=== PATIENT | female | born 1955 | race Caucasian/White ===

== ENCOUNTER 2021-09-29 08:45 | Outpatient (REF) | payer OTHER, SELFPAY ==
--- NOTE | ~2021-09-29 | MM_ITS ---
EXAMINATION: MM SCREENING DIGITAL BREAST TOMOSYNTHESIS, BILATERAL CLINICAL INFORMATION: Screening. Asymptomatic. The lifetime risk of breast cancer based on the Tyrer-Cuzick Model is 4.3%. COMPARISON: Mammography: 03/04/2016. TECHNIQUE: Digital breast tomosynthesis is performed in both the craniocaudal and mediolateral oblique views along with computer-aided detection (CAD). Synthesized 2D images are generated from the tomosynthesis. FINDINGS: There are scattered areas of fibroglandular density (ACR BI-RADS breast composition Category b). This is stable parenchymal pattern of the right breast. Within the superior medial aspect of the left breast, there is a well-circumscribed approximately 5 mm density, 4 cm from the nipple which was not seen on previous study. Targeted ultrasound evaluation is recommended. MM/MM tomosynthesis screening BI IMPRESSION: Left breast density for further evaluation with targeted ultrasound. ASSESSMENT: BI-RADS 0: Incomplete - Need Additional Imaging Evaluation RECOMMENDATION: Targeted ultrasound examination of the left breast. Radiology department staff will contact the patient for additional imaging.
== END 2021-09-29 08:46 | disposition home or self-care (01) ==
LOC: HO.MAMMO 08:45
PROVIDERS: Visit Provider Internal Medicine
DX: Z12.31 Encounter for screening mammogram for malignant neoplasm of breast (principal)
CPT/HCPCS: 77063; 77067

== ENCOUNTER 2021-11-04 11:04 | Outpatient (REF) | payer OTHER, MEDICAID, SELFPAY ==
--- NOTE | ~2021-11-04 | US_ITS ---
EXAMINATION: US DIAGNOSTIC ULTRASOUND BREAST, LEFT CLINICAL INFORMATION: Recall from screening for 5 mm smooth circumscribed nodule anterior 9:00 left breast, new from prior mammography 2017. COMPARISON: Mammography 09/29/2021, 03/04/2016. TECHNIQUE: Ultrasound left breast is is targeted to the medial breast using grayscale imaging and color Doppler without and with harmonics. FINDINGS: There is a 5 mm hypoechoic smooth nodule 9:00 position 5 cm from nipple corresponding to the finding on mammography. There are heterogeneous internal echoes and scattered posterior shadowing. There is questionable fine linear rim echogenicity which may represent rim calcification. Review of the recent mammography may show incomplete rim calcification, difficult to confirm with certainty. There is no internal or peripheral color flow. Results are discussed with the patient at time of visit. The finding is new from 2017, but otherwise long-term chronicity is unknown. There are no other mammogram since 2017. Management options discussed with patient, she favors ultrasound-guided core sampling. US/US breast LT limited IMPRESSION: 5 mm nodule 9:00 position anterior left breast with scattered posterior shadowing and heterogeneous internal echogenicity. This appears to correspond to the nodule on screening mammography, new since 2017. ASSESSMENT: BI-RADS 4: Suspicious RECOMMENDATION: Ultrasound-guided core biopsy left breast. This patient's information was entered into a reminder system with a target due date for their next mammogram.
== END 2021-11-04 11:05 | disposition home or self-care (01) ==
LOC: HO.MAMMO 11:04
PROVIDERS: PCP Internal Medicine; Visit Provider Internal Medicine
DX: R92.2 Inconclusive mammogram (principal)
CPT/HCPCS: 76642

== ENCOUNTER 2021-11-11 09:14 | Outpatient (REF) | payer OTHER, MEDICAID, SELFPAY ==
--- NOTE | ~2021-11-11 | MM_ITS ---
EXAMINATION: ULTRASOUND GUIDED CORE BIOPSY BREAST, LEFT POST PROCEDURE DIGITAL MAMMOGRAM, LEFT CLINICAL INFORMATION: Small nodule left breast for tissue sampling. COMPARISON: Mammography 09/29/2021, ultrasound 11/04/2021. FINDINGS: Proper informed consent is obtained from the patient after discussion of the procedure, potential risks and complications, and alternatives. Patient was given an opportunity for questions. The patient appeared to understand. The patient consented to the procedure and signed the consent form. GUIDANCE: Ultrasound-guided; aseptic technique. LESION: Circumscribed hypoechoic nodule 9:00 position with scattered internal echogenicity and no increased through-transmission of sound. APPROACH: Medial lateral. ANESTHESIA: 10 mL carbonated 1% lidocaine. DERMATOTOMY: Single skin smita dermatotomy performed. NEEDLE: 14-gauge Achieve core biopsy device with 13.5-gauge co-axial guide needle. CORES: 5. CLIP: HydroMARK; shape: Butterfly. POST PROCEDURE UNILATERAL DIGITAL MAMMOGRAM, LEFT: The post biopsy mammogram is performed in separate room using separate digital mammography equipment from the biopsy procedure. CC and ML views are obtained. There are scattered areas of fibroglandular density (breast composition category: b). The clip marker is in expected position. The nodule is not clearly seen although may be obscured by attenuation from local anesthesia and tissue sampling. No gross hematoma. The patient tolerated the procedure well. No immediate complications. Home instructions reviewed with the patient. Final pathology results are pending. MM/MM diagnostic mammo unilat LT IMPRESSION: 1. Status post ultrasound-guided core biopsy left breast. 2. Clip placed: HydroMARK; shape: butterfly. 3. Pathology pending. An addendum report will be issued.
[2021-11-11] MEDS: Lidocaine HCl 1 % 20 ML VIAL 10 ML SUBCUT (11:00)
[2021-11-11] MEDS: Sodium Bicarbonate 8.4% 50 MEQ/50 ML VIAL SUBCUT (11:02)
== END 2021-11-11 09:15 | disposition home or self-care (01) ==
LOC: HO.MAMMO 09:14
PROVIDERS: PCP Internal Medicine; Visit Provider Surgery
DX: N63.25 Unspecified lump in the left breast, overlapping quadrants (principal)
CPT/HCPCS: 19083; 77062; 77065; 88305; 99202

== ENCOUNTER → 2021-11-18 09:37 | Outpatient (BNVA) | payer OTHER, MEDICAID, SELFPAY | PROVIDERS: Visit Provider Surgery | DX: N63.20 Unspecified lump in the left breast, unspecified quadrant (principal) | CPT/HCPCS: 99212 ==

== ENCOUNTER 2023-05-24 07:47 | Outpatient (REF) | payer OTHER, SELFPAY ==
--- NOTE | ~2023-05-24 | MM_ITS ---
EXAMINATION: MM SCREENING DIGITAL BREAST TOMOSYNTHESIS, BILATERAL CLINICAL INFORMATION: Screening. Asymptomatic. The patient is status post benign percutaneous left breast biopsy in 2021 which showed nodular fat necrosis of the left breast. COMPARISON: Mammography: This study is compared with prior exams dating back to 2017. TECHNIQUE: Digital breast tomosynthesis is performed in both the craniocaudal and mediolateral oblique views along with computer-aided detection (CAD). Synthesized 2D images are generated from the tomosynthesis. FINDINGS: There are scattered areas of fibroglandular density (ACR BI-RADS breast composition Category b). There are no significant masses, abnormal calcifications, or other abnormalities. There is tissue marker present in a small,, well-circumscribed oval mass with some coarse calcification. This is the site of previously biopsied, benign fat necrosis. MM/MM tomosynthesis screening BI IMPRESSION: No mammographic evidence of malignancy. ASSESSMENT: BI-RADS BI-RADS 2 - Benign Findings RECOMMENDATION: Routine annual mammography screening. 1 year F/U This examination should not preclude the clinical evaluation of a suspicious palpable abnormality. This patient's information was entered into a reminder system with a target due date for their next mammogram.
== END 2023-05-24 07:48 | disposition home or self-care (01) ==
LOC: HO.MAMMO 07:47
PROVIDERS: PCP Physician Assistant; Visit Provider Physician Assistant
DX: Z12.31 Encounter for screening mammogram for malignant neoplasm of breast (principal)
CPT/HCPCS: 77063; 77067

== ENCOUNTER → 2023-05-24 08:00 | Outpatient (BNV) | payer OTHER, SELFPAY | PROVIDERS: PCP Physician Assistant; Visit Provider Radiology Diagnostic Radiology | DX: Z12.31 Encounter for screening mammogram for malignant neoplasm of breast (principal) | CPT/HCPCS: 77063; 77067 ==

== ENCOUNTER 2024-10-15 10:35 | Outpatient (AMB) | payer MEDICARE, SELFPAY ==
--- NOTE | 2024-10-15 10:40 | A.OFFVIS_ITS ---
Vital Signs 3 10/15/24 10:44 Height 5 ft 3.5 in Weight 156 lb BMI 27.2 BP 121/61 Blood Pressure Location Lt brachial Position Sitting Pulse 75 Pulse Source Pulse Oximeter Intake Visit Reasons: CHRONIC BACK PAIN Intake Note: Pain today 8.5 Audit Control Clerk Required: No Accompanied by: Self / Same As Patient Allergies codeine Allergy (Unknown, Verified 10/15/24 10:43) Unknown erythromycin base Allergy (Unknown, Verified 10/15/24 10:43) Unknown penicillin V Allergy (Unknown, Verified 10/15/24 10:43) Unknown Medication List - Last Reconciled 10/15/24 by Marycarmen Muro, RAJENDRA albuterol sulfate 90 mcg/actuation 2 puffs inhalation Q4H PRN apixaban (Eliquis) 5 mg PO BID diltiazem HCl CD (Cardizem CD) 180 mg PO DAILY duloxetine 60 mg PO DAILY duloxetine 30 mg PO DAILY lisinopril 10 mg PO DAILY pregabalin 25 mg PO DAILY trazodone 25 - 50 mg PO BEDTIME PRN HPI HPI CHRONIC BACK PAIN: Location: lower back Duration: 1 year Characteristics of symptom or complaint: stabbing, burning, pulling Aggravating or associated factors: driving, reaching, lifting, climbing stairs Relieving factors: ice, Treatment: PT, HPI Comments Details: The patient is a 69-year-old female presenting with chronic low back pain. The pain began after a fall in June of the previous year, which resulted in a compression fracture. She underwent rehabilitation at [facility] and physical therapy following the injury in July 2023. The patient's pain is described as constant, stabbing, burning, and pulling, with a severity of 9/10 in the morning and night, and 6/10 during the day. The pain is exacerbated by movements, walking, weather changes, and affects her sleep and daily activities. Activities such as driving, reaching, lifting, and climbing stairs are particularly difficult, and standing in one place is very challenging. The patient has a history of a traumatic brain injury in 2010, with no subsequent seizures. She also has polyneuropathy affecting her feet and hands, though the cause has not been determined. Additionally, she has a history of vascular surgery due to a blood clot in her left leg, for which she takes Eliquis. The patient lives alone but has a supportive social network and receives assistance from a helper twice a week. She retired early to care for a grandchild and previously ran a cleaning business. Currently, she manages her pain primarily with ice and avoids Motrin due to gastrointestinal concerns. - Onset: Began after a fall in June of the previous year - Quality: Constant, stabbing, burning, pulling - Severity: 9/10 in the morning and night, 6/10 during the day - Location: Lower back, radiating to thoracic region - Exacerbating factors: Movements, walking, weather changes - Relieving factors: None specifically mentioned - Interference: Affects sleep, daily activities, driving, reaching, lifting, climbing stairs, standing - Affect: Pain impacts sleep and daily activities - Analgesia: Currently using ice; avoids Motrin due to gastrointestinal concerns - Adverse Effects: None reported from current pain management - Activities of Daily Living: Pain interferes with driving, reaching, lifting, climbing stairs, standing - Aberrant Drug Related Behaviors: None reported Oswestry Low Back Pain Disability Score=26 [facility] Medical History Hyperlipidemia Major depression Stress incontinence Thoracic compression fracture DVT (deep venous thrombosis) Hypertension Traumatic brain injury Left breast mass Social History Alcohol intake: never Tobacco use type: Cigarette Review of Systems Const Details: - Musculoskeletal: Reports chronic low back pain, paraspinal and midline tenderness in lower thoracic and upper lumbar regions - Neurological: Reports polyneuropathy in feet and hands, denies seizures. Denies bladder or bowel dysfunction or saddle anesthesia. All systems reviewed & are unremarkable except as noted in HPI and below Physical Exam Vital Signs: Last Vital Signs Pulse 75 10/15/24 10:44 BP 121/61 10/15/24 10:44 BMI result Body Mass Index 27.2 General: Appears afebrile. Alert and oriented. Mood and affect appropriate. Follows and participates in conversation appropriately. Respiratory effort is unlabored. No cough. Able to transition from sit to stand unassisted. Ambulates with bilaterally normal heel strike and toe off. General: Yes no CVA tenderness Back/Spine/Pelvis Other: Limited thoracolumbar ROM due to pain. Lumbar extension and axial rotations reproduce moderate pain, flexion is intact and reproduces mild discomfort in the lower back. Demonstrates 5/5 strength of quadriceps bilaterally as well as flexion/dorsiflexion of bilateral feet against resistance. 2+ pedal pulses bilaterally. Straight leg rise with dorsiflexion negative bilaterally. +2 patellar and achilles reflexes bilaterally. Facet loading test positive bilaterally. Karissa sign, Erick?s, Gaenslen, Pelvic compression and Stinchfield tests are positive bilaterally. No groin pain with I/E hip rotations. Valsalva maneuver negative. Back: no CVA tenderness Cervical Spine: cervical ROM normal, cervical muscular tenderness and No Cervical spine tenderness Thoracic/Lumbar Spine: thoracic and lumbar spine normal to inspection, No Thoracic/lumbar spine scar(s), Lasegue's sign negative, straight leg raise negative bilaterally, pain with thoraco-lumbar ROM, paraspinal muscle tenderness on the right greater than left, thoraco-lumbar ROM limited, thoracic spinal tenderness (lower thoracic) and lumbar spinal tenderness (upper lumbar) Sacroiliac joints: bilaterally tender to palpation Results Reviewed Results Reviewed: Assessment & Plan Assessment & Plan (1) Thoracic compression fracture: Comment: T7, T12 Code(s): S22.000A - Wedge compression fracture of unspecified thoracic vertebra, initial encounter for closed fracture Category: Medical (2) Chronic back pain: Code(s): M54.9 - Dorsalgia, unspecified; G89.29 - Other chronic pain Category: Medical (3) Spondylosis of thoracolumbar spine: Code(s): M47.815 - Spondylosis without myelopathy or radiculopathy, thoracolumbar region Category: Medical Plan The plan for managing the patient's chronic low back pain includes scheduling d iagnostic bilateral medial branch blocks at T12, L1, and L2 with local and fluoroscopy to confirm axial thoracolumbar pain. If the blocks provide relief, the patient may qualify for radiofrequency ablation or peripheral nerve stimulation, which could provide her a longer term pain relief. The patient is instructed to hold Eliquis for three days prior to the injections, pending approval from her primary care physician and insurance. A bone density scan is recommended to assess for osteoporosis, given the history of compression fractures. All questions and concerns have been answered and patient agreed with the treatment plan. Follow up after injections and sooner as needed. Patient was informed and verbally consented to the use of an ambient scribe for clinic note documentation during this visit. Orders: Orders 2 XR DEXA axial skeleton 10/15/24 M81.0 - Age-related osteoporosis without current pathological fracture, S22.000A - Wedge compression fracture of unspecified thoracic vertebra, initial encounter for closed fracture Coding Level of Care Code New Pt Level 4 (97470) Diagnoses Thoracic compression fracture S22.000A Chronic back pain M54.9; G89.29 Spondylosis of thoracolumbar spine M47.815
[2024-10-15 10:44] VITALS: BP 121/61; PULSE 75; BMI 27.2
--- OUTSIDE RECORDS SUMMARY | 2024-10-15 12:29 | XMS_ITS | Encounter Summary ---
Author Organization [facility] Address [address] [facility] [address] [place] [phone] Phone Care Team Providers Care Pilot Boat Operator Name Role Phone Salvador Khoury MD Primary Care Provider + Salvador Khoury MD Primary Care Provider + Roney Tracey MD Primary Care Provider [phone] Roney Tracey MD Primary Care Provider [phone] Yandel Man MD Primary Care Provider Raakn Mckinney MD Primary Care Provid er Encounter Details Date Type Department Care Team (Late st Contact Info) Description 07/23/2018 Ancillary Orders [facility],Outside Imaging [address] [place] [address] System, Provider Not In, PhD Partners [address] [address] Social History Tobacco Use Types Packs/Day Years Used Date Smoking Tobacco: Never Smokeless Tobacco: Never Alcohol Use Standard Drinks/Week Comments Not Currently 0 (1 standard drink = 0.6 oz pur e alcohol) Comments No Sex and Gender Information Value Date Recorded Sex Assigned at Female 06/11/2018 2:26 PM EDT Legal Sex Female 8:12 AM EDT Gender Identity Female 06/11/2018 2:26 PM EDT Sexual Orientation Lesbian or Lopez 06/19/2018 5: 11 PM EDT documented as of this encounter Plan of Treatment Not on file documented as of this encounter Results * Mammogram Outside (No Interpretation) (03/04/2016 12:00 AM EST) Narrative SYSTEMGENERATED, DOCUMENTATION - 07/23/2018 10:13 AM EDT This study is for PACS storage only and not for interpretation. us Provider Not In System PhD IMG OUTSIDE IMAGING W /OUT INTERPRETATION Final Result documented in this encounter Visit Diagnoses Not on filedocumented in this encounter Additional Health Concerns Infection Onset Date Last Indicated Resolved Time CoV-Risk 10/06/2021 10/06/2021 10/17/2021 1:21 AM EDT documented as of this encounter Care Teams Pilot Boat Operator Relationship Specialty Start Date End Date Salvador Khoury MD [email or web address] PCP - General Family Medicine 06/06/1801/06/19 Salvador Khoury MD [email or web address] PCP - General Family Medicine 01/07/1908/06 Roney Tracey MD [address] [place] [address] [email or web address] PCP - General Internal Medicine 08/22/19 07/19/20 Roney Tracey MD [address] [place] [address] PCP - General Internal Medicine 07/20/20 10/03/21 Yandel Man MD [address] [place] [phone] PCP - General Internal Medicine 10/04/21 08/11/24 Rakan Mckinney MD [address] [place] [phone] PCP - General Internal Medicine 08/12/24 documented as of this encounter Additional Source Comments The information contained in this document represents components of the legal health record. It is not the complete legal health record.[facility]
--- OUTSIDE RECORDS SUMMARY | 2024-10-15 12:29 | XMS_ITS | Encounter Summary ---
Author Organization [facility] Address [address] [facility] [place] [address] [place] [address] Phone Care Team Providers Care Insulation Helper Name Role Phone Roney Tracey MD Primary Care Provider [phone] Roney Tracey MD Primary Care Provider Yandel Man MD Primary Care Provider Rakan Mckinney MD Primary Care Provid er Encounter Details Date Type Department Care Team (Late st Contact Info) Description 08/30/2019 Procedure Pass [address] [place] [address] Social History Tobacco Use Types Packs/Day Years [...] on file documented as of this encounter Visit Diagnoses Not on filedocumented in this encounter Additional Health Concerns Infection Onset Date Last Indicated Resolved Time CoV-Risk 10/06/2021 10/06/2021 10/17/2021 1:21 AM EDT Assessment Noted Time PHQ-2 Depression Total Score: 0 08/21/19 20 8:21 AM EDT documented as of this encounter Care Teams Insulation Helper Relationship Specialty Start Date End Date Roney Tracey MD [address] [place] [address] [email or web address] PCP - General Internal Medicine 08/22/19 07/19/20 Roney Tracey MD [address] [place] [address] [email or web address] PCP - General Internal Medicine 07/20/20 10/03/21 Yandel Man MD [address] [place] [phone] PCP - General Internal Medicine 10/04/21 08/11/24 Rakan Mckinney MD [address] [place] [phone] PCP - General Internal Medicine 08/12/24 documented as of this encounter Additional Source Comments The information contained in this document represents components of the legal health record. It is not the complete legal health record.[facility]
--- OUTSIDE RECORDS SUMMARY | 2024-10-15 12:29 | XMS_ITS | Encounter Summary ---
Author Organization [facility] Address [address] [facility] [address] [place] [address] Phone Care Team Providers Care Flying Instructor Name Role Phone Salvador Khoury MD Primary Care Provider + Salvador Khoury MD Primary Care Provider + Roney Tracey MD Primary Care Provider [phone] Roney Tracey MD Primary Care Provider [phone] Yandel Man MD Primary Care Provider Rakan Mckinney MD Primary Care Provid er Encounter Details Date Type Department Care Team (Late st Contact Info) Description 09/10/2018 Ancillary Orders [facility] Sports Medicine [address] [place] [address] Tiara Ruelas MD [address] [place] [address] Orthopedics & Sports Medicine, [facility]. [place], [place] [id number] [email or web address] Social History Tobacco Use Types Packs/Day Years [...] documented as of this encounter Care Teams Flying Instructor Relationship Specialty Start Date End Date Salvador Khoury MD [email or web address] PCP - General Family Medicine 06/06/1801/06/19 Salvador Khoury MD [email or web address] PCP - General Family Medicine 01/07/1908/06 Roney Tracey MD [address] [place] [address] [email or web address] PCP - General Internal Medicine 08/22/19 07/19/20 Roney Tracey MD [address] [place] [phone] [email or web address] PCP - General Internal Medicine 07/20/20 10/03/21 Yandel Man MD [address] [place] [phone] PCP - General Internal Medicine 10/04/21 08/11/24 Rakan Mckinney MD [address] [place] [phone] PCP - General Internal Medicine 08/12/24 documented as of this encounter Additional Source Comments The information contained in this document represents components of the legal health record. It is not the complete legal health record.[facility]
--- OUTSIDE RECORDS SUMMARY | 2024-10-15 12:29 | XMS_ITS | Encounter Summary ---
Author Organization [facility] Address [address] [employer] [facility] [address] [place] [address] Phone Care Team Providers Care Frequency Checker Name Role Phone Marta Chauhan MD Primary Care Provider [phone] Salvador Khoury MD Primary Care Provider + Salvador Khoury MD Primary Care Provider + Roney Tracey MD Primary Care Provider [phone] Roney Tracey MD Primary Care Provider [phone] Yandel Man MD Primary Care Provider Rakan Mckinney MD Primary Care Provid er Encounter Details Date Type Department Care Team (Late st Contact Info) Description 04/20/2018 Procedure Pass [facility], [address] [place] [address] Social History Tobacco Use Types Packs/Day Years Used Date Smoking Tobacco: Never Assessed Comments Unknown Sex and Gender Information Value Date Recorded [...] documented as of this encounter Care Teams Frequency Checker Relationship Specialty Start Date End Date Marta Chauhan MD [address] [address] PCP - General 10/04/17 06/05/18 Salvador Khoury MD [address] [address] [email or web address] PCP - General Family Medicine 06/06/1801/06/19 Salvador Khoury MD [address] [address] [email or web address] PCP - General Family Medicine 01/07/1908/06 Roney Tracey MD [address] [place] [address] PCP - General Internal Medicine 08/22/19 07/19/20 Roney Tracey MD [address] [place] [address] PCP - General Internal Medicine 07/20/20 10/03/21 Yandel Man MD [address] [place] [phone] PCP - General Internal Medicine 10/04/21 08/11/24 Rakan Mckinney MD [address] [phone] PCP - General Internal Medicine 08/12/24 documented as of this encounter Additional Source Comments The information contained in this document represents components of the legal health record. It is not the complete legal health record.[facility]
--- OUTSIDE RECORDS SUMMARY | 2024-10-15 12:29 | XMS_ITS | Encounter Summary ---
Author Organization [facility] Address [address] [place] [address] Phone Care Team Providers Care Automotive Assembler Name Role Phone Marta Chauhan MD Primary Care Provider [phone] Marta Chauhan MD Primary Care Provider [phone] Salvador Khoury MD Primary Care Provider + Salvador Khoury MD Primary Care Provider + Roney Tracey MD Primary Care Provider [phone] Roney Tracey MD Primary Care Provider [phone] Yandel Man MD Primary Care Provider Rakan Mckinney MD Primary Care Provid er Encounter Details Date Type Department Care Team (Late st Contact Info) Description 09/26/2017 Procedure Pass [address] [place] [address] Social History Tobacco Use Types Packs/Day Years Used Date Smoking Tobacco: Never Assessed Comments Unknown Sex and Gender Information Value Date Recorded Sex Assigned at Female 06/11/2018 2:26 PM EDT Legal Sex Female 8:12 AM EDT Gender Identity Female 06/11/2018 2:26 PM EDT Sexual Orientation Lesbian or Lopez 06/19/2018 5: 11 PM EDT documented as of this encounter Last Filed Vital Signs Vital Sign Reading Time Taken Comments Blood Pressure - - Pulse - - Temperature - - Respiratory Rate - - Oxygen Saturation - - Inhaled Oxygen Concentration - - Weight 85.3 kg (188 lb) 09/28/2017 3:15 PM EDT Height 160 cm (5' 3 ) 09/28/2017 3:15 PM EDT Body Mass Index 33.3 09/28/2017 3:15 PM EDT documented in this encounter Plan of Treatment Not on file documented as of this encounter Visit Diagnoses Not on filedocumented in this encounter Additional Health Concerns Infection Onset Date Last Indicated Resolved Time CoV-Risk 10/06/2021 10/06/2021 10/17/2021 1:21 AM EDT documented as of this encounter Care Teams Automotive Assembler Relationship Specialty Start Date End Date Marta Chauhan MD [address] [address] [email or web address] PCP - General 10/04/17 06/05/18 Marta Chauhan MD [address] [address] [email or web address] PCP - General Internal Medicine 09/26/17 10/03/17 Salvador Khoury MD [address] [address] [email or web address] PCP - General Family Medicine 06/06/1801/06/19 Salvador Khoury MD [address] [address] PCP - General Family Medicine 01/07/1908/06 Roney Tracey MD [address] [place] [address] [email or web address] PCP - General Internal Medicine 08/22/19 07/19/20 Roney Tracey MD [address] [place] [address] [email or web address] PCP - General Internal Medicine 07/20/20 10/03/21 Yandel Man MD [address] [place] [phone] PCP - General Internal Medicine 10/04/21 08/11/24 Rakan Mckinney MD [address] [place] [phone] PCP - General Internal Medicine 08/12/24 documented as of this encounter Additional Source Comments The information contained in this document represents components of the legal health record. It is not the complete legal health record.[facility]
--- OUTSIDE RECORDS SUMMARY | 2024-10-15 12:29 | XMS_ITS | Encounter Summary ---
Author Organization [facility] Address [address] [facility] [address] [place] [address] Phone Care Team Providers Care Oracle Security Consultant Name Role Phone Salvador Khoury MD Primary Care Provider + Salvador Khoury MD Primary Care Provider + Roney Tracey MD Primary Care Provider [phone] Roney Tracey MD Primary Care Provider [phone] Yandel Man MD Primary Care Provider Rakan Mckinney MD Primary Care Provid er Encounter Details Date Type Department Care Team (Late st Contact Info) Description 08/28/2018 Procedure Pass [facility], [address] [address] Social History Tobacco Use Types Packs/Day Years [...] documented as of this encounter Care Teams Oracle Security Consultant Relationship Specialty Start Date End Date Salvador Khoury MD [email or web address] PCP - General Family Medicine 06/06/1801/06/19 Salvador Khoury MD [email or web address] PCP - General Family Medicine 01/07/1908/06 Roney Tracey MD [address] [place] [address] [email or web address] PCP - General Internal Medicine 08/22/19 07/19/20 Roney Tracey MD [address] [place] [phone] PCP - General Internal Medicine 07/20/20 10/03/21 Yandel Man MD [address] [place] [phone] PCP - General Internal Medicine 10/04/21 08/11/24 Rakan Mckinney MD [address] [place] [phone] PCP - General Internal Medicine 08/12/24 documented as of this encounter Additional Source Comments The information contained in this document represents components of the legal health record. It is not the complete legal health record.[facility]
--- OUTSIDE RECORDS SUMMARY | 2024-10-15 12:29 | XMS_ITS | Clinical Summary ---
Author Organization [facility] Address [address] [place] [address] Care Team Providers Care Sample Color Maker Name Role Phone Stella Rodriguez MD Primary Care Provider [phone] Allergies Active Allergy Reactions Criticality Noted Date Comments Azithromycin Rash Low 06/07/2018 Codeine Abdominal Pain 07/12/2020 Erythromycin Rash 07/12/2020 Latex, Natural Rubber 07/13/2020 Added based on information entered during case entry, please review and add reactions, type, and severity as needed Oxycodone Dizziness 06/07/2018 Medications apixaban (Eliquis) 5 mg tablet Take 5 mg by mouth 2 times daily. 0 Active busPIRone (BUSPAR) 5 mg tablet TAKE 1 TABLET BY MOUTH TWICE A DAY 1 Active gabapentin (NEURONTIN) 600 mg tablet Take 600 mg by mouth 3 times daily. 1 Active metoprolol succinate XL (TOPROL XL) 100 mg tablet 1 TABLET DAILYINSTR:FOR TEREMOR AND BP CONTROL CALL IF PALPITATIONS DO NOT CRUSH OR CHEW 0 Active risperiDONE (RisperDAL) 1 mg tablet TAKE 1 TABLET BY MOUTH EVERYDAY AT BEDTIME 0 Active LORazepam (ATIVAN) 0.5 mg tablet TAKE HALF A TABLET BY MOUTH EVERY 12 HOURS NEEDED FOR ANXIETY. 1 Active losartan (COZAAR) 50 mg tablet Take 50 mg by mouth daily. 0 Active FLUoxetine (PROzac) 10 mg capsule Take 10 mg by mouth daily. 1 Active HYDROcodone-rohith taminophen (NORCO) 7.5-325 mg per tablet TAKE 1 TABLET BY MOUTH EVERY 8 (EIGHT) HOURS NEEDED FOR PAIN (RIGHT LOWER BACK) 1 Active diclofenac (VOLTAREN) 1% gel 1 APPLICATION TOPICALLY 4 TIMES A DAY NEEDED FOR PAIN 1 Active ALPRAZolam (XANAX) 1 mg tablet Take 1 mg by mouth 4 times a day. 1 Active dicyclomine (BENTYL) 20 mg tablet Take 1 tablet (20 mg total) by mouth 3 times a day as needed (abdominal cramping). 20 tablet 1 Active ketoconazole (NIZORAL) 2% cream Apply topically to the affected area 2 times a day. 30 g 2 Active Active Problems No known active problems Social History Tobacco Use Types Packs/Day Years Used Date Smoking Tobacco: Never Smokeless Tobacco: Never Alcohol Use Standard Drinks/Week Comments Never 0 (1 standard drink = 0.6 oz pur e alcohol) Comments No Sex and Gender Information Value Date Recorded Sex Assigned at Not on file Legal Sex Female 9:47 AM EDT Gender Identity Not on file Sexual Orientation Not on file Last Filed Vital Signs Vital Sign Reading Time Taken Comments Blood Pressure 136/54 03/16/2021 9:07 AM EST Pulse 77 03/16/2021 9:07 AM EST Temperature 36.4 C (97.6 F) 03/16/2021 9:07 AM EST Respiratory Rate 16 03/16/2021 9:07 AM EST Oxygen Saturation 99% 03/16/2021 9:07 AM EST Inhaled Oxygen Concentration - - Weight 79 kg (174 lb 2.6 oz) 03/16/2021 7:41 AM EST Height 160 cm (5' 3 ) 03/16/2021 7:41 AM EST Body Mass Index 30.85 03/16/2021 7:41 AM EST Plan of Treatment Health Maintenance Due Date Last Done Comments Hepatitis C Screening 1955 Mammogram 1993 Osteoporosis Screening 04/23/2003 Pneumococcal Vaccine: 50+ Years (1 of 1 - PCV) 04/23/2003 Zoster Vaccines (1 of 2) 04/23/2003 DTaP,Tdap,and Td Vaccines (3 - Td or Tdap) 05/10/2021 05/11/2011, 05/11/2011 Colonoscopy 07/16/2021 07/16/2020, 07/16/2020, 07/16/2020 Alcohol/Substance Use Screening 02/07/2024 Depression Screening and Follow-Up 02/07/2024 Health Care Proxy Review 02/07/2024 Social Drivers of Health Annual Screening 02/07/2024 COVID-19 Vaccine (3 - 2024-2 6 season) 2024 12/14/2020, 05/07/2020 Influenza Vaccine (#1) 2024 10/15/2020 RSV Vaccine (60+ years old and patients) (1 - 1-dose 75+ series) 2028 Hepatitis B Vaccines Aged Out No long er eligible based on patient's age to complete this topic Procedures * Due to [place] [employer] law, this organization might not be sharing negative HIV tests. Procedure Name Priority Date/Time Associated Diagnosis Comments COLONOSCOPY 07/16/2020 from Last 3 Months or Most Recently Relevant to Health Maintenance Results * Due to [place] [employer] law, this organization might not be sharing negative HIV tests. * COLONOSCOPY (07/16/2020) Narrative Procedure Note Jaron Madrid MD PhD - 07/16/2020 8:34 AM EDT Gastroenterology Patient Name: Thomas Dyer Procedure Date: 07/16/2020 8:34 AM Date of : 1955 Admit Type: Outpatient Age: 65 Room: [place] [address] Gender: Female Note Status: Finalized Attending MD: Jared Madrid MD Procedure: Colonoscopy Indications: Clinically significant diarrhea of unexplained origin Comorbidities Providers: Jared Madrid MD, Kelvin Dyer MD (Fellow) Referring MD: Catracho Clemente MD (Referring MD) Requesting Provider: Medicines: Monitored Anesthesia Care Complications: No immediate complications. Estimated Blood Loss: Estimated blood loss was minimal. Procedure: After I obtained informed consent, the scope was passed under direct vision. Throughout the procedure, the patient's blood pressure, pulse, and oxygen saturations were monitored continuously. The Colonoscope was introduced through the anus and advanced to the cecum, identified by appendiceal orifice and ileocecal valve.The colonoscopy was performed without difficulty. Thepatient tolerated the procedure well. The quality of the bowel preparation was poor. Findings: Hemorrhoids were found on perianal exam. A moderate amount of semi-liquid stool was found in the sigmoidcolon, in the descending colon, in the ascending colon and in the cecum, interfering with visualization. Biopsies for histology were taken with a cold forceps from the right colon and left colon for evaluation of microscopic colitis. The retroflexed view of the distal rectum and anal verge was normaland showed no anal or rectal abnormalities. Impression: - Preparation of the colon was poor. - Hemorrhoids found on perianal exam. - Stool in the sigmoid colon, in the descending colon,in the ascending colon and in the cecum. - The distal rectum and anal verge are normal on retroflexion view. - Biopsies were taken with a cold forceps from theright colon and left colon for evaluation of microscopiccolitis. Recommendation: - The patient will be observed post-procedure, untilall discharge criteria are met. - Discharge patient to home. - Advance diet as tolerated. - Resume Eliquis (apixaban) at prior dose today. - Await pathology results. - Repeat colonoscopy in 1 year for surveillance given history of colon polyps and poor prep. Attending Participation: I was present and participated during the entire procedure, including non-singleton portions. Jared Madrid MD 07/16/2020 9:06:13 AM This report has been signed electronically. Number of Addenda: 0 Note Initiated On: 07/16/2020 8:34 AM Jaron Madrid MD PhD PROVATION PROCEDURES Final Result from Last 3 Months or Most Recently Relevant to Health Maintenance Insurance [facility] [id number] [id number] Care Teams Sample Color Maker Relationship Specialty Start Date End Date Stella Rodriguez MD [address] [place] [address] PCP - General 03/16/21
--- OUTSIDE RECORDS SUMMARY | 2024-10-15 12:29 | XMS_ITS | Encounter Summary ---
Author Organization [facility] Address [address] [facility] [address] [place] [address] Phone Care Team Providers Care Casing Wringer Operator Name Role Phone Yandel Man MD Primary Care Provider Rakna Mckinney MD Primary Care Provid er Encounter Details Date Type Department Care Team (Late st Contact Info) Description 10/06/2021 Procedure Pass [facility], [facility] - [address] [address] Social History Tobacco Use Types Packs/Day Years Used Date Smoking Tobacco: Former Cigarettes 0.5 10 Smokeless Tobacco: Never Comments:quit 30 yrs ago Alcohol Use Standard Drinks/Week Comments Not Currently 0 (1 standard drink = 0.6 oz pur e alcohol) Comments No Sex and Gender Information Value Date Recorded Sex Assigned at Female 06/11/2018 2:26 PM EDT Legal Sex Female 8:12 AM EDT Gender Identity Female 06/11/2018 2:26 PM EDT Sexual Orientation Lesbian or Lopez 06/19/2018 5: 11 PM EDT documented as of this encounter Functional Status * Calculated C-SSRS Risk Score (Lifetime/Recent) Answer Date of Assessment Author No Risk Indicated 10/06/2021 6:41 AM EDT Frances Ramos RN * [place] Suicide Severity Rating Scale (Screener/Recent Self-Report) Question Answer Date of Assessment Author 1. Wish to be (Past 1 Month) No 022 6:41 AM EDT Frances Ramos RN 2. Non-Specific Active Suici hermelindo Thoughts (Past 1 Month) No 10/06/2021 6:41 AM EDT Eunice Ramos RN 6. Suicidal Behavior (Lifetime) No 6:41 AM EDT Frances Ramos RN documented as of this encounter Plan of Treatment Not on file documented as of this encounter Visit Diagnoses Not on filedocumented in this encounter Additional Health Concerns Infection Onset Date Last Indicated Resolved Time CoV-Risk 10/06/2021 10/06/2021 10/17/2021 1:21 AM EDT Assessment Noted Time PHQ-2 Depression Total Score: 0 08/21/19 20 8:21 AM EDT documented as of this encounter Care Teams Casing Wringer Operator Relationship Specialty Start Date End Date Yandel Man MD [address] [place] [phone] PCP - General Internal Medicine 10/04/21 08/11/24 Rakan Mckinney MD [address] [place] [phone] PCP - General Internal Medicine 08/12/24 documented as of this encounter Additional Source Comments The information contained in this document represents components of the legal health record. It is not the complete legal health record.[facility]
--- OUTSIDE RECORDS SUMMARY | 2024-10-15 12:29 | XMS_ITS | Encounter Summary ---
Author Organization [facility] Address [address] [address] Phone Care Team Providers Care Ring Rolling Machine Operator Name Role Phone Marta Chauhan MD Primary Care Provider [phone] Salvador Khoury MD Primary Care Provider + Salvador Khoury MD Primary Care Provider + Roney Tracey MD Primary Care Provider [phone] Roney Tracey MD Primary Care Provider [phone] Yandel Man MD Primary Care Provider Rakan Mckinney MD Primary Care Provid er Encounter Details Date Type Department Care Team (Late st Contact Info) Description 04/20/2018 Ancillary Orders Virtual Department [address] [place] [address] Marta Chauhan MD [address] [place] [address] [email or web address] Social History Tobacco Use Types Packs/Day Years [...] documented as of this encounter Care Teams Ring Rolling Machine Operator Relationship Specialty Start Date End Date Marta Chauhan MD [address] [address] [email or web address] PCP - General 10/04/17 06/05/18 Salvador Khoury MD [address] [address] [email or web address] PCP - General Family Medicine 06/06/1801/06/19 Salvador Khoury MD [address] [address] [email or web address] PCP - General Family Medicine 01/07/1908/06 Roney Tracey MD [address] [place] [address] [email or web address] PCP - General Internal Medicine 08/22/19 07/19/20 Roney Tracey MD [address] [place] [address] PCP - General Internal Medicine 07/20/20 10/03/21 Yandel Man MD [address] [place] [phone] PCP - General Internal Medicine 10/04/21 08/11/24 Rakan Mckinney MD [address] [place] [phone] PCP - General Internal Medicine 08/12/24 documented as of this encounter Additional Source Comments The information contained in this document represents components of the legal health record. It is not the complete legal health record.[facility]
--- OUTSIDE RECORDS SUMMARY | 2024-10-15 12:29 | XMS_ITS | Clinical Summary ---
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 back upper back and forearms did discuss the best treatment here is adequate sleeper stretching exercise. Patient states that she was given morphine sulfate as she is intolerant of the medications and seemed to work well we will try that for now but I am not in favor of doing on a chronic basis she is on gabapentin 300 mg 3 times a day already consider increasing the dose. 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 It is unclear whether she needs to remain on the anticoagulant but she does have a follow-up with Dr. Dorantes coming up in April. She'll remain on the anticoagulant and she will go with her activated sludge attendant who will pose the question whether the anticoagulant is permanent. Assessment & Plan (02/20/2019 7:43 PM EST): On chr anticoag wo recurrence and chr edema responds to support hose but rec wgt reduction to decr hydrostatic pressure Assessment & Plan (01/24/2019 12:26 PM EST): Reassured partner that eliquis doesn't have to be exactl;y q 12h as being usewd for prevention of DVT Assessment & Plan (12/26/2018 8:15 PM EST): Patient with a recent visit with interventional radiologist at [facility] said she still has some small clots these appear to be superficial she is on anti-and clotting factors and do not recommend any further follow-up kept the use of compression stockings which patient has no trouble putting on Assessment & Plan (12/13/2018 10:34 PM EST): [facility]ady [facility] w clots sds superficial lifelong eliquis wo bleeding trouble Assessment & Plan (08/28/2018 1:47 PM EDT): Patient remains on Eliquis, she does have chronic swelling and pain of the left lower extremity. Assessment & Plan (06/08/2018 11:30 AM EDT): patient with question may Thurner abnormality in the left femoral vein with acute DVT in February 28 was at [facility] for 6 days with thrombolysis and stents placed and been on chronic anticoagulation initially Lovenox and Coumadin now eliquis for at least 6 to 12 months question lifelong. Follow-up with interventional radiologist at [facility] Benign essential hypertension 06/08/2018 Assessment & Plan (07/03/2020 9:12 AM EDT): Hypertension well controlled with current listed antihypertensives. Denies side effects No change to dosing. Low Sodium diet reinforced. Continue to monitor condition. Assessment & Plan (06/08/2020 9:10 AM EDT): Hypertension well controlled with current listed antihypertensives. Denies side effects No change to dosing. Low Sodium diet reinforced. Continue to monitor condition. Assessment & Plan (11/11/2019 1:01 PM EDT): At 130/74 blood pressure is mildly elevated but okay for her age group. Continue to monitor. We will follow-up with the patient in about a month at which time we might consider repeating labs. Continue Avapro 150. Low-sodium diet reinforced Assessment & Plan (08/30/2019 12:54 PM EDT): Hypertension well controlled with current listed antihypertensives. Denies side effects No change to dosing. Low Sodium diet reinforced. Continue to monitor condition. Assessment & Plan (08/21/2019 6:57 PM EDT): Hypertension well controlled with current listed antihypertensives. Denies side effects No change to dosing. Low Sodium diet reinforced. Continue to monitor condition. Assessment & Plan (12/26/2018 8:16 PM EST): Blood pressure well controlled on losartan and metoprolol without side effects of meds Assessment & Plan (08/28/2018 1:47 PM EDT): Holding Avapro and Toprol-XL as above, restart medications after 24 hours. Assessment & Plan (06/08/2018 11:28 AM EDT): Patient with history of retention with low blood pressure no may be contributing some of her perceived weakness recommend decreasing the dose of the hyper Alexandra in half. Monitor at home review of her labs show no evidence of renal disease. Bipolar 1 disorder, depressed, moderate 06/09/19 19 Assessment & Plan (08/28/2018 1:49 PM EDT): Patient remains on Prozac in the morning, Xanax 4 times daily as needed, Risperidone at night, and Topamax at night. She is also on Neurontin 300 mg 3 times daily which I presume is ordered for her chronic body pain. Depending on CVA work-up, patient may need adjustment in these medications with the help of psychiatry. Assessment & Plan (06/08/2018 11:34 AM EDT): Patient multiple medications get some seems, duplicative including Topamax and gabapentin. States she is followed by the [facility] and her has a therapist there Karan Gomez. Will contact them hopefully to get records and to see if they would conceivably switch her Prozac or adding Cymbalta as it might have more pain relieving ability for total body/5 myalgia pain Glucose intolerance 06/08/2018 Assessment & Plan (11/11/2019 1:03 PM EDT): Recent lab study at less than 6.0% holding steady on metformin low-dose. Can repeat in about 6 months. Continue current Assessment & Plan (06/08/2018 11:35 AM EDT): Last A1c done by her third PCP was 5.1 prior to that was 5.8 sugars reviewed the highest I saw was 101 not see need for any medication at this time probably check twice a year Total body pain 06/07/2018 Assessment & Plan (12/25/2019 2:11 PM EST): This patient has a lot of osteoarthritis in the shoulders, elbows, knees and also in the lower back. The history of recent falls and somersault falls has led to her increased pain. We will increase the Vicodin from 5 to 10 mg over the weekend and I will regroup with her Monday or Monday to discuss both short and long-term treatment. Of course before that telephone visit if she is feeling drowsy with the additional 5 mg of hydrocodone she should call us up and I will investigate what other pathways there are to help with her pain. 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 For this she is taking the morphine sulfate previously prescribed by her previous primary care physician. We will not make any changes to the dosing at this time. Assessment & Plan (03/20/2019 10:36 PM EST): Total body pain somewhat dysarthric which is common and is needing some help do not feel that increasing her dose of morphine would be in her best interest and concerned about increasing her chance of falling. Assessment & Plan (01/24/2019 12:24 PM EST): Works well wo sedation but needs 1 or 2 tabs to decr pain so as to allow her to do her walking exrcise Assessment & Plan (12/13/2018 10:33 PM EST): Likely fibro and wants MS 2 tabs bid + drug contract Signed and denies use when driving Assessment & Plan (08/28/2018 1:49 PM EDT): Continue short acting morphine as prescribed, we will need to monitor her mental status as polypharmacy could be playing a role in the presentation. Continue Neurontin as prescribed, renal function is stable. Continue bowel regimen as prescribed. Assessment & Plan (06/27/2018 11:01 PM EDT): Patient with total body pain feels she probably has fibromyalgia but is not been able to function tolerating the morphine 3 to 4day and is feeling like it is functional and her bowels been moving she is gabapentin also. Did rx 120 for 1 motnh Assessment & Plan (06/08/2018 11:32 AM EDT): Qu estion to part to her traumatic brain injury 2000 but is the biggest mainly fibromyalgia variant question due to traumatic brain injury in 2000. Resolved Problems Problem Noted Date Diagnosed Date Resolved Date Hyponatremia 12/26/2018 03/18/2020 Assessment & Plan (09/18/2019 1:04 PM EDT): The patient's history of hyponatremia has had prompted us to obtain a Chem-7 which came back normal kidney function and normal sodium level at this time. We can follow the level of perhaps in a few months but for now patient is told that the hyponatremia has resolved. Assessment & Plan (08/30/2019 12:55 PM EDT): History of hyponatremia, obtain Chem-7, review of med list reveals no overtly offending agents such as hydrochlorothiazide, other agents however possible SIADH. Will compare sodium level with prior sodium levels, no overt signs of hyponatremia on exam. Assessment & Plan (08/21/2019 6:56 PM EDT): This is thought to be a 1 off but could have been recurring hyponatremia secondary to SIADH associated with pituitary damage. Check Chem-7 to assess for hyponatremia. Assessment & Plan (12/26/2018 8:17 PM EST): Patient with history of hyponatremia moderately severe with one admission last few been normal will check CHEM profile. Trochanteric bursitis of left hip 09/12/2018 03/20/2019 Assessment & Plan (09/12/2018 12:12 PM EDT): Patient with an element of bursitis on top of her trigger point as evidenced by the fact that the right one is improved after her shot from the orthopedist do not see the need for her to getting any intra-articular joint shot in the hip but I though it was a waste of the visit did post consent risks of bleeding infection did give her shot Encounters Date Type Department Care Team Description 08/16/2024 9:44 AM EDT - 08/16/2024 11:59 PM EDT Hospital Encounter [address] [address] Lillian Engel NP Discharge Disposition: Home or Self Care 08/05/2024 Procedure Pass [address] [address] 08/05/2024 Transcribe Orders Virtual Department [address] [place] [id number] Lillian Engel NP Pathological fracture, other site, initial encounter for fracture (Primary Dx) from Last 3 Months Immunizations Immunization Administration Dates Next Due COVID-19 (Pre-11/28) Chandni Vaccine, [id number], P F 05/07/2020 Influenza High-Dose Quadrivalent Preservative Fr ee IM 10/15/2020 Tdap 05/11/2011 Family History Medical History Relation Comments Colon cancer Father Breast cancer Maternal Aunt Relation Status Comments Father Maternal Aunt Social History Tobacco Use Types Packs/Day Years Used Date Smoking Tobacco: Former Cigarettes 0.5 10 Smokeless Tobacco: Never Tobacco Cessation:Counseling Given: No Comments:quit 30 yrs ago Alcohol Use Standard Drinks/Week Comments Not Currently 0 (1 standard drink = 0.6 oz pur e alcohol) Education Answer Date Recorded Are you interested in more education? Not on devin e 06/03/2022 Are you concerned about learning? Not on file 06/03/2022 No 06/03/2022 No 06/03/2022 Digital Access Answer Date Recorded No 07/05/2022 No 07/05/2022 Reliable internet access at home? Not on file 07/05/2022 Device with a working camera? Not on file Comments No Sex and Gender Information Value Date Recorded Sex Assigned at Female 06/11/2018 2:26 PM EDT Legal Sex Female 8:12 AM EDT Gender Identity Female 06/11/2018 2:26 PM EDT Sexual Orientation Lesbian or Lopez 06/19/2018 5: 11 PM EDT Last Filed Vital Signs Vital Sign Reading Time Taken Comments Blood Pressure 118/72 10/06/2021 6:40 AM EDT Pulse 88 10/06/2021 6:38 AM EDT Temperature 36.9 C (98.4 F) 10/06/2021 6:38 AM EDT Respiratory Rate 18 10/06/2021 6:38 AM EDT Oxygen Saturation 96% 10/06/2021 6:38 AM EDT Inhaled Oxygen Concentration - - Weight 78.9 kg (174 lb) 07/20/2020 8:40 AM EDT Height 160 cm (5' 3 ) 07/20/2020 8:40 AM EDT Body Mass Index 30.82 07/20/2020 8:40 AM EDT Plan of Treatment Health Maintenance Due Date Last Done Comments BLOOD PRESSURE 1953 SMOKING Hx and SMOKELESS TOBACCO SCREENING 1966 COLOGUARD 1998 FIT TEST 1998 FOBT 1998 SIGMOIDOSCOPY 1998 VIRTUAL COLONOSCOPY 1998 PNEUMOCOCCAL VACCINES (50+ years) (1 of 1 - PCV) 04/23/2003 ZOSTER VACCINES (1 of 2) 04/23/2003 RSV VACCINE (1 - Risk 60-74 years 1-dose series) 2013 OSTEOPOROSIS SCREENING INITIAL (ONE-TIME) 2018 MAMMOGRAM 07/16/2020 07/16/2018, 03/04/2016 DEPRESSION SCREENING 08/20/2020 08/21/2019 Adult Td,Tdap Booster 05/10/2021 05/11/2011 COLONOSCOPY 03/03/2022 03/03/2017 COLORECTAL CANCER SCREENING 03/03/2022 LIPID PANEL 08/30/2023 08/29/2018 CREATININE LEVEL 08/20/2024 08/21/2023, 01/2024, 10/06/2021, Additional history exists INFLUENZA VACCINE (#1) 2024 10/15/2020 COVID-19 VACCINE ( - season) 2024 12/14/2020, 05/07/2020 HEPATITIS C SCREENING Completed 08/30/2019 HEPATITIS A VACCINES Aged Out No long er eligible based on patient's age to complete this topic HIB VACCINES Aged Out No longer eligi ble based on patient's age to complete this topic MENINGOCOCCAL VACCINES (ACWY) Aged Out No longer eligible based on patient's age to complete this topic MENINGOCOCCAL VACCINES (B) Aged Out N o longer eligible based on patient's age to complete this topic Medical Devices Not on file Procedures Procedure Name Priority Date/Time Associated Diagnosis Comments CT THORACIC SPINE WITHOUT CONTRAST Routine 08/16/2024 10:07 AM EDT Pathological fracture, other site, initial encounter for fracture COMPREHENSIVE METABOLIC PANEL Routine 08/21/2023 9:06 AM EDT Hypokalemia Syncope, unspecified syncope type HEPATITIS C ANTIBODY, QUALITATIVE Routine 08/30/2019 10:08 AM EDT Encounter for hepatitis C screening test for low risk patient LIPID PANEL Routine 08/29/2018 5:36 AM EDT BI MAMMOGRAM SCREENING WITH TOMOSYNTHESIS WITH CAD (BILATERAL) Routine 07/16/2018 10:43 AM EDT Breast cancer screening HM COLONOSCOPY FOR RESULT ENTRY ONLY Routine 03/03/2017 from Last 3 Months or Most Recently Relevant to Health Maintenance Results * CT THORACIC SPINE WITHOUT CONTRAST (08/16/2024 10:07 AM EDT) Anatomical Region Laterality Modality T-spine Computed Tomogra phy 08/19/2024 1:05 PM EDT Impressions 08/19/2024 1:10 PM EDT Chronic-appearing T12 compression fracture. No acute fracture. Narrative 08/19/2024 1:[address] THORACIC SPINE WITHOUT CONTRAST Referring clinician's provided indication for this examination in Epic: Outside Radiology Order; fracture TECHNIQUE: Multidetector-row CT of the thoracic spine was performed without intravenous contrast using tailored dose modulation techniques. Images were reconstructed in the axial, coronal, and sagittal planes. COMPARISON: None FINDINGS: Vertebrae: There is a chronic-appearing superior endplate compression fracture of the T12 vertebral body with tendon 50% height loss. No acute fracture. Discs and Endplates: Normal disc heights and endplates. Facet joints: Normal alignment. Soft Tissue: No prevertebral soft tissue edema. Other: Biapical pleural-parenchymal scarring. Atherosclerotic calcification of the aorta. Procedure Note Kusum Butt MD - 08/19/2024 CT THORACIC SPINE WITHOUT CONTRAST Referring clinician's provided indication for this examination in Epic:Outside Radiology Order; fracture TECHNIQUE: Multidetector-row CT of the thoracic spine was performedwithout intravenous contrast using tailored dose modulation techniques.Images were reconstructed in the axial, coronal, and sagittal planes. COMPARISON: None FINDINGS: Vertebrae: There is a chronic-appearing superior endplate compressionfracture of the T12 vertebral body with tendon 50% height loss. No acutefracture. Discs and Endplates: Normal disc heights and endplates. Facet joints: Normal alignment. Soft Tissue: No prevertebral soft tissue edema. Other: Biapical pleural-parenchymal scarring. Atheroscleroticcalcification of the aorta. IMPRESSION: Chronic-appearing T12 compression fracture. No acute fracture. Lillian Engel POLYMERIZATION KETTLE OPERATOR IMG CT XSPECIALTY ORDER JOSÉ LUIS Final Result * (ABNORMAL) Comprehensive metabolic panel (08/21/2023 9:06 AM EDT) SODIUM 133 133 - 146 mmol/L [facility] POTASSIUM 4.4 3.3 - 5.1 mmol/L [facility] CHLORIDE 98 96 - 108 mmol/L [facility] CO2 26 21 - 35 mmol/L [facility] BUN 11 6 - 19 mg/dL [facility] CREATININE 0.50 0.5 - 1.5 mg/dL [facility] GLUCOSE 133(H) 70 - 99 mg/dL [facility] ALBUMIN 3.3(L) 3.9 - 4.8 g/dL [facility] TOTAL PROTEIN 5.8(L) 6.5 - 8.0 g/dL [facility] CALCIUM 8.7 8.4 - 10.3 mg/dL [facility] ALKALINE PHOSPHATASE 50 39 - 117 U/L [facility] TOTAL BILIRUBIN <0.2 0.0 - 1.2 mg/dL [facility] AST 14 0 - 37 U/L [facility] ALT 13 0 - 40 U/L [facility] GLOBULIN 2.5 1 - 4.8 g/dL [facility] EGFR 101 >59 mL/min/1.7 3m2 [facility] Comment:Estimated glomerular filtration rate calculated using the CKD-EPI refit equation. ANION GAP 13 10 - 20 mmol/L [facility] Blood 08/21/2023 9:06 AM EDT 08/21/2023 12:33 PM EDT us Selina Arredondo MD LAB BLOOD ORDERABLES Ruth l Result Performing Organization Address [facility]/ZIP Co de Phone Number [address] [address] * Hepatitis C antibody, qualitative (08/30/2019 10:08 AM EDT) HCV NON-REACTIV E NON-REACTI VE [facility] Blood 08/30/2019 10:0 8 AM EDT 08/30/2019 10:33 AM EDT us Roney Tracey MD LAB BLOOD ORDERABLES Final Resul t Performing Organization Address [facility] Co de Phone Number [address] [address] * (ABNORMAL) Lipid panel (08/29/2018 5:36 AM EDT) HDL 45 mg/dL [facility] Comment: Interpretation <40 mg/dL: Low HDL cholesterol (major risk factor for CHD) Greater than or equal to 60 mg/dL: High HDL cholesterol ( negative risk factor for CHD) HDL - cholesterol is affected by a number of factors, e.g. smoking, excerise, hormones, sex and age. CHOLESTEROL 132 0 - 240 mg/dL [facility] TRIGLYCERIDES 96 30 - 160 mg/dL [facility] LDL 68 50 - 129 mg/dL [facility] Comment: LDL levels in terms of risk for coronary heart disease: <100 mg/dL: Optimal 100-129 mg/dL: Near or above optimal 130-159 mg/dL: Borderline high 160-189 mg/dL: High >190 mg/dL: Very High CARDIAC RISK RATIO 2.9(L) 3.3 - 4.4 C [facility] Blood 08/29/2018 5:36 AM EDT 08/29/2018 6:08 AM EDT us Richar Cortes MD LAB BLOOD ORDERABLES Fin al Result Performing Organization Address [facility] Co de Phone Number [address] [address] * BI MAMMOGRAM SCREENING WITH TOMOSYNTHESIS WITH CAD (BILATERAL) (07/16/2018 10:43 AM EDT) Anatomical Region Laterality Modality Breast Left, Breast Right, Breast Bilateral Bila teral Mammography 07/23/2018 10:4 8 AM EDT Addenda Addendum by Kee Strauss MD on 07/23/2018 11:08 AM EDT Please note that comparison is made with the most recent outside study of 03/04/2016. Impressions 07/23/2018 10:51 AM EDT No mammographic evidence of malignancy. Routine annual screening mammography recommended. BI-RADS CATEGORY: 1 - Negative. DENSITY: There are scattered fibroglandular densities. POS - CDHMAMA Narrative 07/23/2018 10:51 AM EDT Standard digital full-field 2-D C view and two-plane tomographic imaging was performed and compared with multiple prior studies, most recently an outside study dated 10/28/2013, with utilization of computer-aided detection. The breasts are composed of scattered fibroglandular densities. The stromal markings are essentially unchanged in overall appearance and distribution. No dominant spiculated mass, suspicious clustered microcalcifications, or focal zone of pathologic skin thickening or retraction are noted to have arisen in the interim. Procedure Note Kee Strauss MD - 07/23/2018 Standard digital full-field 2-D C view and two-plane tomographic imagingwas performed and compared with multiple prior studies, most recently anoutside study dated 10/28/2013, with utilization of computer-aideddetection. The breasts are composed of scattered fibroglandular densities. Thestromal markings are essentially unchanged in overall appearance anddistribution. No dominant spiculated mass, suspicious clusteredmicrocalcifications, or focal zone of pathologic skin thickening orretraction are noted to have arisen in the interim. IMPRESSION: No mammographic evidence of malignancy. Routine annual screeningmammography recommended. BI-RADS CATEGORY: 1 - Negative. DENSITY: There are scattered fibroglandular densities. POS - CDHMAMA Salvador Khoury MD IMG MG EXAMS Edited R esult - Final * COLONOSCOPY FOR RESULT ENTRY ONLY (03/03/2017) Colonoscopy tubular adenoma Historical Provider HEALTH MAINTENANCE Final Result from Last 3 Months or Most Recently Relevant to Health Maintenance Insurance [facility] SAF[employer] NET [place] [address] [facility] FULL Member Subscriber Plan / Payer (Ef fective 2023-Present) Name:Thomas Dyer Relation to Subscriber:Self Name:Thomas Dyer Payer ID:Not on file Group ID:Not on file Type:Medicaid Address: [address] MEDICARE REPLACEMENT [facility] FULL Member Subscriber Plan / Payer (Ef fective 2023-Present) Name:Thomas Dyer Relation to Subscriber:Self Name:Thomas Dyer Payer ID:Not on file Group ID:Not on file Type:Medicaid [address]: [address] MED[address] REPLACEMENT [facility] S[employer] NET FULL MEDICARE REPLACEMENT [facility] FULL MEDICARE REPLACEMENT [facility] NET [place] [address] [place] [id number] , [place] [id number] , [place] [id number] , [place] [id number] , [place] [id number] [place] [id number] [place] [id number] Advance Directives For more information, please contact: [phone] (9AM - 5PM [place], Monday-Monday) * Full Code (Presumed) (Latest Code Status on File) Date Activated Date Inactivated Comments 08/28/2018 4:47 PM 08/29/2018 2:41 PM Care Teams Anesthesiologist Attending Relationship Specialty Start Date End Date Rakan Mckinney MD [address] [place] [phone] PCP - General Internal Medicine 08/12/24 Additional Source Comments The information contained in this document represents components of the legal health record. It is not the complete legal health record.[facility]
--- OUTSIDE RECORDS SUMMARY | 2024-10-15 12:29 | XMS_ITS | Encounter Summary ---
Author Organization [facility] Address [address] [facility] [address] [place] [address] Phone Care Team Providers Care Refractory Manager Name Role Phone Marta Chauhan MD Primary Care Provider [phone] Marta Chauhan MD Primary Care Provider [phone] Salvador Khoury MD Primary Care Provider + Salvador Khoury MD Primary Care Provider + Roney Tracey MD Primary Care Provider [phone] Roney Tracey MD Primary Care Provider [phone] Yandel Man MD Primary Care Provider Rakan Mckinney MD Primary Care Provid er Encounter Details Date Type Department Care Team (Late st Contact Info) Description 09/26/2017 Ancillary Orders Virtual Department [address] [place] [address] Sandra Rock, PA [address] [place] [address] Spinal stenosis, lumbar region with neurogenic claudication Social History Tobacco Use Types Packs/Day Years [...] documented as of this encounter Results * MRI LUMBAR SPINE (NEURO) WITHOUT CONTRAST (10/04/2017 10:07 AM EDT) Anatomical Region Laterality Modality L-spine Magnetic Resonan ce 10/04/2017 10:1 5 AM EDT Impressions 10/04/2017 10:24 AM EDT Small right foraminal disc protrusion versus disc bulge at the L2-3 level, right L3-4 foraminal disc bulge, and left L5-S1 neural foraminal narrowing without associated mass effect upon the exiting nerve roots although clinical correlation regarding any evidence of radiculopathy at these levels is recommended. Mild bilateral recess stenosis at L4-5. No significant central canal stenosis apparent. POS [id number] Narrative 10/04/2017 10:24 AM EDT COMPARISON:None TECHNIQUE: Exam performed on a 1.5 Isabella high-field MRI scanner. Sagittal T1, T2 and STIR, axial T1 and T2 sequences were obtained. FINDINGS: No comparison radiograph are available. This dictation is predicated upon the assumption of five lumbar vertebral bodies. A left convex scoliotic curvatures present. On the sagittal sequences no focal disc protrusion or central canal stenosis are suggested at the T11-12 or T12-L1 levels. L1-2: There is ventral spondylosis. No focal disc protrusion, central canal stenosis, or significant neural foraminal compromise are demonstrated. There is mild to moderate degenerative facet arthropathy. L2-3: There is a small right paramedian/foraminal disc protrusion versus prominent disc bulge without mass effect upon the exiting L2 nerve root. No central canal stenosis or left neural foraminal compromise present. Mild ventral spondylosis and degenerative facet arthropathy. L3-4: There is right foraminal disc bulge impinging upon but not clearly compressing the exiting L3 nerve root. Left neural foramen is patent.. No central canal stenosis present. Mild degenerative facet arthropathy. L4-5: No focal disc protrusion, central canal stenosis, or significant neural foraminal compromise present. Hypertrophic facet arthropathy and ligamentum flavum prominence contribute to bilateral recess stenosis. L5-S1: No focal disc protrusion, central canal stenosis, or right neural foraminal compromise. There is slight left neural foraminal narrowing due to vertebral body endplate spurring without gross mass effect upon the exiting L5 nerve root. No significant abnormality of vertebral body marrow signal is noted. Visualized portions of the conus are unremarkable. No paraspinal soft tissue mass apparent. Small right renal cortical cysts are demonstrated. Procedure Note Kee Strauss MD - 10/04/2017 COMPARISON:None TECHNIQUE: Exam performed on a 1.5 Isabella high-field MRI scanner. SagittalT1, T2 and STIR, axial T1 and T2 sequences were obtained. FINDINGS: No comparison radiograph are available. This dictation is predicated uponthe assumption of five lumbar vertebral bodies. A left convex scoliotic curvatures present. On the sagittal sequences nofocal disc protrusion or central canal stenosis are suggested at [id number] or T12-L1 levels. L1-2: There is ventral spondylosis. No focal disc protrusion, centralcanal stenosis, or significant neural foraminal compromise aredemonstrated. There is mild to moderate degenerative facet arthropathy. L2-3: There is a small right paramedian/foraminal disc protrusion versusprominent disc bulge without mass effect upon the exiting L2 nerve root.No central canal stenosis or left neural foraminal compromise present.Mild ventral spondylosis and degenerative facet arthropathy. L3-4: There is right foraminal disc bulge impinging upon but not clearlycompressing the exiting L3 nerve root. Left neural foramen is patent..No central canal stenosis present. Mild degenerative facet arthropathy. L4-5: No focal disc protrusion, central canal stenosis, or significantneural foraminal compromise present. Hypertrophic facet arthropathy andligamentum flavum prominence contribute to bilateral recess stenosis. L5-S1: No focal disc protrusion, central canal stenosis, or right neuralforaminal compromise. There is slight left neural foraminal narrowing dueto vertebral body endplate spurring without gross mass effect upon theexiting L5 nerve root. No significant abnormality of vertebral body marrow signal is noted.Visualized portions of the conus are unremarkable. No paraspinal softtissue mass apparent. Small right renal cortical cysts aredemonstrated. IMPRESSION: Small right foraminal disc protrusion versus disc bulge at the L2-3 level,right L3-4 foraminal disc bulge, and left L5-S1 neural foraminal narrowingwithout associated mass effect upon the exiting nerve roots althoughclinical correlation regarding any evidence of radiculopathy at theselevels is recommended. Mild bilateral recess stenosis at L4-5. Nosignificant central canal stenosis apparent. POS [id number] Sandra BUSCH IMG MR XSPECIALTY Final Result documented in this encounter Visit Diagnoses Diagnosis Spinal stenosis, lumbar region with neurogenic claudication Spinal stenosis, lumbar region with neurogenic claudication documented in this encounter Additional Health Concerns Infection Onset Date Last Indicated Resolved Time CoV-Risk 10/06/2021 10/06/2021 10/17/2021 1:21 AM EDT documented as of this encounter Care Teams Refractory Manager Relationship Specialty Start Date End Date Marta Chauhan MD [address] [address] [email or web address] PCP - General 10/04/17 06/05/18 Marta Chauhan MD [address] [address] [email or web address] PCP - General Internal Medicine 09/26/17 10/03/17 Salvador Khoury MD [address] [address] [email or web address] PCP - General Family Medicine 06/06/1801/06/19 Salvador Khoury MD [address] [address] PCP - General Family Medicine 01/07/1908/06 Roney Tracey MD [address] [place] [address] [email or web address] PCP - General Internal Medicine 08/22/19 07/19/20 Roney Tracey MD [address] [place] [address] [email or web address] PCP - General Internal Medicine 07/20/20 10/03/21 Yandel Man MD [address] [place] [address] PCP - General Internal Medicine 10/04/21 08/11/24 Rakan Mckinney MD [address] [place] [phone] PCP - General Internal Medicine 08/12/24 documented as of this encounter Additional Source Comments The information contained in this document represents components of the legal health record. It is not the complete legal health record.[facility]
--- OUTSIDE RECORDS SUMMARY | 2024-10-15 12:29 | XMS_ITS | Encounter Summary ---
Author Organization [facility] Address [address] [facility] [address] [place] [address] Phone Care Team Providers Care Per Assessment Nurse Name Role Phone Yandel Man MD Primary Care Provider Rakan Mckinney MD Primary Care Provid er Reason for Referral * MRI/CAT Scan - Closed Specialty Diagnoses / Procedures Referred By Contac t Referred To Contact Radiology Diagnoses Pathological fracture, other site, initial encounter for fracture Procedures CT Thoracic Spine Lillian Engel NP [address] [place] [address] Phone: tel: fax: [email or web address] Referral ID Status Reason Start Date Expiration Date Visits Re quested Visits Authorized [id number] Closed 08/05/2024 08/05/2025 1 1 Encounter Details Date Type Department Care Team (Late st Contact Info) Description 08/05/2024 Transcribe Orders Virtual Department 30 [place] [address] Lillian Engel NP [address] [place] [address] [email or web address] Pathological fracture, other site, initial encounter for fracture (Primary Dx) Social History Tobacco Use Types Packs/Day Years [...] documented as of this encounter Results * CT THORACIC SPINE WITHOUT CONTRAST [...] compression fracture. No acute fracture. Lillian Engel LOGISTICS LOSS PREVENTION MANAGER IMG CT XSPECIALTY ORDER JOSÉ LUIS Final Result documented in this encounter Visit Diagnoses Diagnosis Pathological fracture, other site, initial encounter for fracture- Primary Pathological fracture, other site, initial encounter for fracture documented in this encounter Additional Health Concerns Assessment Noted Time PHQ-2 Depression Total Score: 0 08/21/19 20 8:21 AM EDT documented as of this encounter Care Teams Per Assessment Nurse Relationship Specialty Start Date End Date Yandel Man MD [address] [place] [phone] PCP - General Internal Medicine 10/04/21 08/11/24 Rakan Mckinney MD [address] [place] [phone] PCP - General Internal Medicine 08/12/24 documented as of this encounter Additional Source Comments The information contained in this document represents components of the legal health record. It is not the complete legal health record.[facility]
--- OUTSIDE RECORDS SUMMARY | 2024-10-15 12:29 | XMS_ITS | Encounter Summary ---
Author Organization [facility] Address [address] [facility] [address] [place] [address] Phone Care Team Providers Care Auto Brake Mechanic Name Role Phone Salvador Khoury MD Primary Care Provider + Salvador Khoury MD Primary Care Provider + Roney Tracey MD Primary Care Provider [phone] Roney Tracey MD Primary Care Provider [phone] Yandel Man MD Primary Care Provider Rakan Mckinney MD Primary Care Provid er Encounter Details Date Type Department Care Team (Late st Contact Info) Description 09/10/2018 Ancillary Orders [address] [address] Tiara Ruelas MD [address] [place] [address] Orthopedics & Sports Medicine, [place] [address] [email or web address] Hip pain, right Social History Tobacco Use Types Packs/Day Years [...] documented as of this encounter Visit Diagnoses Diagnosis Hip pain, right Pain in joint, pelvic region and thigh documented in this encounter Additional Health Concerns Infection Onset Date Last Indicated Resolved Time CoV-Risk 10/06/2021 10/06/2021 10/17/2021 1:21 AM EDT documented as of this encounter Care Teams Auto Brake Mechanic Relationship Specialty Start Date End Date Salvador Khoury MD [email or web address] PCP - General Family Medicine 06/06/1801/06/19 Salvador Khoury MD [email or web address] PCP - General Family Medicine 01/07/1908/06 Roney Tracey MD [address] [place] [address] [email or web address] PCP - General Internal Medicine 08/22/19 07/19/20 Roney Tracey MD [address] [place] [address] [email or web address] PCP - General Internal Medicine 07/20/20 10/03/21 Yandel Man MD [address] [place] [phone] PCP - General Internal Medicine 10/04/21 08/11/24 Rakan Mckinney MD [address] [place] [phone] PCP - General Internal Medicine 08/12/24 documented as of this encounter Additional Source Comments The information contained in this document represents components of the legal health record. It is not the complete legal health record.[facility]
--- OUTSIDE RECORDS SUMMARY | 2024-10-15 12:29 | XMS_ITS | Encounter Summary ---
Author Organization [facility] Address [address] [facility] [address] [place] [address] Phone Care Team Providers Care Link Trainer Name Role Phone Yandel Man MD Primary Care Provider Rakan Mckinney MD Primary Care Provid er Encounter Details Date Type Department Care Team (Latest Contact Info) Description 03/25/2022 Transcribe Orders Virtual Department 30 [place] [address] Yumiko Chatman NP [address] [place] [address] [email or web address] collapse Social History Tobacco Use Types Packs/Day Years [...] as of this encounter Visit Diagnoses Diagnosis Syncope and collapse documented in this encounter Additional Health Concerns Assessment Noted Time PHQ-2 Depression Total Score: 0 08/21/19 20 8:21 AM EDT documented as of this encounter Care Teams Link Trainer Relationship Specialty Start Date End Date Yandel Man MD [address] [place] [phone] PCP - General Internal Medicine 10/04/21 08/11/24 Rakan Mckinney MD [address] [place] [phone] PCP - General Internal Medicine 08/12/24 documented as of this encounter Additional Source Comments The information contained in this document represents components of the legal health record. It is not the complete legal health record.[facility]
--- OUTSIDE RECORDS SUMMARY | 2024-10-15 12:29 | XMS_ITS | Encounter Summary ---
Author Organization [facility] Address [address] [facility] [address] [place] [address] Phone Care Team Providers Care Pilot Supervisor Name Role Phone Yandel Man MD Primary Care Provider Rakan Mckinney MD Primary Care Provid er Encounter Details Date Type Department Care Team (Late st Contact Info) Description 08/05/2024 Procedure [facility], Ct Scan - [address] [address] Social History Tobacco Use Types Packs/Day Years [...] filedocumented in this encounter Additional Health Concerns Assessment Noted Time PHQ-2 Depression Total Score: 0 08/21/19 20 8:21 AM EDT documented as of this encounter Care Teams Pilot Supervisor Relationship Specialty Start Date End Date Yandel Man MD [address] [place] [address] PCP - General Internal Medicine 10/04/21 08/11/24 Rakan Mckinney MD [address] [place] [phone] PCP - General Internal Medicine 08/12/24 documented as of this encounter Additional Source Comments The information contained in this document represents components of the legal health record. It is not the complete legal health record.[facility]
--- OUTSIDE RECORDS SUMMARY | 2024-10-15 12:29 | XMS_ITS | Encounter Summary ---
Author Organization [facility] Address [address] [facility] [address] [place] [address] Phone Care Team Providers Care Orchid Grower Name Role Phone Marta Chauhan MD Primary Care Provider [phone] Salvador Khoury MD Primary Care Provider + Salvador Khoury MD Primary Care Provider + Roney Tracey MD Primary Care Provider [phone] Roney Tracey MD Primary Care Provider [phone] Yandel Man MD Primary Care Provider Rakan Mckinney MD Primary Care Provid er Reason for Referral * MRI/CAT Scan - Closed Specialty Diagnoses / Procedures Referred By Jarrod alvarez Referred To Contact Radiology Diagnoses Spontaneous rupture of flexor tendon of left thigh Procedures MRI Femur (Left) Marta Chauhan MD [address] [address] Phone: tel: fax: mailto:[email or web address] Referral ID Status Reason Start Date Expiration Date Visits Re quested Visits Authorized [id number] Closed 04/20/2018 04/20/2019 1 1 Encounter Details Date Type Department Care Team (Late st Contact Info) Description 04/20/2018 Ancillary Orders Virtual Department 30 [place] [address] Marta Chauhan MD [address] [address] [phone] (work) [email or web address] Spontaneous rupture of flexor tendon of left thigh Social History Tobacco Use Types Packs/Day Years [...] as of this encounter Results * MRI FEMUR WITHOUT CONTRAST (LEFT) (04/27/2018 11:25 AM EDT) Anatomical Region Laterality Modality Thigh Left Magnetic Resonan ce 04/27/2018 12:0 6 PM EDT Impressions 04/27/2018 12:21 PM EDT Probable trochanteric bursitis. Suspect benign lymphedema in the subcutaneous fat of the posterior proximal thigh. No muscle, tendon or bony pathology. [id number] Narrative 04/27/2018 12:21 PM EDT TECHNIQUE: 1.5 Isabella scanner. Multiplanar/multisequence exam using 2 [id number]-dr-ynta to cover the entire thigh. No IV contrast. No comparison FINDINGS: Very minimal fluid lateral to the left greater trochanter suggests trochanteric bursitis. Mild edema in the subcutaneous fat of the proximal third of the posterior thigh at the level of the lower edge of the gluteal muscles probably benign lymphedema rather than cellulitis. No focal fluid collections or masses in this area. No significant abnormal signal is seen in the musculature or tendons posteriorly or elsewhere. No abnormal marrow signal to suggest bony trauma, tumor or infection. There is an area of metallic artifact in the left inguinal region presumably from a vascular stent in the iliac. Procedure Note Salvador Roman MD - 04/27/2018 TECHNIQUE: 1.5 Isabella scanner. Multiplanar/multisequence exam using 2 [id number]-pj-ejfu to cover the entirethigh. No IV contrast. No comparison FINDINGS: Very minimal fluid lateral to the left greater trochanter suggeststrochanteric bursitis. Mild edema in the subcutaneous fat of the proximal third of the posteriorthigh at the level of the lower edge of the gluteal muscles probablybenign lymphedema rather than cellulitis. No focal fluid collections ormasses in this area. No significant abnormal signal is seen in the musculature or tendonsposteriorly or elsewhere. No abnormal marrow signal to suggest bony trauma, tumor or infection. There is an area of metallic artifact in the left inguinal regionpresumably from a vascular stent in the iliac. IMPRESSION: Probable trochanteric bursitis. Suspect benign lymphedema in thesubcutaneous fat of the posterior proximal thigh. No muscle, tendon orbony pathology. [id number] Marta Chauhan MD IM MR EXTREMITY Final Result documented in this encounter Visit Diagnoses Diagnosis Spontaneous rupture of flexor tendon of left thigh Spontaneous rupture of flexor tendon of left thigh documented in this encounter Additional Health Concerns Infection Onset Date Last Indicated Resolved Time CoV-Risk 10/06/2021 10/06/2021 10/17/2021 1:21 AM EDT documented as of this encounter Care Teams Orchid Grower Relationship Specialty Start Date End Date Marta Chauhan MD [address] [address] [email or web address] PCP - General 10/04/17 06/05/18 Salvador Khoury MD [address] [address] [email or web address] PCP - General Family Medicine 06/06/1801/06/19 Salvador Khoury MD [address] [address] [email or web address] PCP - General Family Medicine 01/07/1908/06 Roney Tracey MD [address] [place] [address] [email or web address] PCP - General Internal Medicine 08/22/19 07/19/20 Roney Tracey MD [address] [place] [address] [email or web address] PCP - General Internal Medicine 07/20/20 10/03/21 Yandel Man MD [address] [place] [phone] PCP - General Internal Medicine 10/04/21 08/11/24 Rakan Mckinney MD [address] [place] [phone] PCP - General Internal Medicine 08/12/24 documented as of this encounter Additional Source Comments The information contained in this document represents components of the legal health record. It is not the complete legal health record.[facility]
== END 2024-10-15 11:17 | disposition home or self-care (01) ==
LOC: HO.PMC 10:36
PROVIDERS: PCP Internal Medicine; Visit Provider Nurse Practitioner Family
DX: S22.000A Wedge compression fracture of unspecified thoracic vertebra, initial encounter for closed fracture (principal); M54.9 Dorsalgia, unspecified; G89.29 Other chronic pain; M47.815 Spondylosis without myelopathy or radiculopathy, thoracolumbar region
CPT/HCPCS: 99204

== ENCOUNTER → 2024-10-15 10:35 | Outpatient (BNVA) | payer MEDICARE, SELFPAY | PROVIDERS: PCP Internal Medicine; Visit Provider Nurse Practitioner Family | DX: M54.9 Dorsalgia, unspecified (principal); G89.29 Other chronic pain; S22.000D Wedge compression fracture of unspecified thoracic vertebra, subsequent encounter for fracture with routine healing; M47.815 Spondylosis without myelopathy or radiculopathy, thoracolumbar region | CPT/HCPCS: 99202 ==

== ENCOUNTER 2024-12-10 06:14 | Outpatient (REF) | payer MEDICARE, SELFPAY ==
--- NOTE | ~2024-12-10 | FL_ITS ---
EXAMINATION: FL GUIDANCE ONLY HISTORY: M47.815 - Spondylosis without myelopathy or radiculopathy, thoracolumbar... COMPARISON: None available. TECHNIQUE: Fluoroscopy time: 42 seconds. Cumulative Dose: 11.60 mGy. DAP: 2406.60 mGycm2 Images: 13. FINDINGS: Fluoroscopic spot films of the lumbar spine in the AP projection demonstrate needles and contrast material in the regions of the bilateral L2-3, L3-4, and L4-5 facet joints. FL/FL guidance in treatment room IMPRESSION: Fluoroscopy during procedure. Please see procedure report for additional information. Electronically signed by: Calixto Abdalla MD 12/10/2024 03:42 PM EST
--- OUTSIDE RECORDS SUMMARY | 2024-12-10 06:17 | XMS_ITS | Encounter Summary ---
Author Organization [facility] Address [address] [facility] [address] [place] [address] Phone Care Team Providers Care Case Management Social Worker Name Role Phone Salvador Khoury MD Primary Care Provider + Salvador Khoury MD Primary Care Provider + Roney Tracey MD Primary Care Provider Roney Tracey MD Primary Care Provider Yandel Man MD Primary Care Provider Raakn Mckinney MD Primary Care Provid er Encounter Details Date Type Department Care Team (Late st Contact Info) Description 09/10/2018 Ancillary Orders [address] [place] [address] [address] Tiara Ruelas MD [address] [place] [address] Orthopedics & Sports Medicine, [place] [address] [email or web address] Hip pain, right Social History Tobacco Use [...] as of this encounter Plan of Treatment Upcoming Encounters Date Type Department Care Team (Late st Contact Info) Description 01/27/2025 12:30 PM EST Office Visit [facility] [address] [place] [address] Faiza Mckeon, SALES SERVICE REPRESENTATIVE [address] [address] [email or web address] documented as of this encounter Visit Diagnoses Diagnosis Hip pain, right Pain in joint, pelvic region and thigh documented in this encounter Additional Health Concerns Infection Onset Date Last Indicated Resolved Time CoV-Risk 10/06/2021 10/06/2021 10/17/2021 1:21 AM EDT documented as of this encounter Care Teams Case Management Social Worker Relationship Specialty Start Date End Date Salvador Khoury MD [email or web address] PCP - General Family Medicine 06/06/1801/06/19 Salvador Khoury MD [email or web address] PCP - General Family Medicine 01/07/1908/06 Roney Tracey MD [address] [place] [address] [email or web address] PCP - General Internal Medicine 08/22/19 07/19/20 Roney Tracey MD [address] [place] [address] [email or web address] PCP - General Internal Medicine 07/20/20 10/03/21 Yandel Man MD [address] [place] [phone] PCP - General Internal Medicine 10/04/21 08/11/24 Rakan Mckinney MD [address] [place] [phone] PCP - General Internal Medicine 08/12/24 documented as of this encounter Additional Source Comments The information contained in this document represents components of the legal health record. It is not the complete legal health record.[facility]
--- OUTSIDE RECORDS SUMMARY | 2024-12-10 06:17 | XMS_ITS | Data Portability ---
Author Organization [place] [facility] Address [address] [place] [address] Care Team Providers Care Reimbursement Consultant Name Role Phone [facility] Referring Provider Assessment Encounter Date Assessment Date Assessment LastModified by Organization Details LastModified Time 01/20/2022 01/20/2022 This 66-year-old female has a history of chronic back pain for several years and the pain has been worse for several day. Her usual medications have not been helpful. I ordered Toradol 30 mg IM and she will follow-up with her PCP. The patient agreed with this plan. [email or web address] Not available 01/20/2022 12:08:17 02/14/2022 02/14/2022 66 YOF with hx of TBI recent fall with head strike. Seen at ED had CT head neg for traumatic injury diagnosed with possible concusssion now with hernandez, neck pain, spots in vision, and noting speech abnormalities and nausea. Exam without focal neuro deficict but discusssed with patient this is likely post concussive syndrome but with speach change and constellation of symptoms she should be reevaluated. Pt declines currently but will go if symptoms continue Pt given zofran for some nausea currently [email or web address] Not available 02/14/2022 17:18:41 06/15/2022 06/15/2022 Ms. Thomas Dyer is a 67yoF w/ a PmHx of peripheral neuropathy, HTN, who is seen today for caregiver fatigue and stress. Ms. Dyer reports that her partner has white matter brain disease and she has had a difficult few past weeks, which has added a significant amount of stress to Ms. Dyer. She states that she called for an instED evaluation today so that she can have help managing her stress and finding ways to get help at home. While the triage note endorses new left sided tingling, Ms. Dyer reports that she has her baseline neuropathy symptoms that are not worse. She also endorses some increased nebulizer use with occasional yellow mucous production, but denies fevers, congestion, sore throat or any other concerns. VSS. Cushion Builder on site reports no acute distress, lungs clear to auscultation throughout. POC COVID and flu negative. The primary hope for this visit per lock master when speaking with Ms. Dyer is to identify resources for help at home and for stress management. She has a PCP appointment coming up in the next week, and encouraged her to bring these complaints to her PCP. She was given the phone number to the family caregiver support program by the [facility] and encouraged to call. Otherwise, physical complaints seem at baseline. Episodes of cough and dyspnea seem mild and subacute, without evidence today of acute exacerbation or infection. Primary team, Ms. Dyer is experiencing significant caregiver fatigue and would benefit from a discussion of resources and mitigation strategies. [email or web address] Not available 06/15/2022 13:34:38 02/28/2023 02/28/2023 Ms. Thomas Dyer is a 67yoF w/ a PmHx of peripheral neuropathy and HTN who is seen today for further evaluation after a fall. The visit was requested by Ms. Dyer's , who has a white matter brain disease and is struggling to sequence events. The fall that Ms. Dyer's called about occurred in 2020 and Ms. Dyer has had no recent falls of concern. VSS. Cushion Builder on site reports no distress. On conversation with lock master Ms. Dyer reported a mild cough and was hoping for COVID/flu testing, which was performed and negative. She otherwise declines needing additional treatment and has no other concerns. [email or web address] Not available 02/28/2023 12:59:57 Plan of Treatment Reminders Order Date Submit Date Provider Last Modified By Organization Details Last Modified Time Details Appointments None recorded. Lab None recorded. Referral None recorded. Procedures None recorded. Surgeries None recorded. Imaging None recorded. Medication Orders ondansetron 4 mg disintegrat ing tablet 2021 022 [place] [employer] [id number], [address] [facility], [place], [address], 13:58:22 ondansetron HCl (PF) 4 mg/2 mL injection solution 2021 022 [email or web address] Not available 13:58:20 Patient TargetsNo targets recorded. Patient InstructionsNo instructions recorded. Reason for Referral None Reported. Medical Equipment None Reported. Allergies Allergen ID Allergen Name Allergen Category Reaction Reaction Severity Criticality Documentation Date Start Date Code Code System Note Provider Name and Address Organization Details Recorded Time 100 erythromy claire medicatio n Not available Not available Not available 04/09/2021 4053 RxNorm Mami Oliveira MD [address] [place] [address],[address], [place], [address], [facility] 16:12:26 101 hydrochlo rothiazid e medicatio n Not available Not available Not available 04/09/2021 5487 RxNorm Mami Oliveira MD [address] [place] [address],[address], [place], [address], [facility] 2 16:12:34 102 morphine medicatio n Not available Not available Not available 04/09/2021 7052 RxNorm Not Available [facility] - production 4 03:35:29 99 codeine medicatio n Not available Not available Not available 04/09/2021 2670 RxNorm Mami Oliveira MD [address] [place] [address],[address], [place], [address], [facility] 16:12:10 Medications Name Sig Start Date Stop Date Status Note LastModified by Organization Details LastModified Time ketorolac 30 mg/mL (1 mL) injection solution Inject 1 mL as needed by intramuscul ar route. 2021 active x1 Not Available Not Available Not Avai lable potassium chloride ER 20 mEq tablet,exten ded release(part /cryst) Give total of 80mEQ 2021 active Not Available Not Available Not Avai lable ondansetron 4 mg disintegrati ng tablet Place 1 tablet twice a day by translingua l route for 3 days. 2021 active Not Available Not Available Not Avai lable ondansetron 16 mg/50 mL in 0.9 % sodium chloride intravenous piggyback Inject 4 mg by intravenous route for 1 day. 2021 active Not Available Not Available Not Avai lable Vitals Date Recorded Respiratory rate Body weight Heart rate Body height Body temperature Oxygen saturation Oxygen saturation in Arterial blood by Pulse oximetry Respiratory rate Body temperature Heart rate Body height Oxygen saturation Provider Name and Address Organization Details Last Updated DateTime 3 18 /min 14833.5 6 g 82 /min 160.02 cm 98.4 [degF] 97 % 97 % 18 /min 98.4 [degF] 82 /min 160.02 cm 97 % Not Available [facility] - production 3 13:18:20 Date Recorded Oxygen saturation in Arterial blood by Pulse oximetry Body weight Systolic And Diastolic Systolic And Diastolic Provider Name and Address Organization Details Last Updated DateTime 02/14/2022 97 % 71300.56 g 118/74 mm[Hg] 118/74 mm[Hg] Not Available [facility] - production 3 13:18:20 Date Recorded Respiratory rate Heart rate Body temperature Oxygen saturation Oxygen saturation in Arterial blood by Pulse oximetry Systolic And Diastolic Provider Name and Address Organization Details Last Updated DateTime 4 16 /min 67 /min 98.7 [degF] 98 % 98 % 122/68 mm[Hg] Not Available [facility] - production 4 12:40:32 Date Recorded Body temperature Heart rate Respiratory rate Oxygen saturation Oxygen saturation in Arterial blood by Pulse oximetry Systolic And Diastolic Provider Name and Address Organization Details Last Updated DateTime 3 99 [degF] 84 /min 18 /min 98 % 98 % 133/73 mm[Hg] Not Available [facility] - production 3 13:21:07 Date Recorded Body weight Body temperature Respiratory rate Body height Oxygen saturation Oxygen saturation in Arterial blood by Pulse oximetry Heart rate Body weight Respiratory rate Heart rate Body height Oxygen saturation Provider Name and Address Organization Details Last Updated DateTime 2 61304.5 6 g 98.1 [degF] 18 /min 160.02 cm 98 % 98 % 57 /min 72201.5 6 g 18 /min 57 /min 160.02 cm 98 % Not Available [facility] - production 2 14:33:10 Date Recorded Oxygen saturation in Arterial blood by Pulse oximetry Body temperature Systolic And Diastolic Systolic And Diastolic Provider Name and Address Organization Details Last Updated DateTime 01/13/2022 98 % 98.1 [degF] 124/67 mm[Hg] 124/67 mm[Hg] Not Available [employer] - production 2 14:33:10 Date Recorded Heart rate Oxygen saturation Oxygen saturation in Arterial blood by Pulse oximetry Respiratory rate Body temperature Systolic And Diastolic Provider Name and Address Organization Details Last Updated DateTime 2 60 /min 98 % 98 % 18 /min 97.9 [degF] 148/80 mm[Hg] Not Available [employer] [employer] 2 12:04:01 Social History None recorded. Functional Status None recorded. Mental Status None recorded. Family History Nothing Reported. Medical History No medical history recorded. Gynecological HistoryNo gynecological history recorded. Obstetrics History GPAL:G 0 P 0 0 0 0 Past Encounters Encounter ID Performer Location Encounter Start Date Encounter Closed Date Diagnosis/Indication Diagnosis SNOMED-CT Code Diagnosis ICD10 Code Diagnosis IMO Codes Diagnosis Note [id number] Merrick Fraser MD Main - [address] [address] 04/08/2021 20:21:01 09/22/2021 12:39:10 Accidental fall [id number] W19.XXXD 65yo man seen for evaluation of trauma after right leg fall. The fall occurred yesterday morning and was reportedly mechanical . She was referred for outpatient x-rays but these were not obtained for logistical reasons. She has pain in the right leg and hip, the low back, and neck. She is able to walk but it is uncomforta ble. Cushion Builder did observe patient walking within the unit. On exam there is no deformity, crepitus, or inability to weight bear to suggest a fracture. Pain control has been inadequate on tylenol and ibuprofen, so I prescribed a single dose of IM toradol 30mg (tolerated last night). Given exam, the likelihood of fracture is extremely low. 312 Mami Oliveira MD Main - [address] [address] 04/09/2021 15:10:19 10/07/2021 15:26:57 Generalized acute body pains 638894325 R52 Pt with persistent pain since mechanical fall, elected not to get scheduled Xrays done today opting instead for Inst[facility] visit for IM toradol. however now reporting new headache, nausea, and somnolence c/f ICH vs concussion , though is A+O x4 on lock master exam and exhibits capacity. Recommend ED eval for xrays (per pt now cannot happen until Monday) and neuro exam w/ possible CT head. Pt and partner refuse ED eval, able to repeat back to myself and lock master risks including ICH and . NSAIDs contraindi cated until ICH ruled out. Pt expresses frustratio n around not receiving toradol, was given zofran ODT for symptomati c control (incorrect ly recorded below as IV, unable to change order). Recommend PCP f/up Monday if she elects not to pursue ED eval as recommende d over the weekend. [id number] Paul Moraes MD Main - [facility] [address] [place] [phone] 05/24/2021 16:57:53 10/04/2021 14:21:56 Flank pain 872279730 R10.9 Pain similar to prior sciatica/b ursiitis pain; no urinary symptoms to suggest UTI; renal function normal and reassuring for nephrolith iasis at this time Hypokalemia 00968825 E87 .6 Will give 80meq x1 of potassium. Advised to f/u w/PCP within one week for recheck. Suspect diet related Hyponatremia 55528890 E8 7.1 Likely dilutional due to increased free water intake, combined with baseline low sodium (Na was 128 on prior labs a few months back). Encouraged to f/u with PCP for recheck in the upcoming week [id number] Paul Moraes MD Main - [facility] [address] [place] [address] 01/13/2022 13:52:41 01/17/2022 11:18:44 Nausea 225827538 R11.0 Clinically stable. Not dehydrated . Will give Zofran and prescribe. No acute abdominal pain or tenderness on exam [id number] Edwar Murcia MD Main - [facility] [address] [place] [phone] 01/20/2022 12:03:59 01/24/2022 17:21:15 Low back pain 760631825 M54.50 [id number] Giovanni Galeana MD Main - [facility] [address] [place] [phone] 02/14/2022 12:46:57 02/14/2022 17:18:54 [id number] Julia Gillespie MD Main - [facility] [address] [place] [phone] 06/15/2022 13:21:04 06/15/2022 14:56:43 [id number] Julia Gillespie MD Main - [facility] [address] [place] [phone] 02/28/2023 12:40:30 02/28/2023 22:21:18 Adult health examination [id number] Z00.00 Health Concerns Section Related Observation LastModified by Organization Detai ls LastModified Time None Recorded Concern Status LastModified by Organization Details LastModified Time None Recorded Advance Directives Directive None Recorded Payers Insurance Date Sequence Insurance Name Policy Number Policy Hurtado Covered Member ID Hurtado Member ID Guarantor Name 06/07/[address] [facility] - DOS PRIOR TO 2022 - DUAL ELIGIBLE (MEDICARE REPLACEMENT/ADV ANTAGE - HMO) Thomas Dyer [id number] Thomas Dyer 06/07/[address] [facility] - DOS ON OR AFTER 2022 - DUAL ELIGIBLE - JAIL OPTIONS AND ONE CARE (MEDICARE REPLACEMENT/ADV ANTAGE - HMO) Thomas Linle [id number] Thomas Dyer Notes Date Note Type Note Provider Name and Address Organization Details Recorded Time 01/13/2022 text/html ROS as noted in the HPI HPI: Member's partner/ HCP Elise called into [facility] stating that Thomas vomited and can't hold anything down was transferred to the CRU line. Elise states that Thomas c/o stomach pain and vomited yesterday and vomited this morning, only able to take in sips of Jenn zac. She states that Thomas reports her LBM was yesterday 01/12. Thomas reports headache, uncertain of fever, has generalized weakness and body aches. Elise would like an Inst[facility] visit for someone to come take a look at Thomas. Elise yosi BRAVO# [phone] .................... .................... .................... .................... .................... .................... .................... . CRC Nursing Assessment: Comments: CRC RN did not require any additional information to process this visit. .................... .................... .................... .................... .................... .................... .................... . Cushion Builder Note: Sent to a call for a pt complaining of nausea/vomiting and abd pain. SC8 arrives on scene, pt is alert and oriented. Airway is patent. Pt complains of intermittent dizziness when standing, nausea, vomiting 1-2 times daily, and diffuse abd pain x 3 days. Pt denies headache, cp, sob, diarrhea, bloody stool, fever or loc. Pt has been eating/drinking little. (sitting) BP:124/67, P:57, RR:18, SpO2:98% RA, T:98.1; (standing) BP:143/84, P:81; Lung sounds: clear bilaterally; Abdomen: soft, non-tender, no distention; Skin: pink, warm, dry; Pt's last bowel movement was 2 days ago. Rapid covid test: neg; [facility] orders Zofran 4mg IM and sends script to pt's pharmacy. Zofran administered without incident. Red flags discussed. Pt has no further questions. .................... .................... .................... .................... .................... .................... .................... . Disposition: Fulfilled Paul Moraes MD [address] [facility],[address], [place], [address], [place] 01/14/2022 00:26:12 01/20/2022 text/html ROS as noted in the HPI HPI: Carrol's partner Elise is calling to report back pain 9/10 and abdominal pain 4/10 for this member. Carrol is reported to have fallen 3 years ago. Able to urinate without difficulty. No incontinence. No numbness. Able to walk inside the apartment without difficulty. Reports increased weakness today. States that the back pain may be during to sciatica flaring up. Abdominal pain 4/10. Endorses nausea and abdominal bloating/swelling. Denies vomiting, diarrhea, bloody or tarry stools. Afebrile. Requesting and Inst[facility] visit. CODE: Unknown ALLERGIES: Morphine, Codeine, Erythromycin, HCTZ, Bee stings PMHx: bipolar, fibromyalgia, OA, Sciatica, Celiac dx, Hx of DVT's, neuropathy .................... .................... .................... .................... .................... .................... .................... . CRC Nursing Assessment: Comments: CRC RN DID NOT NEED FURTHER INFO .................... .................... .................... .................... .................... .................... .................... . Cushion Builder Note: Pt states she had a fall 3 or 4 years ago and since then she has had on and off lower lumbar back pain. Pt states it seems to be flaring up and has been 3 or 4 days of now. Pt states she has had some GI issues but is being seen by a specialist in [place] and is mostly just concerned about back pain. Pt states she has taken Motrin with little effect but that ketorolac does normally help. C consulted. 30mg ketorolac IM given. Red flags discussed. .................... .................... .................... .................... .................... .................... .................... . Disposition: Fulfilled Edwar Murcia MD [address] [facility],[address], [place], [address], [employer] [facility] 01/20/2022 12:08:53 02/14/2022 text/html HPI: Member's partner, Elise, phoned in stating member fell backward 3 nights ago because she stumbled over her feet striking her head. Member was taken to the ED the following day, CT results were negative. Member went to PCP but waited too long and left. Member continues to have increase head and back pain. No abrasions or further complaints or symptoms. Please call with ETA. .................... .................... .................... .................... .................... .................... .................... . CRC Nursing Assessment: Comments: CRC RN DID NOT NEED FURTHER INFO .................... .................... .................... .................... .................... .................... .................... . Cushion Builder Note: Sent to a call for a pt complaining of neck/back pain following a fall 3 nights ago. SC8 arrives on scene, pt is lying in bed. Pt is alert and oriented. Pt states she fell backwards a few nights ago, and hit the back of her head. Pt was evaluated at [facility] ED and thinks she was diagnosed with a concussion. Pt states she has had lapses in memory since the incident. Pt doesn't remember what was done at ED, or if she passed out. Pt has history of TBI in the past. Pt complains of headache(posterior) with photophobia, dizziness, difficulty with word recall, previous speech issues from TBI are more pronounced (difficulty formulating certain sounds like s and th), lateral neck pain, pain in spine from thoracic area down her back, pain in right lumbar back, nausea, and intermittent sweating since fall. Pt states she also has black spots in her vision which started yesterday. Pt denies cp, sob, vomiting, diarrhea, abd pain, or fever. (supine) BP:111/67, P:68, (sitting) BP:115/72, P:74, (standing) BP:118/74, P:82, RR:18, SpO2:97% RA, T:98.4; Pupils: PERRL, Head: small lump midline occipital region; Neck: no tenderness, or deformity noted; Back: Tenderness from thoracic spine downward, tenderness in right lateral back; no deformities noted; Extremities: (+CMS) no deformities noted; Neuro exam negative except issues stated above; [facility] consulted. [facility] recommends transport to ED for re-evaluation due to symptoms. Pt refuses transport to ED stating her partner is at ED right now, and she does not want to go to ED. Pt states she will rest and think about going to ED later today or tomorrow. [facility] orders Zofran 4mg ODT; Zofran administered without incident. Red flags discussed. Pt has no further questions. .................... .................... .................... .................... .................... .................... .................... . Disposition: Fulfilled Giovanni Galeana MD [address] [facility],[address], [place], [address], [facility] - [place] 02/14/2022 17:18:51 06/15/2022 text/html HPI: Call transferred to CRU from [facility]. Carrol ANG/Elise goddard calling with mbr. Olivares requests for home visit to evaluate mbr's BP. States BP is going through the roof and to just sent Anna (instED medic), Elise states they do not have BP monitor at home. Elise states mbr had BP checked a few days ago, during partner's home visit, and BP was 150/130. Mbr at first denied sx, but then stated she was having SOB over the past few days, stating she couldn't catch her breath overnight a few times , having to use her inhaler and nebulizer w/o much effect. Reports SOB at rest and exertion and non-productive cough. Denies CP or wheezing. Reports mbr does not feel well, stating she is red and was sweating overnight. Unsure if fever/chills. Advised to check temp which they have not yet done, reports they have thermometer in the home. Elise then reports mbr with new weakness, numbness, tingling and tremors to L side starting in the middle of the night. This physician underwriter recommended calling 911 immediately to r/o stroke. Elise and mbr refuse despite this physician underwriter's recommendation that the sx member is experiencing require calling 911 and ED eval. Continue to refuse and request instED. PMH includes bipolar disorder, HTN, chronic embolism, thrombosis of L femoral vein, venous insufficiency, OA, neuropathy, fibromyalgia, bursitis, hand tremor, cognitive/speech impairment, DVT, hx falls, benign essential tremor, sciatica, chronic pain, insomnia, celiac disease, unspecified intracranial injury .................... .................... .................... .................... .................... .................... .................... . CRC Nursing Assessment: Comments: CRC RN DID NOT NEED FURTHER INFO .................... .................... .................... .................... .................... .................... .................... . Cushion Builder Note From Laurel Reddy: Sent to a call for a pt complaining of multiple complaints. SC8 arrives on scene, pt is found lying in bed. Pt appears agitated, crying, and states she is exhausted and stressed trying to take care of her partner with memory problems. Pt also complains of sob and productive cough x 3 days with yellow/brown sputum. Pt has been using inhaler and nebulizer as needed. Assessment is difficult due to pt's agitated state, and pt not answering questions clearly due to limited patience being too stressed. Pt states she needs help at home with housework, and needs time to care for herself, but she is giving all her time, attention, and energy to her partner because it is important they stay together. Pt states she has asked for help from friends, family, and healthcare, but they aren't getting help. BP:133/73, P:84, RR:18, SpO2:98% RA, T:99.0; Head: unremarkable, Lung sounds: clear bilaterally; Abdomen: soft, non-tender, no distention; Back: unremarkable, Extremities: tremor in hands/arms pt states is baseline; Lower extremities: unremarkable; Rapid flu test: neg, Rapid covid test: neg; [facility] consulted and requests follow up from care team. [facility] suggests pt reach out to PCP office regarding director of social work, and gives resource for [place] Family Caregiver Support. After call with [facility] pt states she missed a house assessment from [facility] last week regarding resource help, and it has been rescheduled for later this month. Family Caregiver Support services is contacted via phone by pt's request. A voicemail is left for [facility], and they will contact pt to follow up with resources. Red flags discussed. Pt has no further questions. .................... .................... .................... .................... .................... .................... .................... . Disposition: Fulfilled Julia Gillespie MD [address] [facility],[address], [place], [address], [employer] [facility] [place] 06/15/2022 14:56:41 02/28/2023 text/html [facility] Nurse Triage Notes (Sarath Fung): Reason For Request: Morphine is on the list of allergies to medication but according to pt's spouse it is no longer appicable. Chief Complaints: Pain PMH: Severe Persistent Mental Illness (SPMI), Hypertension Allergies: Morphine Comments: Director Of Real Estate verified the member's name//address and phone number - Education provided on the response time and was advised to monitor reported s/s and seek emergency treatment if needed. CG reports the member had a fall yesterday in the bathroom - Witnessed - Member struck her head - Denies LOC - Member is on blood thinners and reporting a HERNANDEZ- Denies dizziness - Denies N/V - Denies fevers - Concerns expressed and the CG/member is declining ER treatment - Doris MARINELLI .................... .................... .................... .................... .................... .................... .................... . Cushion Builder Note From Yefri Pittman: Dispatched to the call address for the female who fell and struck her head yesterday and now has a headache. Pt advised that she was not aware that her called and stated the reason she gave. She advises that the event did occur however it was not yesterday but rather back in 2020. Pt denies any recent falls. She does complain of a mild dry cough that she has been taking OTC medication for with mild relief. Pt denies n/v/d, CP or SoB. Pt was found in car, CAOx4, airway open and patent, breathing non labored, able to speak in full sentences, -JVD, -HEENT, skin PWD with good turgor, abd soft non tender/distended, pupils PERRL, lung sounds clear and equal bilaterally, +CMSx4, rapid covid/flu tests (-). C consulted. Red flags discussed. ALL times are approx. .................... .................... .................... .................... .................... .................... .................... . Disposition: Tong Gillespie MD [address] [facility],[address]LO[address], [place], [address], Kwelia 02/28/2023 13:05:40 OBGyn Episode No OBEpisode recorded.
--- OUTSIDE RECORDS SUMMARY | 2024-12-10 06:17 | XMS_ITS | Encounter Summary ---
Author Organization [facility] Address [address] [facility] [address] [place] [address] Phone Care Team Providers Care Fast Food Server Name Role Phone Marta Chauhan MD Primary Care Provider [phone] Salvador Khoury MD Primary Care Provider + Salvador Khoury MD Primary Care Provider + Roney Tracey MD Primary Care Provider [phone] Roney Tracey MD Primary Care Provider [phone] Yandel Man MD Primary Care Provider Rakan Mckinney MD Primary Care Provid er Encounter Details Date Type Department Care Team (Late st Contact Info) Description 04/20/2018 Procedure Pass [facility], [address] [place] [address] Social History Tobacco Use Types Packs/Day Years [...] Description 01/27/2025 12:30 PM EST Office Visit [facility] Gastroenterology Clinic 10 [place] [address] Faiza Mckeon SPECIAL OFFICER [address] [address] [email or web address] documented as of this encounter Visit Diagnoses Not on filedocumented in this encounter Additional Health Concerns Infection Onset Date Last Indicated Resolved Time CoV-Risk 10/06/2021 10/06/2021 10/17/2021 1:21 AM EDT documented as of this encounter Care Teams Fast Food Server Relationship Specialty Start Date End Date Marta Chauhan MD [address] [address] [email or web address] PCP - General 10/04/17 06/05/18 Salvador Khoury MD [address] [address] [email or web address] PCP - General Family Medicine 06/06/1801/06/19 Salvador Khoury MD [address] [address] [email or web address] PCP - General Family Medicine 01/07/1908/06 Roney Tracey MD 40 [place] [address] [email or web address] PCP - General Internal Medicine 08/22/19 07/19/20 Roney Tracey MD 40 [place] [address] [email or web address] PCP - General Internal Medicine 07/20/20 10/03/21 Yandel Man MD [address] [place] [address] PCP - General Internal Medicine 10/04/21 08/11/24 Rakan Mckinney MD [address] [place] [phone] PCP - General Internal Medicine 08/12/24 documented as of this encounter Additional Source Comments The information contained in this document represents components of the legal health record. It is not the complete legal health record.[facility]
--- OUTSIDE RECORDS SUMMARY | 2024-12-10 06:17 | XMS_ITS | Encounter Summary ---
Author Organization [facility] Address [address] [facility] [address] [place] [address] Phone Care Team Providers Care School Operations Manager Name Role Phone Yandel Man MD Primary Care Provider Rakan Mckinney MD Primary Care Provid er Encounter Details Date Type Department Care Team (Latest Contact Info) Description 03/25/2022 Transcribe Orders Virtual Department 30 [place] [address] Yumiko Chatman NP [address] [place] [address] [email or web address] Syncope and collapse Social History Tobacco Use [...] Description 01/27/2025 12:30 PM EST Office Visit [facility] Gastroenterology Clinic 10 [place] [address] Faiza Mckeon ENVIRONMENTAL HEALTH AND SAFETY INTERN [address] [place] [address] [email or web address] documented as of this encounter Visit Diagnoses Diagnosis Syncope and collapse documented in this encounter Additional Health Concerns Assessment Noted Time PHQ-2 Depression Total Score: 0 08/21/19 20 8:21 AM EDT documented as of this encounter Care Teams School Operations Manager Relationship Specialty Start Date End Date Yandel Man MD [address] [place] [address] PCP - General Internal Medicine 10/04/21 08/11/24 Rakan Mckinney MD [address] [place] [phone] PCP - General Internal Medicine 08/12/24 documented as of this encounter Additional Source Comments The information contained in this document represents components of the legal health record. It is not the complete legal health record.[facility]
--- OUTSIDE RECORDS SUMMARY | 2024-12-10 06:17 | XMS_ITS | Encounter Summary ---
Author Organization [facility] Address [address] [facility] [address] [place] [address] Phone Care Team Providers Care Air Turning Machine Feeder Name Role Phone Yandel Man MD Primary Care Provider Rakan Mckinney MD Primary Care Provid er Encounter Details Date Type Department Care Team (Late st Contact Info) Description 10/06/2021 Procedure Pass [facility], Ct Scan - [address] [address] Social History Tobacco Use Types Packs/Day Years [...] 6:41 AM EDT Frances Ramos RN * Forrest Suicide Severity Rating Scale (Screener/Recent Self-Report) Question [...] Description 01/27/2025 12:30 PM EST Office Visit [facility] Gastroenterology Clinic 10 [place] [address] Faiza Mckeon, MELONY [address] [address] [email or web address] documented as of this encounter Visit Diagnoses Not on filedocumented in this encounter Additional Health Concerns Infection Onset Date Last Indicated Resolved Time CoV-Risk 10/06/2021 10/06/2021 10/17/2021 1:21 AM EDT Assessment Noted Time PHQ-2 Depression Total Score: 0 08/21/19 20 8:21 AM EDT documented as of this encounter Care Teams Air Turning Machine Feeder Relationship Specialty Start Date End Date Yandel Man MD [address] [place] [phone] PCP - General Internal Medicine 10/04/21 08/11/24 Rakan Mckinney MD [address] [phone] PCP - General Internal Medicine 08/12/24 documented as of this encounter Additional Source Comments The information contained in this document represents components of the legal health record. It is not the complete legal health record.[facility]
--- OUTSIDE RECORDS SUMMARY | 2024-12-10 06:18 | XMS_ITS | Encounter Summary ---
Author Organization [facility] Address [address] [place] [address] Phone Care Team Providers Care Wearing Apparel Assembler Name Role Phone Roney Tracey MD Primary Care Provider [phone] Roney Tracey MD Primary Care Provider [phone] Yandel Man MD Primary Care Provider Rakan Mckinney MD Primary Care Provid er Encounter Details Date Type Department Care Team (Late st Contact Info) Description 08/30/2019 Procedure Pass [address] [place] [address] Social History Tobacco Use Types Packs/Day Years [...] Description 01/27/2025 12:30 PM EST Office Visit [facility] Gastroenterology Clinic 10 [place] [address] Faiza Mckeon, MELONY [address] [address] [email or web address] documented as of this encounter Visit Diagnoses Not on filedocumented in this encounter Additional Health Concerns Infection Onset Date Last Indicated Resolved Time CoV-Risk 10/06/2021 10/06/2021 10/17/2021 1:21 AM EDT Assessment Noted Time PHQ-2 Depression Total Score: 0 08/21/19 8:21 AM EDT documented as of this encounter Care Teams Wearing Apparel Assembler Relationship Specialty Start Date End Date Roney Tracey MD 40 [place] [address] [email or web address] PCP - General Internal Medicine 08/22/19 07/19/20 Roney Tracey MD 40 [place] [address] PCP - General Internal Medicine 07/20/20 10/03/21 Yandel Man MD [address] [place] [phone] PCP - General Internal Medicine 10/04/21 08/11/24 Rakan Mckinney MD [address] [place] [phone] PCP - General Internal Medicine 08/12/24 documented as of this encounter Additional Source Comments The information contained in this document represents components of the legal health record. It is not the complete legal health record.[facility]
--- OUTSIDE RECORDS SUMMARY | 2024-12-10 06:18 | XMS_ITS | Clinical Summary ---
Author Organization [facility] Address [address] [place] [address] Care Team Providers Care Crime Victim Specialist Name Role Phone Stella Rodriguez MD Primary Care Provider [phone] Allergies Active Allergy Reactions Criticality Noted Date [...] Health Maintenance Due Date Last Done Comments Mammogram 1993 Osteoporosis Screening 04/23/2003 Pneumococcal Vaccine: 50+ Years (1 of 1 - PCV) 04/23/2003 Zoster Vaccines (1 of 2) 04/23/2003 DTaP,Tdap,and Td Vaccines (3 - Td or Tdap) 05/10/2021 05/11/2011, 05/11/2011 Colonoscopy 07/16/2021 07/16/2020, 07/16/2020, 07/16/2020 Alcohol/Substance Use Screening 02/07/2024 Health Care Proxy Review 02/07/2024 COVID-19 Vaccine (3 - 2024-2 6 season) 2024 12/14/2020, 05/07/2020 Influenza Vaccine (#1) 2024 10/15/2020 RSV Vaccine (60+ years old and patients) (1 - 1-dose 75+ series) 2028 Hepatitis B Vaccines Aged Out No long er eligible based on patient's age to complete this topic Procedures * Due to [place] [employer] law, this organization might not be sharing negative HIV tests. Procedure Name Priority Date/Time Associated Diagnosis Comments COLONOSCOPY 07/16/2020 from Last 3 Months or Most Recently Relevant to Health Maintenance Results * Due to [place] [employer] law, this organization might not be sharing negative HIV tests. * COLONOSCOPY (07/16/2020) Narrative Procedure Note Jaron Madrid MD PhD - 07/16/2020 8:34 AM EDT Gastroenterology Patient Name: Thomas Dyer Procedure Date: 07/16/2020 8:34 AM Date of : 1955 Admit Type: Outpatient Age: 65 Room: [place] [address] Gender: Female Note Status: Finalized Attending MD: [...] 0 Note Initiated On: 07/16/2020 8:34 AM us Jaron Madrid MD PhD PROVATION PROCEDURES Final Result from Last 3 Months or Most Recently Relevant to Health Maintenance Insurance [facility] Care Teams Crime Victim Specialist Relationship Specialty Start Date End Date Stella Rodriguez MD [address] [place] [phone] PCP - General 03/16/21
--- OUTSIDE RECORDS SUMMARY | 2024-12-10 06:18 | XMS_ITS | Encounter Summary ---
Author Organization [facility] Address [address] [facility] [address] [place] [address] Phone Care Team Providers Care Industrial Tractor Driver Name Role Phone Salvador Khoury MD Primary Care Provider + Salvador Khoury MD Primary Care Provider + Roney Tracey MD Primary Care Provider [phone] Roney Tracey MD Primary Care Provider [phone] Yandel Man MD Primary Care Provider Rakan Mckinney MD Primary Care Provid er Encounter Details Date Type Department Care Team (Late st Contact Info) Description 07/23/2018 Ancillary Orders [facility],Outside Imaging 30 [place] [address] System, Provider Not In, [place] [address] Social History Tobacco Use Types Packs/Day Years [...] Description 01/27/2025 12:30 PM EST Office Visit [facility] Gastroenterology Clinic [address] [place] [address] Faiza Mckeon, RADIOCOMMUNICATIONS TECHNICIAN [address] [address] [email or web address] documented as of this encounter Results * [...] documented as of this encounter Care Teams Industrial Tractor Driver Relationship Specialty Start Date End Date Salvador Khoury MD [email or web address] PCP - General Family Medicine 06/06/1801/06/19 Salvador Khoury MD [email or web address] PCP - General Family Medicine 01/07/1908/06 Roney Tracey MD 40 [place] [address] PCP - General Internal Medicine 08/22/19 07/19/20 Roney Tracey MD 40 [place] [address] PCP - General Internal Medicine 07/20/20 10/03/21 Yandel Man MD [address] [place] [address] PCP - General Internal Medicine 10/04/21 08/11/24 Rakan Mckinney MD [address] [place] [phone] PCP - General Internal Medicine 08/12/24 documented as of this encounter Additional Source Comments The information contained in this document represents components of the legal health record. It is not the complete legal health record.[facility]
--- OUTSIDE RECORDS SUMMARY | 2024-12-10 06:18 | XMS_ITS | Encounter Summary ---
Author Organization [facility] Address [address] [facility] [address] [place] [address] Phone Care Team Providers Care Tiler Name Role Phone Yandel Man MD Primary Care Provider Rakan Mckinney MD Primary Care Provid er Encounter Details Date Type Department Care Team (Late st Contact Info) Description 08/05/2024 Procedure Pass [facility], Ct Scan - [address] [address] Social History Tobacco Use Types Packs/Day Years [...] [facility] Gastroenterology Clinic 10 [place] [address] Faiza Mckeon, MELONY [address] [address] [email or web address] documented as of this encounter Visit Diagnoses Not on filedocumented in this encounter Additional Health Concerns Assessment Noted Time PHQ-2 Depression Total Score: 0 08/21/19 20 8:21 AM EDT documented as of this encounter Care Teams Tiler Relationship Specialty Start Date End Date Yandel Man MD [address] [place] [address] PCP - General Internal Medicine 10/04/21 08/11/24 Rakan Mckinney MD [address] [place] [phone] PCP - General Internal Medicine 08/12/24 documented as of this encounter Additional Source Comments The information contained in this document represents components of the legal health record. It is not the complete legal health record.[facility]
--- OUTSIDE RECORDS SUMMARY | 2024-12-10 06:18 | XMS_ITS | Encounter Summary ---
Author Organization [facility] Address [address] [facility] [address] [place] [address] Phone Care Team Providers Care Wad Impregnator Name Role Phone Marta Chauhan MD Primary Care Provider Salvador Khoury MD Primary Care Provider + Salvador Khoury MD Primary Care Provider + Roney Tracey MD Primary Care Provider [phone] Roney Tracey MD Primary Care Provider [phone] Yandel Man MD Primary Care Provider Rakan Mckinney MD Primary Care Provid er Encounter Details Date Type Department Care Team (Late st Contact Info) Description 04/20/2018 Ancillary Orders [facility] Department [address] [place] [address] Marta Chauhan MD [address] [place] [address] [email or web address] Social History Tobacco Use Types Packs/Day [...] Description 01/27/2025 12:30 PM EST Office Visit [facility] Gastroenterology Clinic 10 [place] [address] Faiza Mckeon, MELONY [address] [address] [email or web address] documented as of this encounter Visit Diagnoses Not on filedocumented in this encounter Additional Health Concerns Infection Onset Date Last Indicated Resolved Time CoV-Risk 10/06/2021 10/06/2021 10/17/2021 1:21 AM EDT documented as of this encounter Care Teams Wad Impregnator Relationship Specialty Start Date End Date Marta Chauhan MD [address] [address] [email or web address] PCP - General 10/04/17 06/05/18 Salvador Khoury MD [address] [address] [email or web address] PCP - General Family Medicine 06/06/1801/06/19 Salvador Khoury MD [address] [address] PCP - General Family Medicine 01/07/1908/06 Roney Tracey MD 40 [place] [address] PCP - General Internal Medicine 08/22/19 07/19/20 Roney Tracey MD 40 [place] [address] PCP - General Internal Medicine 07/20/20 10/03/21 Yandel Man MD [address] [place] [address] PCP - General Internal Medicine 10/04/21 08/11/24 Rakan Mckinney MD [address] [place] [phone] PCP - General Internal Medicine 08/12/24 documented as of this encounter Additional Source Comments The information contained in this document represents components of the legal health record. It is not the complete legal health record.[facility]
--- OUTSIDE RECORDS SUMMARY | 2024-12-10 06:18 | XMS_ITS | Encounter Summary ---
Author Organization [facility] Address [address] [facility] [address] [place] [address] Phone Care Team Providers Care Paper Sealer Name Role Phone Yandel Man MD Primary Care Provider Rakan Mckinney MD Primary Care Provid er Reason for Referral * MRI/CAT Scan - Closed Specialty Diagnoses / Procedures Referred By Contac t Referred To Contact Radiology Diagnoses Pathological fracture, other site, initial encounter for fracture Procedures CT Thoracic Spine Lillian Engel NP [address] [place] [address] Phone: tel: fax: [email or web address] Referral ID Status Reason Start Date Expiration Date Visits Re quested Visits Authorized [id number] Closed 08/05/2024 08/05/2025 1 1 Encounter Details Date Type Department Care Team (Late st Contact Info) Description 08/05/2024 Transcribe Orders Virtual Department 30 [place] [address] Lillian Engel NP [address] [address] [email or web address] Pathological fracture, other site, initial encounter for [...] Description 01/27/2025 12:30 PM EST Office Visit [facility] Gastroenterology Clinic [address] [place] [address] Faiza Mckeon, ENGINEERING INTERN [address] [address] [email or web address] documented as of this encounter Results [...] compression fracture. No acute fracture. Lillian Engel FURNITURE SALESPERSON IMG CT XSPECIALTY ORDER JOSÉ LUIS Final Result documented in this encounter Visit Diagnoses Diagnosis Pathological fracture, other site, initial encounter for fracture- Primary Pathological fracture, other site, initial encounter for fracture documented in this encounter Additional Health Concerns Assessment Noted Time PHQ-2 Depression Total Score: 0 08/21/19 20 8:21 AM EDT documented as of this encounter Care Teams Paper Sealer Relationship Specialty Start Date End Date Yandel Man MD [address] [place] [phone] PCP - General Internal Medicine 10/04/21 08/11/24 Rakan Mckinney MD [address] [place] [phone] PCP - General Internal Medicine 08/12/24 documented as of this encounter Additional Source Comments The information contained in this document represents components of the legal health record. It is not the complete legal health record.[facility]
--- OUTSIDE RECORDS SUMMARY | 2024-12-10 06:18 | XMS_ITS | Encounter Summary ---
Author Organization [facility] Address [address] [facility] [address] [place] [address] Phone Care Team Providers Care Home Care Attendant Name Role Phone Salvador Khoury MD Primary Care Provider + Salvador Khoury MD Primary Care Provider + Roney Tracey MD Primary Care Provider [phone] Roney Tracey MD Primary Care Provider [phone] Yandel Man MD Primary Care Provider Rakan Mckinney MD Primary Care Provid er Encounter Details Date Type Department Care Team (Late st Contact Info) Description 08/28/2018 Procedure Pass [facility], [address] [address] Social History Tobacco Use Types Packs/Day Years [...] Description 01/27/2025 12:30 PM EST Office Visit [facility] Gastroenterology Clinic [address] [place] [address] Faiza Mckeon, PROTECTION ENGINEER 10 [facility] 2 [place] [address] [email or web address] documented as of this encounter Visit Diagnoses Not on filedocumented in this encounter Additional Health Concerns Infection Onset Date Last Indicated Resolved Time CoV-Risk 10/06/2021 10/06/2021 10/17/2021 1:21 AM EDT documented as of this encounter Care Teams Home Care Attendant Relationship Specialty Start Date End Date Salvador Khoury MD [email or web address] PCP - General Family Medicine 06/06/1801/06/19 Salvador Khoury MD [email or web address] PCP - General Family Medicine 01/07/1908/06 Roney Tracey MD 40 [place] [address] [email or web address] PCP - General Internal Medicine 08/22/19 07/19/20 Roney Tracey MD 40 [place] [address] [email or web address] PCP - General Internal Medicine 07/20/20 10/03/21 Yandel Man MD [address] [place] [phone] PCP - General Internal Medicine 10/04/21 08/11/24 Rakan Mckinney MD [address] [phone] PCP - General Internal Medicine 08/12/24 documented as of this encounter Additional Source Comments The information contained in this document represents components of the legal health record. It is not the complete legal health record.[facility]
--- OUTSIDE RECORDS SUMMARY | 2024-12-10 06:18 | XMS_ITS | Encounter Summary ---
Author Organization [facility] Address [address] [place] [address] Phone Care Team Providers Care Accounts Administrator Name Role Phone Marta Chauhan MD Primary Care Provider [phone] Marta Chauhan MD Primary Care Provider Salvador Khoury MD Primary Care Provider + Salvador Khoury MD Primary Care Provider + Roney Tracey MD Primary Care Provider [phone] Roney Tracey MD Primary Care Provider [phone] Yandel Man MD Primary Care Provider Rakan Mckinney MD Primary Care Provid er Encounter Details Date Type Department Care Team (Late st Contact Info) Description 09/26/2017 Procedure Pass [address] [place] [address] Social History Tobacco Use Types Packs/Day Years [...] documented in this encounter Plan of Treatment Upcoming Encounters Date Type Department Care Team (Late st Contact Info) Description 01/27/2025 12:30 PM EST Office Visit [facility] 10 [place] [address] Faiza Mckeon, MELONY [address] [address] [email or web address] documented as of this encounter Visit Diagnoses Not on filedocumented in this encounter Additional Health Concerns Infection Onset Date Last Indicated Resolved Time CoV-Risk 10/06/2021 10/06/2021 10/17/2021 1:21 AM EDT documented as of this encounter Care Teams Accounts Administrator Relationship Specialty Start Date End Date Marta Chauhan MD [address] [address] [email or web address] PCP - General 10/04/17 06/05/18 Marta Chauhan MD [address] [address] [email or web address] PCP - General Internal Medicine 09/26/17 10/03/17 Salvador Khoury MD [address] [address] [email or web address] PCP - General Family Medicine 06/06/1801/06/19 Salvador Khoury MD [address] [address] PCP - General Family Medicine 01/07/1908/06 Roney Tracey MD 40 [place] [address] [email or web address] PCP - General Internal Medicine 08/22/19 07/19/20 Roney Tracey MD 40 [place] [address] [email or web address] PCP - General Internal Medicine 07/20/20 10/03/21 Yandel Man MD [address] [place] [address] PCP - General Internal Medicine 10/04/21 08/11/24 Rakan Mckinney MD [address] [place] [phone] PCP - General Internal Medicine 08/12/24 documented as of this encounter Additional Source Comments The information contained in this document represents components of the legal health record. It is not the complete legal health record.[facility]
--- OUTSIDE RECORDS SUMMARY | 2024-12-10 06:18 | XMS_ITS | Patient Health Record ---
Author Organization [facility] Address [address] [place] [address] [address] [place] [address] Care Team Providers Care Research Animal Facility Supervisor Name Role Phone Bing Cary Unavailable [phone] Reason For Referral No Information Medications Medication SIG (Take, Route, Frequency, Duration) Notes Start Date End Date Status Glucosamine ORAL; Duration: -3 Dexter-MJ 01/13/2011 Active B Complex ORAL; Duration: -3 Dexter-MJ 01/13/2011 Active Fish Oil ORAL; Duration: -3 Dexter-MJ 01/13/2011 Active Avapro ORAL; Duration: -3 Dexter-MJ 01/13/2011 Active Problems Problem Type SNOMED Code ICD Code Onset Dates Problem Status W/U Status Risk Notes Problem Essential hypertension (65469754) Unspecified essential hypertension (401.9) Active confirmed Major Problem Menopausal symptom (24730691) Symptomatic menopausal or female climacteric states (627.2) Active confirmed Major Problem Postmenopausal atrophic vaginitis (80119444) Postmenopausal atrophic vaginitis (627.3) Active confirmed Diag Problem Muscle pain (66368077) Unspecified myalgia and myositis (729.1) Active confirmed Major Problem Intracranial injury of other and unspecified nature without mention of open intracranial wound (854.0) Active confirmed Major Problem Gynecological examination normal (642300565532608) Routine gynecological examination (V72.31) Active confirmed Major Problem Screening for malignant neoplasm of colon (667245682) Special screening for malignant neoplasms, colon (V76.51) Active confirmed Major Plan Of Treatment No Information Insurance Providers Payer Name Payer Address Payer Phone Subscriber Number Group Number Insured Name Patient Relationship to Insured Coverage Start Date Coverage End Date [facility] [address] [address] [place] [address] [id number] LU HOOPER Self - patient is the insured
--- OUTSIDE RECORDS SUMMARY | 2024-12-10 06:18 | XMS_ITS | Encounter Summary ---
Author Organization [facility] Address [address] [address] Phone Care Team Providers Care Intelligence Support Officer Name Role Phone Marta Chauhan MD Primary Care Provider [phone] Marta Chauhan MD Primary Care Provider [phone] Salvador Khoury MD Primary Care Provider + Salvador Khoury MD Primary Care Provider + Roney Tracey MD Primary Care Provider [phone] Roney Tracey MD Primary Care Provider [phone] Yandel Man MD Primary Care Provider Rakan Mckinney MD Primary Care Provid er Encounter Details Date Type Department Care Team (Late st Contact Info) Description 09/26/2017 Ancillary Orders Virtual Department [address] [place] [address] Sandra Rock, PA [address] [place] [address] Spinal stenosis, lumbar region with neurogenic claudication [...] Description 01/27/2025 12:30 PM EST Office Visit [facility] [address] [place] [address] Faiza Mckeon, SEISMOGRAPHER 10 [facility] 2 [place] [address] [email or web address] documented as of this encounter Results [...] No significant central canal stenosis apparent. POS [id number] Narrative 10/04/2017 10:24 AM EDT COMPARISON:None TECHNIQUE: [...] or central canal stenosis are suggested at zffC42-19 or T12-L1 levels. L1-2: There is ventral [...] L4-5. Nosignificant central canal stenosis apparent. POS [id number] Sandra BUSCH IMG MR XSPECIALTY Final Result documented in this encounter Visit Diagnoses Diagnosis Spinal stenosis, lumbar region with neurogenic claudication Spinal stenosis, lumbar region with neurogenic claudication documented in this encounter Additional Health Concerns Infection Onset Date Last Indicated Resolved Time CoV-Risk 10/06/2021 10/06/2021 10/17/2021 1:21 AM EDT documented as of this encounter Care Teams Intelligence Support Officer Relationship Specialty Start Date End Date Marta Chauhan MD [address] [address] [email or web address] PCP - General 10/04/17 06/05/18 Marta Chauhan MD [address] [address] [email or web address] PCP - General Internal Medicine 09/26/17 10/03/17 Salvador Khoury MD [address] [address] [email or web address] PCP - General Family Medicine 06/06/1801/06/19 Salvador Khoury MD [address] [place] [address] [email or web address] PCP - General Family Medicine 01/07/1908/06 Roney Tracey MD 40 [place] [address] [email or web address] PCP - General Internal Medicine 08/22/19 07/19/20 Roney Tracey MD 40 [place] [address] PCP - General Internal Medicine 07/20/20 10/03/21 Yandel Man MD [address] [place] [place] [address] PCP - General Internal Medicine 10/04/21 08/11/24 Rakan Mckinney MD [address] [place] [phone] PCP - General Internal Medicine 08/12/24 documented as of this encounter Additional Source Comments The information contained in this document represents components of the legal health record. It is not the complete legal health record.[facility]
--- OUTSIDE RECORDS SUMMARY | 2024-12-10 06:19 | XMS_ITS | Encounter Summary ---
Author Organization [facility] Address [address] [facility] [address] [place] [address] Phone Care Team Providers Care Beekeeper Name Role Phone Salvador Khoury MD Primary Care Provider + Salvador Khoury MD Primary Care Provider + Roney Tracey MD Primary Care Provider [phone] Roney Tracey MD Primary Care Provider [phone] Yandel Man MD Primary Care Provider Rakan Mckinney MD Primary Care Provid er Encounter Details Date Type Department Care Team (Late st Contact Info) Description 09/10/2018 Ancillary Orders [facility] Medical [facility] Orthopedics & Sports Medicine [address] [place] [address] Tiara Ruelas MD [address] [place] [address] Orthopedics & Sports Medicine, [facility] [place], [place] [id number] [email or web address] Social History Tobacco Use Types Packs/Day Years [...] Description 01/27/2025 12:30 PM EST Office Visit [facility] 10 [place] [address] Faiza Mckeon, STERILE PROC TECH [address] [address] [email or web address] documented as of this encounter Visit Diagnoses Not on filedocumented in this encounter Additional Health Concerns Infection Onset Date Last Indicated Resolved Time CoV-Risk 10/06/2021 10/06/2021 10/17/2021 1:21 AM EDT documented as of this encounter Care Teams Beekeeper Relationship Specialty Start Date End Date Salvador Khoury MD [email or web address] PCP - General Family Medicine 06/06/1801/06/19 Salvador Khoury MD [email or web address] PCP - General Family Medicine 01/07/1908/06 Roney Tracey MD [address] [place] [address] [email or web address] PCP - General Internal Medicine 08/22/19 07/19/20 Roney Tracey MD 40 [place] [address] PCP - General Internal Medicine 07/20/20 10/03/21 Yandel Man MD [address] [place] [address] PCP - General Internal Medicine 10/04/21 08/11/24 Rakan Mckinney MD [address] [place] [phone] PCP - General Internal Medicine 08/12/24 documented as of this encounter Additional Source Comments The information contained in this document represents components of the legal health record. It is not the complete legal health record.[facility]
--- OUTSIDE RECORDS SUMMARY | 2024-12-10 06:20 | XMS_ITS | Encounter Summary ---
Author Organization [facility] Address 399 [facility] [address] [place] [address] Phone Care Team Providers Care Aircraft Cleaning Supervisor Name Role Phone Marta Chauhan MD Primary Care Provider [phone] Salvador Khoury MD Primary Care Provider + Salvador Khoury MD Primary Care Provider + Roney Tracey MD Primary Care Provider [phone] Roney Tracey MD Primary Care Provider [phone] Yandel Man MD Primary Care Provider Rakan Mckinney MD Primary Care Provid er Reason for Referral * MRI/CAT Scan - Closed Specialty Diagnoses / Procedures Referred By Jarrod alvarez Referred To Contact Radiology Diagnoses Spontaneous rupture of flexor tendon of left thigh Procedures MRI Femur (Left) Marta Chauhan MD [address] [address] Phone: tel: fax: [email or web address] Referral ID Status Reason Start Date Expiration Date Visits Re quested Visits Authorized [id number] Closed 04/20/2018 04/20/2019 1 1 Encounter Details Date Type Department Care Team (Late st Contact Info) Description 04/20/2018 Ancillary Orders Virtual Department 30 [place] [address] Marta Chauhan MD [address] [address] [email or web address] Spontaneous rupture of flexor tendon of left [...] Description 01/27/2025 12:30 PM EST Office Visit [facility] 10 [place] [address] Faiza Mckeon, STUDENT RECRUITER 10 [facility] 2 [place] [address] [email or web address] documented as of this encounter Results * MRI FEMUR WITHOUT CONTRAST (LEFT) (04/27/2018 11:25 AM EDT) Anatomical Region Laterality Modality Thigh Left Magnetic Resonan ce 04/27/2018 12:0 6 PM EDT Impressions 04/27/2018 12:21 PM EDT Probable trochanteric bursitis. Suspect benign lymphedema in the subcutaneous fat of the posterior proximal thigh. No muscle, tendon or bony pathology. [id number] Narrative 04/27/2018 12:21 PM EDT TECHNIQUE: 1.5 Isabella scanner. Multiplanar/multisequence exam using 2 dbhmf-kg-ncsc to cover the entire thigh. No IV [...] 1.5 Isabella scanner. Multiplanar/multisequence exam using 2 vyual-mj-mfwj to cover the entirethigh. No IV contrast. [...] proximal thigh. No muscle, tendon orbony pathology. [id number] Marta Chauhan MD IMG MR EXTREMITY Final Result documented in this encounter Visit Diagnoses Diagnosis Spontaneous rupture of flexor tendon of left thigh Spontaneous rupture of flexor tendon of left thigh documented in this encounter Additional Health Concerns Infection Onset Date Last Indicated Resolved Time CoV-Risk 10/06/2021 10/06/2021 10/17/2021 1:21 AM EDT documented as of this encounter Care Teams Aircraft Cleaning Supervisor Relationship Specialty Start Date End Date Marta Chauhan MD [address] [address] [email or web address] PCP - General 10/04/17 06/05/18 Salvador Khoury MD [address] [address] PCP - General Family Medicine 06/06/1801/06/19 Salvador Khoury MD [address] [place] [address] [email or web address] PCP - General Family Medicine 01/07/1908/06 Roney Tracey MD 40 [place] [address] PCP - General Internal Medicine 08/22/19 07/19/20 Roney Tracey MD 40 [place] [address] PCP - General Internal Medicine 07/20/20 10/03/21 Yandel Man MD [address] [place] [phone] PCP - General Internal Medicine 10/04/21 08/11/24 Rakan Mckinney MD [address] [place] [phone] PCP - General Internal Medicine 08/12/24 documented as of this encounter Additional Source Comments The information contained in this document represents components of the legal health record. It is not the complete legal health record.[facility]
== END 2024-12-10 06:15 | disposition home or self-care (01) ==
LOC: CF 06:14
PROVIDERS: Visit Provider Anesthesiology
DX: M47.815 Spondylosis without myelopathy or radiculopathy, thoracolumbar region (principal)
CPT/HCPCS: 64493; 64494; J2003; J2795; Q9967

== ENCOUNTER 2024-12-10 09:07 | Outpatient (AMB) | payer MEDICARE, SELFPAY ==
[2024-12-10 09:11] VITALS: BP 150/72; PULSE 91; RESP 16; O2SAT 99; BMI 27.2
--- NOTE | 2024-12-10 09:11 | MHC.OFFVIS ---
Vital Signs 12/10/24 09:11 12/10/24 09:59 12/10/24 10:07 Height 5 ft 3.5 in Weight 156 lb BMI 27.2 BP 150/72 H 96/54 L 119/55 L Blood Pressure Location Lt brachial Rt brachial Lt brachial Position Sitting Sitting Sitting Respiration 16 16 Pulse 91 82 Pulse Source Pulse Oximeter Pulse Oximeter Pulse Oximetry (%) 99 98 Oxygen Delivery Method Room Air Room Air Intake Visit Reasons: Bilateral Diagnostic [id number] MBB Allergies codeine Allergy (Unknown, Verified 10/15/24 10:43) Unknown erythromycin base Allergy (Unknown, Verified 10/15/24 10:43) Unknown penicillin V Allergy (Unknown, Verified 10/15/24 10:43) Unknown [facility] Medical History Hyperlipidemia Major depression Stress incontinence Thoracic compression fracture DVT (deep venous thrombosis) Hypertension Traumatic brain injury Left breast mass Social History Alcohol intake: never Tobacco use type: Cigarette Physical Exam Vital Signs: Last Vital Signs Pulse 82 12/10/24 09:59 Resp 16 12/10/24 09:59 BP 119/55 L 12/10/24 10:07 Pulse Ox 98 12/10/24 09:59 Oxygen Delivery Method Room Air 12/10/24 09:59 BMI result Body Mass Index 27.2 Assessment & Plan Assessment & Plan (1) Spondylosis of lumbar region without myelopathy or radiculopathy: Code(s): M47.816 - Spondylosis without myelopathy or radiculopathy, lumbar region Category: Medical Plan Diagnostic medial branch block L2, L3, L4, bilateral. Thomas is very pleasant 69 years old female who presents in my office today for performance of unknown level medial branch block. The case was scheduled as T12, L1, L2 medial branch block. We took the patient under the C-arm. The entire back was prepped with ChloraPrep and draped with sterile self adhesive utility towels. The C-arm was brought over the operating field and using sterile needle costa I palpated the back of the patient. The patient reported most severe pain in the projection of the L4 vertebra. The decision was made to perform L2, L3, L4, bilateral medial branch block. The points of interest of the injections were delineated as the confluence of the silhouette of the superior articular process of L2, L3, L4, bilaterally with the transverse process of the same vertebra bilaterally. The projection of the point of interest to the skin was injected with small amount of lidocaine 2% mixed with ropivacaine 0.5%. After that 22 gauge 3-1/2 inch spinal needle was sequentially driven to each point of interest in tunnel vision fashion. When tip of the needle gently contacted the bone injection of the contrast was performed demonstrating no intravascular and no intrathecal spread of the contrast. After that injection of the treatment medication containing ropivacaine 0.5% no more than 1 mL at each needle insertion was performed. After that the needle was removed and sterile Band-Aids were applied. Patient tolerated the procedure well. Orders: Orders FL guidance in treatment room 12/10/24 M47.815 - Spondylosis without myelopathy or radiculopathy, thoracolumbar region Coding Level of Care Code Procedure Only Diagnoses Spondylosis of lumbar region without myelopathy or radiculopathy M47.816
[2024-12-10 09:59] VITALS: BP 96/54; PULSE 82; RESP 16; O2SAT 98
[2024-12-10 10:07] VITALS: BP 119/55
== END 2024-12-10 10:15 | disposition home or self-care (01) ==
LOC: HO.PMCPRC 09:07
PROVIDERS: PCP Internal Medicine; Visit Provider Anesthesiology
DX: M47.816 Spondylosis without myelopathy or radiculopathy, lumbar region (principal)
CPT/HCPCS: 64493; 64494

== ENCOUNTER 2024-12-13 14:07 | Outpatient (AMB) | payer MEDICARE, SELFPAY ==
--- NOTE | 2024-12-13 14:14 | MHC.OFFVIS ---
Vital Signs 12/13/24 14:20 Height 5 ft 3.5 in Weight 155 lb BMI 27.0 BP 139/65 Blood Pressure Location Rt brachial Position Sitting Pulse 85 Pulse Source Pulse Oximeter Pulse Oximetry (%) 97 Oxygen Delivery Method Room Air Intake Visit Reasons: Post op Intake Note: Pain today 4 Forging Press Operator Required: No Accompanied by: Self / Same As Patient Allergies codeine Allergy (Unknown, Verified 12/13/24 14:19) Unknown erythromycin base Allergy (Unknown, Verified 12/13/24 14:19) Unknown penicillin V Allergy (Unknown, Verified 12/13/24 14:19) Unknown HPI Comments Details: The patient is a 69-year-old female presenting with mid back pain. The mid back pain has been persistent, and the patient underwent bilateral diagnostic T64-W6-T0 medial branch blocks with Dr. Celis on December 10. The injections provided temporary relief, reducing the pain to a 3 out of 10 immediately after the procedure, but the pain increased to 9 out of 10 within six hours. The following day, the pain was reduced to a 3 out of 10 for about five hours, indicating some temporary relief. The patient experienced significant discomfort during the procedure, almost passing out and feeling very sick, which was attributed to the diagnostic nature of the injections. A bone scan is scheduled for further evaluation of osteoporosis, which will guide future treatment options such as therapeutic steroid injections, Sprint PNS trial or radiofrequency ablation. Denies any recent cough, cold, infection, fever or any significant changes in medical history since last office visit. Past Procedures: 12/10/24: Bilateral Diagnostic [id number] MBB-70% pain relief for 5-6 hours. PRIOR: The patient is a 69-year-old female presenting with chronic low back pain. The pain began after a fall in June of the previous year, which resulted in a compression fracture. She underwent rehabilitation at [facility] and physical therapy following the injury in July 2023. The patient's pain is described as constant, stabbing, burning, and pulling, with a severity of 9/10 in the morning and night, and 6/10 during the day. The pain is exacerbated by movements, walking, weather changes, and affects her sleep and daily activities. Activities such as driving, reaching, lifting, and climbing stairs are particularly difficult, and standing in one place is very challenging. The patient has a history of a traumatic brain injury in 2010, with no subsequent seizures. She also has polyneuropathy affecting her feet and hands, though the cause has not been determined. Additionally, she has a history of vascular surgery due to a blood clot in her left leg, for which she takes Eliquis. The patient lives alone but has a supportive social network and receives assistance from a helper twice a week. She retired early to care for a grandchild and previously ran a cleaning business. Currently, she manages her pain primarily with ice and avoids Motrin due to gastrointestinal concerns. - Onset: Began after a fall in June of the previous year - Quality: Constant, stabbing, burning, pulling - Severity: /10 in the morning and night, 6/10 during the day - Location: Lower back, radiating to thoracic region - Exacerbating factors: Movements, walking, weather changes - Relieving factors: None specifically mentioned - Interference: Affects sleep, daily activities, driving, reaching, lifting, climbing stairs, standing - Affect: Pain impacts sleep and daily activities - Analgesia: Currently using ice; avoids Motrin due to gastrointestinal concerns - Adverse Effects: None reported from current pain management - Activities of Daily Living: Pain interferes with driving, reaching, lifting, climbing stairs, standing - Aberrant Drug Related Behaviors: None reported Oswestry Low Back Pain Disability Score=26 [facility] Medical History Hyperlipidemia Major depression Stress incontinence Thoracic compression fracture DVT (deep venous thrombosis) Hypertension Traumatic brain injury Left breast mass Social History Alcohol intake: never Tobacco use type: Cigarette Review of Systems Const Details: - Musculoskeletal: Reports mid back pain, temporary relief post-procedure. All systems reviewed & are unremarkable except as noted in HPI and below Physical Exam Vital Signs: Last Vital Signs Pulse 85 12/13/24 14:20 BP 139/65 12/13/24 14:20 Pulse Ox 97 12/13/24 14:20 Oxygen Delivery Method Room Air 12/13/24 14:20 BMI result Body Mass Index 27.0 General: Appears afebrile. Alert and oriented. Mood and affect appropriate. Follows and participates in conversation appropriately. Respiratory effort is unlabored. No cough. Able to transition from sit to stand unassisted. Ambulates with bilaterally normal heel strike and toe off. Back/Spine/Pelvis Cervical Spine: cervical ROM normal, cervical muscular tenderness and No Cervical spine tenderness Thoracic/Lumbar Spine: thoracic and lumbar spine normal to inspection, No Thoracic/lumbar spine scar(s), Lasegue's sign negative, straight leg raise negative bilaterally, pain with thoraco-lumbar ROM, thoraco-lumbar ROM limited, thoracic spinal tenderness (lower thoracic) and lumbar spinal tenderness (upper lumbar) Sacroiliac joints: bilaterally tender to palpation Assessment & Plan Assessment & Plan (1) Thoracic compression fracture: Comment: T7, T12 Code(s): S22.000A - Wedge compression fracture of unspecified thoracic vertebra, initial encounter for closed fracture Category: Medical (2) Chronic back pain: Code(s): M54.9 - Dorsalgia, unspecified; G89.29 - Other chronic pain Category: Medical (3) Spondylosis of thoracolumbar spine: Code(s): M47.815 - Spondylosis without myelopathy or radiculopathy, thoracolumbar region Category: Medical (4) Spondylosis of lumbar region without myelopathy or radiculopathy: Code(s): M47.816 - Spondylosis without myelopathy or radiculopathy, lumbar region Category: Medical Plan The plan includes awaiting the results of the bone scan to determine the presence of osteoporosis, which will guide future treatment options. If osteoporosis is not present, therapeutic steroid injections may be considered. Alternatively, radiofrequency ablation or peripheral nerve stimulation are potential options for managing the mid back pain. All questions and concerns have been answered and patient agreed with the treatment plan. Follow up as needed. Patient was informed and verbally consented to the use of an ambient scribe for clinic note documentation during this visit. Coding Level of Care Code Est Pt Level 3 (58660) Complex EM visit Add On G2211 Diagnoses Thoracic compression fracture S22.000A Chronic back pain M54.9; G89.29 Spondylosis of thoracolumbar spine M47.815 Spondylosis of lumbar region without myelopathy or radiculopathy M47.816
[2024-12-13 14:20] VITALS: BP 139/65; PULSE 85; O2SAT 97; BMI 27.0
--- OUTSIDE RECORDS SUMMARY | 2024-12-13 15:55 | XMS_ITS | Encounter Summary ---
Author Organization [facility] Address [address] [facility] [address] [place] [address] Phone Care Team Providers Care Laboratory Engineer Name Role Phone Yandel Man MD Primary Care Provider Rakan Mckinney MD Primary Care Provid er Encounter Details Date Type Department Care Team (Late st Contact Info) Description 10/06/2021 Procedure Pass [facility], Ct Scan - [address] [address] Social History Tobacco Use Types Packs/Day Years [...] 6:41 AM EDT Frances Ramos RN * [place] Suicide Severity Rating Scale (Screener/Recent Self-Report) Question [...] Description 01/27/2025 12:30 PM EST Office Visit [facility] [address] [place] [address] Faiza Mckeon, MELONY [address] [address] [email or web address] documented as of this encounter Visit Diagnoses Not on filedocumented in this encounter Additional Health Concerns Infection Onset Date Last Indicated Resolved Time CoV-Risk 10/06/2021 10/06/2021 10/17/2021 1:21 AM EDT Assessment Noted Time PHQ-2 Depression Total Score: 0 08/21/19 20 8:21 AM EDT documented as of this encounter Care Teams Laboratory Engineer Relationship Specialty Start Date End Date Yandel Man MD [address] [place] [id number] PCP - General Internal Medicine 10/04/21 08/11/24 Rakan Mckinney MD [address] [phone] PCP - General Internal Medicine 08/12/24 documented as of this encounter Additional Source Comments The information contained in this document represents components of the legal health record. It is not the complete legal health record.[facility]
--- OUTSIDE RECORDS SUMMARY | 2024-12-13 15:55 | XMS_ITS | Encounter Summary ---
Author Organization [facility] Address [address] [facility] [address] [place] [address] Phone Care Team Providers Care Premium Note Interest Calculator Clerk Name Role Phone Salvador Khoury MD Primary Care Provider + Salvador Khoury MD Primary Care Provider + Roney Tracey MD Primary Care Provider [phone] Roney Tracey MD Primary Care Provider [phone] Yandel Man MD Primary Care Provider Rakan Mckinney MD Primary Care Provid er Encounter Details Date Type Department Care Team (Late st Contact Info) Description 08/28/2018 Procedure Pass [facility], [address] [address] Social History Tobacco Use Types Packs/Day Years [...] Description 01/27/2025 12:30 PM EST Office Visit [facility] [address] [place] [address] Faiza Mckeon, PRESS OPERATOR [employer] 10 [facility] 2 [place] [address] [email or web address] documented as of this encounter Visit Diagnoses Not on filedocumented in this encounter Additional Health Concerns Infection Onset Date Last Indicated Resolved Time CoV-Risk 10/06/2021 10/06/2021 10/17/2021 1:21 AM EDT documented as of this encounter Care Teams Premium Note Interest Calculator Clerk Relationship Specialty Start Date End Date Salvador Khoury MD [email or web address] PCP - General Family Medicine 06/06/1801/06/19 Salvador Khoury MD [email or web address] PCP - General Family Medicine 01/07/1908/06 Roney Tracey MD [address] [place] [address] [email or web address] PCP - General Internal Medicine 08/22/19 07/19/20 Roney Tracey MD [address] [place] [address] [email or web address] PCP - General Internal Medicine 07/20/20 10/03/21 Yandel Man MD [address] [place] [address] PCP - General Internal Medicine 10/04/21 08/11/24 Rakan Mckinney MD [address] [phone] PCP - General Internal Medicine 08/12/24 documented as of this encounter Additional Source Comments The information contained in this document represents components of the legal health record. It is not the complete legal health record.[facility]
--- OUTSIDE RECORDS SUMMARY | 2024-12-13 15:55 | XMS_ITS | Encounter Summary ---
Author Organization [facility] Address [address] [facility] [address] [place] [address] Phone Care Team Providers Care Vacuum Cleaner Mechanic Name Role Phone Salvador Khoury MD Primary Care Provider + Salvador Khoury MD Primary Care Provider + Roney Tracey MD Primary Care Provider [phone] Roney Tracey MD Primary Care Provider [phone] Yandel Man MD Primary Care Provider Rakan Mckinney MD Primary Care Provid er Encounter Details Date Type Department Care Team (Late st Contact Info) Description 07/23/2018 Ancillary Orders [facility],Outside Imaging [address] [place] [address] System, Provider Not In, [place] [address] Social History Tobacco Use Types Packs/Day Years [...] Description 01/27/2025 12:30 PM EST Office Visit [facility] [address] [place] [address] Faiza Mckeon, LOCAL SALES MANAGER [address] [address] [email or web address] documented as of this encounter Results [...] documented as of this encounter Care Teams Vacuum Cleaner Mechanic Relationship Specialty Start Date End Date Salvador Khoury MD .[employer] PCP - General Family Medicine 06/06/1801/06/19 Salvador Khoury MD .[employer] PCP - General Family Medicine 01/07/1908/06 Roney Tracey MD [address] [place] [address] PCP - General Internal Medicine 08/22/19 07/19/20 Roney Tracey MD [address] [place] [address] PCP - General Internal Medicine 07/20/20 10/03/21 Yandel Man MD [address] [place] [address] PCP - General Internal Medicine 10/04/21 08/11/24 Rakan Mckinney MD [address] [place] [phone] PCP - General Internal Medicine 08/12/24 documented as of this encounter Additional Source Comments The information contained in this document represents components of the legal health record. It is not the complete legal health record.[facility]
--- OUTSIDE RECORDS SUMMARY | 2024-12-13 15:55 | XMS_ITS | Encounter Summary ---
Author Organization [facility] Address [address] [facility] [address] [place] [address] Phone Care Team Providers Care Communication Skills Instructor Name Role Phone Yandel Man MD Primary Care Provider Rakan Mckinney MD Primary Care Provid er Encounter Details Date Type Department Care Team (Late st Contact Info) Description 08/05/2024 Procedure Pass [facility], Ct Scan - [address] [address] Social History Tobacco Use Types Packs/Day Years [...] Description 01/27/2025 12:30 PM EST Office Visit [facility] [address] [place] [address] Faiza Mckeon, MELONY [address] [address] [email or web address] documented as of this encounter Visit Diagnoses Not on filedocumented in this encounter Additional Health Concerns Assessment Noted Time PHQ-2 Depression Total Score: 0 08/21/19 20 8:21 AM EDT documented as of this encounter Care Teams Communication Skills Instructor Relationship Specialty Start Date End Date Yandel Man MD [address] [place] [address] PCP - General Internal Medicine 10/04/21 08/11/24 Rakan Mckinney MD [address] [place] [phone] PCP - General Internal Medicine 08/12/24 documented as of this encounter Additional Source Comments The information contained in this document represents components of the legal health record. It is not the complete legal health record.[facility]
--- OUTSIDE RECORDS SUMMARY | 2024-12-13 15:55 | XMS_ITS | Encounter Summary ---
Author Organization [facility] Address [address] [address] Phone Care Team Providers Care Analytics Leader Name Role Phone Marta Chauhan MD Primary Care Provider [phone] Marta Chauhan MD Primary Care Provider [phone] Salvador Khoury MD Primary Care Provider + Salvador Khoury MD Primary Care Provider + Roney Tracey MD Primary Care Provider [phone] Roney Tracey MD Primary Care Provider [phone] Yandel Man MD Primary Care Provider Rakan Mckinney MD Primary Care Provid er Encounter Details Date Type Department Care Team (Late st Contact Info) Description 09/26/2017 Ancillary Orders Virtual Department 30 [place] [address] Sandra Rock, PA [address] [place] [address] Spinal stenosis, lumbar region with neurogenic claudication [...] Description 01/27/2025 12:30 PM EST Office Visit [facility] [address] [place] [address] Faiza Mckeon, MOTOR GENERATOR SET OPERATOR 10 [facility] 2 [place] [address] [email or web address] documented as of this encounter [...] No significant central canal stenosis apparent. POS [id number] Narrative 10/04/2017 10:24 AM EDT COMPARISON:None TECHNIQUE: [...] or central canal stenosis are suggested at [id number] or T12-L1 levels. L1-2: There is ventral [...] L4-5. Nosignificant central canal stenosis apparent. POS [id number] Sandra BUSCH IMG MR XSPECIALTY Final Result documented in this encounter Visit Diagnoses Diagnosis Spinal stenosis, lumbar region with neurogenic claudication Spinal stenosis, lumbar region with neurogenic claudication documented in this encounter Additional Health Concerns Infection Onset Date Last Indicated Resolved Time CoV-Risk 10/06/2021 10/06/2021 10/17/2021 1:21 AM EDT documented as of this encounter Care Teams Analytics Leader Relationship Specialty Start Date End Date Marta Chauhan MD [address] [address] [email or web address] PCP - General 10/04/17 06/05/18 Marta Chauhan MD [address] [address] [email or web address] PCP - General Internal Medicine 09/26/17 10/03/17 Salvador Khoury MD [address] [address] [email or web address] PCP - General Family Medicine 06/06/1801/06/19 Salvador Khoury MD [address] [place] [address] [email or web address] PCP - General Family Medicine 01/07/1908/06 Roney Tracey MD [address] [place] [address] [email or web address] PCP - General Internal Medicine 08/22/19 07/19/20 Roney Tracey MD 40 [place] [address] [email or web address] PCP - General Internal Medicine 07/20/20 10/03/21 Yandel Man MD [address] [place] [address] PCP - General Internal Medicine 10/04/21 08/11/24 Rakan Mckinney MD [address] [place] [phone] PCP - General Internal Medicine 08/12/24 documented as of this encounter Additional Source Comments The information contained in this document represents components of the legal health record. It is not the complete legal health record.[facility]
--- OUTSIDE RECORDS SUMMARY | 2024-12-13 15:55 | XMS_ITS | Clinical Summary ---
Author Organization [facility] Address [address] [place] [address] Care Team Providers Care Law Enforcement Director Name Role Phone Stella Rodriguez MD Primary Care Provider [phone] Allergies Active Allergy Reactions Criticality Noted Date [...] complete this topic Procedures * Due to [place] [employer] law, this organization might not be sharing negative HIV tests. Procedure Name Priority Date/Time Associated Diagnosis Comments COLONOSCOPY 07/16/2020 from Last 3 Months or Most Recently Relevant to Health Maintenance Results * Due to [place] [employer] law, this organization might not be sharing negative HIV tests. * COLONOSCOPY (07/16/2020) Narrative Procedure Note Jaron Madrid MD PhD - 07/16/2020 8:34 AM EDT Gastroenterology Patient Name: Thomas Dyer Procedure Date: 07/16/2020 8:34 AM Date of : 1955 Admit Type: Outpatient Age: 65 Room: [place] [address] Gender: Female Note Status: Finalized Attending MD: [...] Most Recently Relevant to Health Maintenance Insurance [facility] Care Teams Law Enforcement Director Relationship Specialty Start Date End Date Stella Rodriguez MD [address] [place] [place] [phone] PCP - General 03/16/21
--- OUTSIDE RECORDS SUMMARY | 2024-12-13 15:55 | XMS_ITS | Encounter Summary ---
Author Organization [facility] Address [address] [facility] [address] [place] [address] Phone Care Team Providers Care Raw Stock Machine Feeder Name Role Phone Salvador Khoury MD Primary Care Provider + Salvador Khoury MD Primary Care Provider + Roney Tracey MD Primary Care Provider [phone] Roney Tracey MD Primary Care Provider Yandel Man MD Primary Care Provider Rakan Mckinney MD Primary Care Provid er Encounter Details Date Type Department Care Team (Late st Contact Info) Description 09/10/2018 Ancillary Orders [address] [address] Tiara Ruelas MD [address] [place] [address] Orthopedics [facility] Sports Medicine, [place] [address] [email or web address] Hip pain, right Social History Tobacco Use [...] Description 01/27/2025 12:30 PM EST Office Visit [facility] [address] [place] [address] Faiza Mckeon, SUPERINTENDENT POWER [address] [address] [email or web address] documented as of this encounter Visit Diagnoses Diagnosis Hip pain, right Pain in joint, pelvic region and thigh documented in this encounter Additional Health Concerns Infection Onset Date Last Indicated Resolved Time CoV-Risk 10/06/2021 10/06/2021 10/17/2021 1:21 AM EDT documented as of this encounter Care Teams Raw Stock Machine Feeder Relationship Specialty Start Date End Date Salvador Khoury MD [email or web address] PCP - General Family Medicine 06/06/1801/06/19 Salvador Khoury MD [email or web address] PCP - General Family Medicine 01/07/1908/06 Roney Tracey MD [address] [place] [address] [email or web address] PCP - General Internal Medicine 08/22/19 07/19/20 Roney Tracey MD [address] [place] [address] [email or web address] PCP - General Internal Medicine 07/20/20 10/03/21 Yandel Man MD [address] [place] [phone] PCP - General Internal Medicine 10/04/21 08/11/24 Rakan Mckinney MD [address] [place] [phone] PCP - General Internal Medicine 08/12/24 documented as of this encounter Additional Source Comments The information contained in this document represents components of the legal health record. It is not the complete legal health record.[facility]
--- OUTSIDE RECORDS SUMMARY | 2024-12-13 15:55 | XMS_ITS | Encounter Summary ---
Author Organization [facility] Address [address] [facility] [address] [place] [address] Phone Care Team Providers Care Senior Php Software Developer Name Role Phone Marta Chauhan MD Primary Care Provider [phone] Salvador Khoury MD Primary Care Provider + Salvador Khoury MD Primary Care Provider + Roney Tracey MD Primary Care Provider [phone] Roney Tracey MD Primary Care Provider [phone] Yandel Man MD Primary Care Provider Rakan Mckinney MD Primary Care Provid er Reason for Referral * MRI/CAT Scan - Closed Specialty Diagnoses / Procedures Referred By Jarrod alvarez Referred To Contact Radiology Diagnoses Spontaneous rupture of flexor tendon of left thigh Procedures MRI Femur (Left) Marta Chauhan MD [address] [address] Phone: tel: fax: [email or web address] Referral ID Status Reason Start Date Expiration Date Visits Re quested Visits Authorized [id number] Closed 04/20/2018 04/20/2019 1 1 Encounter Details Date Type Department Care Team (Late st Contact Info) Description 04/20/2018 Ancillary Orders Virtual Department 30 [place] [address] Marta Chauhan MD [address] [address] [email or web address] Spontaneous rupture of flexor tendon of left [...] PM EST Office Visit [facility] 10 [place] [address] Faiza Mckeon, RESOURCE PARAPROFESSIONAL 10 [facility] 2 [place] [address] [email or web address] documented as of this encounter Results * MRI FEMUR WITHOUT CONTRAST (LEFT) (04/27/2018 11:25 AM EDT) Anatomical Region Laterality Modality Thigh Left Magnetic Resonan ce 04/27/2018 12:0 6 PM EDT Impressions 04/27/2018 12:21 PM EDT Probable trochanteric bursitis. Suspect benign lymphedema in the subcutaneous fat of the posterior proximal thigh. No muscle, tendon or bony pathology. [id number] Narrative 04/27/2018 12:21 PM EDT TECHNIQUE: 1.5 Isabella scanner. Multiplanar/multisequence exam using 2 [id number]-nd-ptnd to cover the entire thigh. No IV [...] 1.5 Isabella scanner. Multiplanar/multisequence exam using 2 ilsvc-cj-wlgr to cover the entirethigh. No IV contrast. [...] proximal thigh. No muscle, tendon orbony pathology. [id number] Marta Chauhan MD IMG MR EXTREMITY Final Result documented in this encounter Visit Diagnoses Diagnosis Spontaneous rupture of flexor tendon of left thigh Spontaneous rupture of flexor tendon of left thigh documented in this encounter Additional Health Concerns Infection Onset Date Last Indicated Resolved Time CoV-Risk 10/06/2021 10/06/2021 10/17/2021 1:21 AM EDT documented as of this encounter Care Teams Senior Php Software Developer Relationship Specialty Start Date End Date Marta Chauhan MD [address] [address] [email or web address] PCP - General 10/04/17 06/05/18 Salvador Khoury MD [address] [address] PCP - General Family Medicine 06/06/1801/06/19 Salvador Khoury MD [address] [place] [address] [email or web address] PCP - General Family Medicine 01/07/1908/06 Roney Tracey MD 40 [place] [address] PCP - General Internal Medicine 08/22/19 07/19/20 Roney Tracey MD 40 [place] [address] PCP - General Internal Medicine 07/20/20 10/03/21 Yandel Man MD [address] [place] [address] PCP - General Internal Medicine 10/04/21 08/11/24 Rakan Mckinney MD [address] [place] [phone] PCP - General Internal Medicine 08/12/24 documented as of this encounter Additional Source Comments The information contained in this document represents components of the legal health record. It is not the complete legal health record.[facility]
--- OUTSIDE RECORDS SUMMARY | 2024-12-13 15:55 | XMS_ITS | Data Portability ---
Author Organization [employer] Address 30 [place] [address] Care Team Providers Care Cook Roast Name Role Phone [facility] Referring [...] PCP. The patient agreed with this plan. [email or web address] Not available 01/20/2022 12:08:17 02/14/2022 02/14/2022 66 [...] sore throat or any other concerns. VSS. Diplomatic Courier on site reports no acute distress, lungs clear to auscultation throughout. POC COVID and flu negative. The primary hope for this visit per automatic fancy machine operator when speaking with Ms. Dyer is to identify resources for help at home and for stress management. She has a PCP appointment coming up in the next week, and encouraged her to bring these complaints to her PCP. She was given the phone number to the family caregiver support program by the [facility] and encouraged to call. Otherwise, physical complaints seem at baseline. Episodes of cough and dyspnea seem mild and subacute, without evidence today of acute exacerbation or infection. Primary team, Ms. Dyer is experiencing significant caregiver fatigue and would benefit from a discussion of resources and mitigation strategies. [email or web address] Not available 06/15/2022 13:34:38 02/28/2023 02/28/2023 Ms. [...] had no recent falls of concern. VSS. Diplomatic Courier on site reports no distress. On conversation with automatic fancy machine operator Ms. Dyer reported a mild cough and [...] 4 mg disintegrat ing tablet 2021 022 [id number], [address] [facility], [place], [address], 13:58:22 ondansetron HCl (PF) 4 mg/2 mL [...] available 04/09/2021 4053 RxNorm Mami Oliveira MD [address] [place] [address],[address], [place], [phone], [employer] 16:12:26 101 hydrochlo rothiazid e medicatio n Not available Not available Not available 04/09/2021 5487 RxNorm Mami Oliveira MD [address] [place] [address],[address], [place], [phone], [employer] 2 16:12:34 102 morphine medicatio n Not available Not available Not available 04/09/2021 7052 RxNorm Not Available [facility] - [facility] 4 03:35:29 99 codeine medicatio n Not available Not available Not available 04/09/2021 2670 RxNorm Mami Oliveira MD [address] [place] [address],[address], [place], [phone], [employer] 16:12:10 Medications Name Sig Start Date Stop [...] Details Last Updated DateTime 3 18 /min 75529.5 6 g 82 /min 160.02 cm 98.4 [degF] 97 % 97 % 18 /min 98.4 [degF] 82 /min 160.02 cm 97 % Not Available [facility] - production 3 13:18:20 Date Recorded Oxygen saturation in Arterial blood by Pulse oximetry Body weight Systolic And Diastolic Systolic And Diastolic Provider Name and Address Organization Details Last Updated DateTime 02/14/2022 97 % 76545.56 g 118/74 mm[Hg] 118/74 mm[Hg] Not Available [employer] [facility] - production 3 13:18:20 Date Recorded Respiratory rate Heart rate Body temperature Oxygen saturation Oxygen saturation in Arterial blood by Pulse oximetry Systolic And Diastolic Provider Name and Address Organization Details Last Updated DateTime 4 16 /min 67 /min 98.7 [degF] 98 % 98 % 122/68 mm[Hg] Not Available [employer] [facility] production 4 12:40:32 Date Recorded Body temperature Heart rate Respiratory rate Oxygen saturation Oxygen saturation in Arterial blood by Pulse oximetry Systolic And Diastolic Provider Name and Address Organization Details Last Updated DateTime 3 99 [degF] 84 /min 18 /min 98 % 98 % 133/73 mm[Hg] Not Available [employer] [facility] 3 13:21:07 Date Recorded Body weight Body temperature Respiratory rate Body height Oxygen saturation Oxygen saturation in Arterial blood by Pulse oximetry Heart rate Body weight Respiratory rate Heart rate Body height Oxygen saturation Provider Name and Address Organization Details Last Updated DateTime 2 00767.5 6 g 98.1 [degF] 18 /min 160.02 cm 98 % 98 % 57 /min 83815.5 6 g 18 /min 57 /min 160.02 cm 98 % Not Available [facility] - production 2 14:33:10 Date Recorded Oxygen saturation in Arterial blood by Pulse oximetry Body temperature Systolic And Diastolic Systolic And Diastolic Provider Name and Address Organization Details Last Updated DateTime 01/13/2022 98 % 98.1 [degF] 124/67 mm[Hg] 124/67 mm[Hg] Not Available [employer] - production 2 14:33:10 Date Recorded Heart rate Oxygen saturation Oxygen saturation in Arterial blood by Pulse oximetry Respiratory rate Body temperature Systolic And Diastolic Provider Name and Address Organization Details Last Updated DateTime 2 60 /min 98 % 98 % 18 /min 97.9 [degF] 148/80 mm[Hg] Not Available [employer] 2 12:04:01 Social History None recorded. Functional [...] Note 302 Merrick Fraser MD Main - [address] [phone] 04/08/2021 20:21:01 09/22/2021 12:39:10 Accidental fall 140543125 W19.XXXD 65yo man seen for evaluation of trauma after right leg fall. The fall occurred yesterday morning and was reportedly mechanical . She was referred for outpatient x-rays but these were not obtained for logistical reasons. She has pain in the right leg and hip, the low back, and neck. She is able to walk but it is uncomforta ble. Diplomatic Courier did observe patient walking within the unit. On exam there is no deformity, crepitus, or inability to weight bear to suggest a fracture. Pain control has been inadequate on tylenol and ibuprofen, so I prescribed a single dose of IM toradol 30mg (tolerated last night). Given exam, the likelihood of fracture is extremely low. 312 Mami Oliveira MD Main - [address] [phone] 04/09/2021 15:10:19 10/07/2021 15:26:57 Generalized acute body pains 887050169 R52 Pt with persistent pain since mechanical fall, elected not to get scheduled Xrays done today opting instead for [facility] visit for IM toradol. however now reporting new headache, nausea, and somnolence c/f ICH vs concussion , though is A+O x4 on automatic fancy machine operator exam and exhibits capacity. Recommend ED eval for xrays (per pt now cannot happen until Monday) and neuro exam w/ possible CT head. Pt and partner refuse ED eval, able to repeat back to myself and automatic fancy machine operator risks including ICH and . NSAIDs contraindi cated until ICH ruled out. Pt expresses frustratio n around not receiving toradol, was given zofran ODT for symptomati c control (incorrect ly recorded below as IV, unable to change order). Recommend PCP f/up Monday if she elects not to pursue ED eval as recommende d over the weekend. 1052 Paul Moraes MD Main - [facility] [address] [place] [phone] 05/24/2021 16:57:53 10/04/2021 14:21:56 Flank pain 211295191 R10.9 Pain similar to prior sciatica/b ursiitis pain; no urinary symptoms to suggest UTI; renal function normal and reassuring for nephrolith iasis at this time Hypokalemia 03686588 E87 .6 Will give 80meq x1 of potassium. Advised to f/u w/PCP within one week for recheck. Suspect diet related Hyponatremia 71576884 E8 7.1 Likely dilutional due to increased free water intake, combined with baseline low sodium (Na was 128 on prior labs a few months back). Encouraged to f/u with PCP for recheck in the upcoming week 5963 Paul Moraes MD Main - [facility] [address] [place] [phone] 01/13/2022 13:52:41 01/17/2022 11:18:44 Nausea 391602696 R11.0 Clinically stable. Not dehydrated . Will give Zofran and prescribe. No acute abdominal pain or tenderness on exam 6172 Edwar Murcia MD Main - [facility] [address] [place] [phone] 01/20/2022 12:03:59 01/24/2022 17:21:15 Low back pain 888931306 M54.50 6872 Giovanni Galeana MD Main - [facility] [address] [place] [phone] 02/14/2022 12:46:57 02/14/2022 17:18:54 [id number] Julia Gillespie MD Main - [facility] [address] [place] [phone] 06/15/2022 13:21:04 06/15/2022 14:56:43 [id number] Julia Gillespie MD Main - [facility] [address] [place] [phone] 02/28/2023 12:40:30 02/28/2023 22:21:18 Adult health examination 556864490 Z00.00 Health Concerns Section Related Observation LastModified by Organization Detai ls LastModified Time None Recorded Concern Status LastModified by Organization Details LastModified Time None Recorded Advance Directives Directive None Recorded Payers Insurance Date Sequence Insurance Name Policy Number Policy Hurtado Covered Member ID Hurtado Member ID Guarantor Name 06/07/2024 1 [facility] - DOS PRIOR TO 2022 - DUAL ELIGIBLE (MEDICARE REPLACEMENT/ADV ANTAGE - HMO) Thomas Dyer [id number] Thomas Dyer 06/07/2024 1 [facility] - DOS ON OR AFTER 2022 - DUAL ELIGIBLE - HALF-WAY OPTIONS AND ONE CARE (MEDICARE REPLACEMENT/ADV ANTAGE - HMO) Thomas Linle [id number] Thomas Dyer Notes Date Note Type Note [...] a look at Thomas. Elise yosi BRAVO# [phone] .................... .................... .................... .................... .................... .................... .................... . CRC Nursing Assessment: Comments: CRC RN did not require any additional information to process this visit. .................... .................... .................... .................... .................... .................... .................... . Diplomatic Courier Note: Sent to a call for a [...] 2 days ago. Rapid covid test: neg; [facility] orders Zofran 4mg IM and sends script to pt's pharmacy. Zofran administered without incident. Red flags discussed. Pt has no further questions. .................... .................... .................... .................... .................... .................... .................... . Disposition: Fulfilled Paul Moraes MD 30 [facility],[address], [place], [address], [employer] 01/14/2022 00:26:12 01/20/2022 text/html ROS as noted [...] .................... .................... .................... .................... .................... .................... . Diplomatic Courier Note: Pt states she had a fall 3 or 4 years ago and since then she has had on and off lower lumbar back pain. Pt states it seems to be flaring up and has been 3 or 4 days of now. Pt states she has had some GI issues but is being seen by a specialist in [place] and is mostly just concerned about back pain. Pt states she has taken Motrin with little effect but that ketorolac does normally help. C consulted. 30mg ketorolac IM given. Red flags discussed. .................... .................... .................... .................... .................... .................... .................... . Disposition: Fulfilled Edwar Murcia MD 30 [facility],[address], [place], [phone], [employer] 01/20/2022 12:08:53 02/14/2022 text/html HPI: Member's partner, [...] .................... .................... .................... .................... .................... .................... . Diplomatic Courier Note: Sent to a call for a pt complaining of neck/back pain following a fall 3 nights ago. [facility] arrives on scene, pt is lying in bed. Pt is alert and oriented. Pt states she fell backwards a few nights ago, and hit the back of her head. Pt was evaluated at [facility] ED and thinks she was diagnosed with [...] negative except issues stated above; [facility] consulted. [facility] recommends transport to ED for re-evaluation due to symptoms. Pt refuses transport to ED stating her partner is at ED right now, and she does not want to go to ED. Pt states she will rest and think about going to ED later today or tomorrow. [facility] orders Zofran 4mg ODT; Zofran administered without incident. Red flags discussed. Pt has no further questions. .................... .................... .................... .................... .................... .................... .................... . Disposition: Fulfilled Giovanni Galeana MD 30 [facility],[address], [place], [address], [employer] 02/14/2022 17:18:51 06/15/2022 text/html HPI: Call transferred [...] in the middle of the night. This sign writer letterer or painter recommended calling 911 immediately to r/o stroke. Elise and mbr refuse despite this sign writer letterer or painter's recommendation that the sx member is experiencing [...] .................... .................... .................... .................... .................... .................... . Diplomatic Courier Note From Laurel Reddy: Sent to a [...] flu test: neg, Rapid covid test: neg; [facility] consulted and requests follow up from care team. [facility] suggests pt reach out to PCP office regarding manager social, and gives resource for [place] Family Caregiver Support. After call with [facility] pt states she missed a house assessment from [facility] last week regarding resource help, and it has been rescheduled for later this month. Family Caregiver Support services is contacted via phone by pt's request. A voicemail is left for [facility], and they will contact pt to follow up with resources. Red flags discussed. Pt has no further questions. .................... .................... .................... .................... .................... .................... .................... . Disposition: Fulfilled Julia Gillespie MD 30 [facility],[address], [place], [address], [employer] 06/15/2022 14:56:41 02/28/2023 text/html CRC Nurse Triage Notes (Sarath Fung): Reason For Request: Morphine is on the list of allergies to medication but according to pt's spouse it is no longer appicable. Chief Complaints: Pain PMH: Severe Persistent Mental Illness (SPMI), Hypertension Allergies: Morphine Comments: Ship Steward verified the member's name//address and phone number [...] .................... .................... .................... .................... .................... .................... . Diplomatic Courier Note From Yefri Pittman: Dispatched to the [...] .................... . Disposition: Tong Gillespie MD 30 [facility],[address], [place], [address], [employer] 02/28/2023 13:05:40 OBGyn Episode No OBEpisode recorded.
--- OUTSIDE RECORDS SUMMARY | 2024-12-13 15:55 | XMS_ITS | Encounter Summary ---
Author Organization [facility] Address [address] [place] [address] Phone Care Team Providers Care Barytes Grinder Name Role Phone Marta Chauhan MD Primary Care Provider [phone] Marta Chauhan MD Primary Care Provider [phone] Salvador Khoury MD Primary Care Provider + Salvador Khoury MD Primary Care Provider + Roney Tracey MD Primary Care Provider [phone] Roney Tracey MD Primary Care Provider [phone] Yandel Man MD Primary Care Provider Rakan Mckinney MD Primary Care Provid er Encounter Details Date Type Department Care Team (Late st Contact Info) Description 09/26/2017 Procedure Pass [address] [place] [address] Social History Tobacco Use Types Packs/Day Years [...] Description 01/27/2025 12:30 PM EST Office Visit [facility] 10 [place] [address] Faiza Mckeon, MELONY [address] [address] [email or web address] documented as of this encounter Visit Diagnoses Not on filedocumented in this encounter Additional Health Concerns Infection Onset Date Last Indicated Resolved Time CoV-Risk 10/06/2021 10/06/2021 10/17/2021 1:21 AM EDT documented as of this encounter Care Teams Barytes Grinder Relationship Specialty Start Date End Date Marta Chauhan MD [address] [address] [email or web address] PCP - General 10/04/17 06/05/18 Marta Chauhan MD [address] [address] [email or web address] PCP - General Internal Medicine 09/26/17 10/03/17 Salvador Khoury MD [address] [address] [email or web address] PCP - General Family Medicine 06/06/1801/06/19 Salvador Khoury MD [address] [address] PCP - General Family Medicine 01/07/1908/06 Roney Tracey MD 40 [place] [address] [email or web address] PCP - General Internal Medicine 08/22/19 07/19/20 Roney Tracey MD 40 [place] [address] [email or web address] PCP - General Internal Medicine 07/20/20 10/03/21 Yandel Man MD [address] [place] [address] PCP - General Internal Medicine 10/04/21 08/11/24 Rakan Mckinney MD [address] [place] [phone] PCP - General Internal Medicine 08/12/24 documented as of this encounter Additional Source Comments The information contained in this document represents components of the legal health record. It is not the complete legal health record.[facility]
--- OUTSIDE RECORDS SUMMARY | 2024-12-13 15:55 | XMS_ITS | Encounter Summary ---
Author Organization [facility] Address [address] [place] [address] Phone Care Team Providers Care Powderman Name Role Phone Yandel Man MD Primary Care Provider Rakan Mckinney MD Primary Care Provid er Encounter Details Date Type Department Care Team (Latest Contact Info) Description 03/25/2022 Transcribe Orders Virtual Department 30 [place] [address] Yumiko Chatman NP [address] [place] [address] [email or web address] Syncope and collapse Social History Tobacco Use [...] Office Visit [facility] 10 [place] [address] Faiza Mckeon BREAKER OFF [address] [place] [address] [email or web address] documented as of this encounter Visit Diagnoses Diagnosis Syncope and collapse documented in this encounter Additional Health Concerns Assessment Noted Time PHQ-2 Depression Total Score: 0 08/21/19 20 8:21 AM EDT documented as of this encounter Care Teams Powderman Relationship Specialty Start Date End Date Yandel Man MD [address] [place] [address] PCP - General Internal Medicine 10/04/21 08/11/24 Rakan Mckinney MD [address] [place] [phone] PCP - General Internal Medicine 08/12/24 documented as of this encounter Additional Source Comments The information contained in this document represents components of the legal health record. It is not the complete legal health record.[facility]
--- OUTSIDE RECORDS SUMMARY | 2024-12-13 15:55 | XMS_ITS | Clinical Summary ---
Author Organization [facility] Address [address] [address] Phone Care Team Providers Care Photographer'S Assistant Name Role Phone Rakan Mckinney MD Primary [...] AM EDT): We will set up with [place] [facility] to assess the cause of the diarrhea which I think is probably IBS related but should be ruled out. PARI (generalized anxiety disorder) 03/18/2020 Assessment & Plan (06/08/2020 9:12 AM EDT): The patient does see Dr. Pop at [facility]. We will refer the patient back to [facility], for now though trial of BuSpar 5 [...] pain and now that she has a ASPHALT TILE FLOOR LAYER we can have a better assessment of [...] 12:01 PM EDT): This visit was called [id number] for patient safety reason. The patient is [...] will obtain lumbar MRI before patient sees [place] orthopedic physician, Dr. Wheatley Assessment & Plan (08/21/2019 6:59 PM EDT): The patient had or rather has an appointment with [place] [facility] surgery regarding some slipped disks in her lower back. She had made the appointment with [place] [facility] but she does not have a [...] follow blood pressure 10. PT, OT, and DBAS evaluations Medication refill 08/07/2018 Assessment & Plan [...] going against arthritis even tho xray at [facility] was read as mild osteoarthritis. Long discussion [...] new pair. The medical supply places in [place] in [place] Assessment & Plan (02/20/2019 7:45 PM EST): [...] activity/exercise will do referral to the rheumatology [place] for help again discussed do not like [...] anticoagulant and she will go with her personal banking advisor who will pose the question whether the [...] a recent visit with interventional radiologist at [facility] said she still has some small clots these appear to be superficial she is on anti-and clotting factors and do not recommend any further follow-up kept the use of compression stockings which patient has no trouble putting on Assessment & Plan (12/13/2018 10:34 PM EST): shady vasc [facility] w clots sds superficial lifelong eliquis wo bleeding trouble Assessment & Plan (08/28/2018 1:47 PM EDT): Patient remains on Eliquis, she does have chronic swelling and pain of the left lower extremity. 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 Follow-up with interventional radiologist at [facility] Benign essential hypertension 06/08/2018 Assessment & Plan [...] gabapentin. States she is followed by the [facility] and her has a therapist there Karan [...] of bleeding infection did give her shot Immunizations Immunization Administration Dates Next Due COVID-19 [...] 07/20/2020 8:40 AM EDT Plan of Treatment Upcoming Encounters Date Type Department Care Team (Late st Contact Info) Description 01/27/2025 12:30 PM EST Office Visit [facility] Gastroenterology Clinic [address] [place] [address] Faiza Mckeon, MELONY [address] [address] [email or web address] Health Maintenance Due Date Last Done Comments BLOOD PRESSURE 1953 SMOKING Hx and SMOKELESS TOBACCO SCREENING 1966 COLOGUARD 1998 FIT TEST 1998 FOBT 1998 SIGMOIDOSCOPY 1998 VIRTUAL COLONOSCOPY 1998 PNEUMOCOCCAL VACCINES (50+ years) (1 of 1 - PCV) 04/23/2003 ZOSTER VACCINES (1 of 2) 04/23/2003 OSTEOPOROSIS SCREENING INITIAL (ONE-TIME) 2018 MAMMOGRAM 07/16/2020 07/16/2018, 03/04/2016 DEPRESSION SCREENING 08/20/2020 08/21/2019 Adult Td,Tdap Booster 05/10/2021 05/11/2011 COLONOSCOPY 03/03/2022 03/03/2017 COLORECTAL CANCER SCREENING 03/03/2022 LIPID PANEL 08/30/2023 08/29/2018 CREATININE LEVEL 08/20/2024 08/21/2023, 01/2024, 10/06/2021, Additional history exists INFLUENZA VACCINE (#1) 2024 10/15/2020 COVID-19 VACCINE ( season) 2024 12/14/2020, 05/07/2020 RSV VACCINE (1 - 1-dose 75+ series) 2028 HEPATITIS C SCREENING Completed 08/30/2019 HEPATITIS A VACCINES Aged Out No long er eligible based on patient's age to complete this topic HIB VACCINES Aged Out No longer eligi ble based on patient's age to complete this topic IPV VACCINES Aged Out No longer eligi ble based on patient's age to complete this topic MENINGOCOCCAL VACCINES (ACWY) Aged Out No longer eligible based on patient's age to complete this topic MENINGOCOCCAL VACCINES (B) Aged Out N o longer eligible based on patient's age to complete this topic Medical Devices Not on file Procedures Procedure Name Priority Date/Time Associated Diagnosis Comments COMPREHENSIVE METABOLIC PANEL (CMP) Routine 08/21/2023 9:06 AM EDT Hypokalemia Syncope, [...] Recently Relevant to Health Maintenance Results * (ABNORMAL) Comprehensive metabolic panel (08/21/2023 9:06 AM EDT) SODIUM 133 133 - 146 mmol/L [facility] POTASSIUM 4.4 3.3 - 5.1 mmol/L [facility] CHLORIDE 98 96 - 108 mmol/L [facility] CO2 26 21 - 35 mmol/L [facility] BUN 11 6 - 19 mg/dL [facility] CREATININE 0.50 0.5 - 1.5 mg/dL [facility] GLUCOSE 133(H) 70 - 99 mg/dL [facility] ALBUMIN 3.3(L) 3.9 - 4.8 g/dL [facility] TOTAL PROTEIN 5.8(L) 6.5 - 8.0 g/dL [facility] CALCIUM 8.7 8.4 - 10.3 mg/dL [facility] ALKALINE PHOSPHATASE 50 39 - 117 U/L [facility] TOTAL BILIRUBIN <0.2 0.0 - 1.2 mg/dL [facility] AST 14 0 - 37 U/L [facility] ALT 13 0 - 40 U/L [facility] GLOBULIN 2.5 1 - 4.8 g/dL [facility] EGFR 101 >59 mL/min/1.7 3m2 [facility] Comment:Estimated glomerular filtration rate calculated using the CKD-EPI refit equation. ANION GAP 13 10 - 20 mmol/L [facility] Blood 08/21/2023 9:06 AM EDT 08/21/2023 12:33 PM EDT us Selina Arredondo MD LAB BLOOD BKR ORDERABLES Final Result [facility] [address] [place] [address] * Hepatitis C antibody, qualitative (08/30/2019 10:08 AM EDT) HCV NON-REACTIV E NON-REACTI VE [facility] Blood 08/30/2019 10:0 8 AM EDT 08/30/2019 10:33 AM EDT us Roney Tracey MD LAB BLOOD BKR ORDERABLES Final R esult Performing Organization Address City/[facility]/ZIP Co de Phone Number [address] [address] * (ABNORMAL) Lipid panel (08/29/2018 5:36 AM EDT) HDL 45 mg/dL [facility] Comment: Interpretation <40 mg/dL: Low HDL cholesterol (major risk factor for CHD) Greater than or equal to 60 mg/dL: High HDL cholesterol ( negative risk factor for CHD) HDL - cholesterol is affected by a number of factors, e.g. smoking, excerise, hormones, sex and age. CHOLESTEROL 132 0 - 240 mg/dL [facility] TRIGLYCERIDES 96 30 - 160 mg/dL [facility] LDL 68 50 - 129 mg/dL [facility] Comment: LDL levels in terms of risk for coronary heart disease: <100 mg/dL: Optimal 100-129 mg/dL: Near or above optimal 130-159 mg/dL: Borderline high 160-189 mg/dL: High >190 mg/dL: Very High CARDIAC RISK RATIO 2.9(L) 3.3 - 4.4 [facility] Blood 08/29/2018 5:36 AM EDT 08/29/2018 6:08 AM EDT us Richar Cortes MD LAB BLOOD BKR ORDERABLES Final Result Performing Organization Address City/[facility]/ZIP Co de Phone Number [address] [address] * BI MAMMOGRAM SCREENING WITH TOMOSYNTHESIS WITH [...] Most Recently Relevant to Health Maintenance Insurance HEALTH SAFETY NET FULL MEDICARE REPLACEMENT [facility] SAFETY NET FULL MEDICARE REPLACEMENT [facility] NET FULL Member Subscriber Plan / Payer (Ef fective 2023-Present) Name:Thomas Dyer Relation to Subscriber:Self Name:Thomas Dyer Payer ID:Not on file Group ID:Not on file Type:Medicaid Address: [address] MEDICARE [facility] FULL MEDICARE REPL[facility] HEALTH SAFETY NET FULL Member Subscriber Plan / Payer (Ef fective 2023-Present) Name:Thomas Dyer Relation to Subscriber:Self Name:Thomas Dyer Payer ID:Not on file Group ID:Not on file Type:Medicaid Address: [address] MEDICARE REPLACEMENT [facility] HEALTH SAFETY NET FULL [facility] MEDICARE REPLAC[facility] [place] [id number] Advance Directives For more information, please contact: [phone] (9AM - 5PM [facility], Monday-Monday) * Full Code (Presumed) (Latest Code Status on File) Date Activated Date Inactivated Comments 08/28/2018 4:47 PM 08/29/2018 2:41 PM Care Teams Photographer'S Assistant Relationship Specialty Start Date End Date Rakan Mckinney MD [address] [place] [address] 1 [place] [phone] PCP - General Internal Medicine 08/12/24 Additional Source Comments The information contained in this document represents components of the legal health record. It is not the complete legal health record.[facility]
--- OUTSIDE RECORDS SUMMARY | 2024-12-13 15:55 | XMS_ITS | Encounter Summary ---
Author Organization [facility] Address [address] [facility] [address] [place] [address] Phone Care Team Providers Care Tableau Lead Name Role Phone Marta Chauhan MD Primary Care Provider [phone] Salvador Khoury MD Primary Care Provider + Salvador Khoury MD Primary Care Provider + Roney Tracey MD Primary Care Provider Roney Tracey MD Primary Care Provider [phone] Yandel Man MD Primary Care Provider Rakan Mckinney MD Primary Care Provid er Encounter Details Date Type Department Care Team (Late st Contact Info) Description 04/20/2018 Ancillary Orders [facility] Department [address] [place] [address] Marta Chauhan MD [address] [place] [address] [email or web address] Social History Tobacco Use Types Packs/Day [...] Description 01/27/2025 12:30 PM EST Office Visit [facility] Gastroenterology Clinic [address] [place] [address] Faiza Mckeon, MELONY [address] [address] [email or web address] documented as of this encounter Visit Diagnoses Not on filedocumented in this encounter Additional Health Concerns Infection Onset Date Last Indicated Resolved Time CoV-Risk 10/06/2021 10/06/2021 10/17/2021 1:21 AM EDT documented as of this encounter Care Teams Tableau Lead Relationship Specialty Start Date End Date Marta Chauhan MD [address] [address] [email or web address] PCP - General 10/04/17 06/05/18 Salvador Khoury MD [address] [address] [email or web address] PCP - General Family Medicine 06/06/1801/06/19 Salvador Khoury MD [address] [address] [email or web address] PCP - General Family Medicine 01/07/1908/06 Roney Tracey MD 40 [place] [address] PCP - General Internal Medicine 08/22/19 07/19/20 Roney Tracey MD 40 [place] [address] PCP - General Internal Medicine 07/20/20 10/03/21 Yandel Man MD [address] [place] [address] PCP - General Internal Medicine 10/04/21 08/11/24 Rakan Mckinney MD [address] [place] [phone] PCP - General Internal Medicine 08/12/24 documented as of this encounter Additional Source Comments The information contained in this document represents components of the legal health record. It is not the complete legal health record.[facility]
--- OUTSIDE RECORDS SUMMARY | 2024-12-13 15:55 | XMS_ITS | Encounter Summary ---
Author Organization [facility] Address 399 [facility] [address] [place] [address] Phone Care Team Providers Care Nursing Care Attendant Name Role Phone Marta Chauhan MD Primary Care Provider [phone] Salvador Khoury MD Primary Care Provider + Salvador Khoury MD Primary Care Provider + Roney Tracey MD Primary Care Provider [phone] Roney Tracey MD Primary Care Provider [phone] Yandel Man MD Primary Care Provider Rakan Mckinney MD Primary Care Provid er Encounter Details Date Type Department Care Team (Late st Contact Info) Description 04/20/2018 Procedure Pass [facility], [address] [place] [address] Social History Tobacco Use Types Packs/Day Years [...] Description 01/27/2025 12:30 PM EST Office Visit [facility] Gastroenterology Clinic [address] [place] [address] Faiza Mckeon STRAW BOSS [address] [address] [email or web address] documented as of this encounter Visit Diagnoses Not on filedocumented in this encounter Additional Health Concerns Infection Onset Date Last Indicated Resolved Time CoV-Risk 10/06/2021 10/06/2021 10/17/2021 1:21 AM EDT documented as of this encounter Care Teams Nursing Care Attendant Relationship Specialty Start Date End Date Marta Chauhan MD [address] [address] [email or web address] PCP - General 10/04/17 06/05/18 Salvador Khoury MD [address] [address] [email or web address] PCP - General Family Medicine 06/06/1801/06/19 Salvador Khoury MD [address] [address] [email or web address] PCP - General Family Medicine 01/07/1908/06 Roney Tracey MD 40 [place] [address] [email or web address] PCP - General Internal Medicine 08/22/19 07/19/20 Roney Tracey MD 40 [place] [address] [email or web address] PCP - General Internal Medicine 07/20/20 10/03/21 Yandel Man MD [address] [place] [phone] PCP - General Internal Medicine 10/04/21 08/11/24 Rakan Mckinney MD [address] [place] [phone] PCP - General Internal Medicine 08/12/24 documented as of this encounter Additional Source Comments The information contained in this document represents components of the legal health record. It is not the complete legal health record.[facility]
--- OUTSIDE RECORDS SUMMARY | 2024-12-13 15:55 | XMS_ITS | Encounter Summary ---
Author Organization [facility] Address [address] [place] [address] Phone Care Team Providers Care Bracelet Former Name Role Phone Roney Tracey MD Primary Care Provider [phone] Roney Tracey MD Primary Care Provider [phone] Yandel Man MD Primary Care Provider Rakan Mckinney MD Primary Care Provid er Encounter Details Date Type Department Care Team (Late st Contact Info) Description 08/30/2019 Procedure Pass [address] [place] [address] Social History Tobacco Use Types Packs/Day Years [...] 2:26 PM EDT Sexual Orientation Lesbian or Loepz 06/19/2018 5: 11 PM EDT documented as of this encounter Plan of Treatment Upcoming Encounters Date Type Department Care Team (Late st Contact Info) Description 01/27/2025 12:30 PM EST Office Visit [facility] Gastroenterology Clinic 10 [place] [address] Faiza Mckeon, MELONY [address] [address] [email or web address] documented as of this encounter Visit Diagnoses Not on filedocumented in this encounter Additional Health Concerns Infection Onset Date Last Indicated Resolved Time CoV-Risk 10/06/2021 10/06/2021 10/17/2021 1:21 AM EDT Assessment Noted Time PHQ-2 Depression Total Score: 0 08/21/19 8:21 AM EDT documented as of this encounter Care Teams Bracelet Former Relationship Specialty Start Date End Date Roney Tracey MD [address] [place] [address] [email or web address] PCP - General Internal Medicine 08/22/19 07/19/20 Roney Tracey MD [address] [place] [address] PCP - General Internal Medicine 07/20/20 10/03/21 Yandel Man MD [address] [place] [address] PCP - General Internal Medicine 10/04/21 08/11/24 Rakan Mckinney MD [address] [place] [phone] PCP - General Internal Medicine 08/12/24 documented as of this encounter Additional Source Comments The information contained in this document represents components of the legal health record. It is not the complete legal health record.[facility]
--- OUTSIDE RECORDS SUMMARY | 2024-12-13 15:55 | XMS_ITS | Encounter Summary ---
Author Organization [facility] Address 399 [facility] [address] [place] [address] Phone Care Team Providers Care Ship Steward Name Role Phone Yandel Man MD Primary Care Provider Rakan Mckinney MD Primary Care Provid er Reason for Referral * MRI/CAT Scan - Closed Specialty Diagnoses / Procedures Referred By Contac t Referred To Contact Radiology Diagnoses Pathological fracture, other site, initial encounter for fracture Procedures CT Thoracic Spine Lillian Engel NP [address] [place] [address] Phone: tel: fax: [email or web address] Referral ID Status Reason Start Date Expiration Date Visits Re quested Visits Authorized [id number] Closed 08/05/2024 08/05/2025 1 1 Encounter Details Date Type Department Care Team (Late st Contact Info) Description 08/05/2024 Transcribe Orders Virtual Department 30 [place] [address] Lillian Engel NP [address] [address] [email or web address] Pathological fracture, other site, initial encounter for [...] Description 01/27/2025 12:30 PM EST Office Visit [facility] Clinic [address] [place] [address] Faiza Mckeon, EXPORT PACKER [address] [address] [email or web address] documented as of this encounter [...] Chronic-appearing T12 compression fracture. No acute fracture. Lillain Engel PAPERHANGER CONTRACTOR IMG CT XSPECIALTY ORDER JOSÉ LUIS Final Result documented in this encounter Visit Diagnoses Diagnosis Pathological fracture, other site, initial encounter for fracture- Primary Pathological fracture, other site, initial encounter for fracture documented in this encounter Additional Health Concerns Assessment Noted Time PHQ-2 Depression Total Score: 0 08/21/19 20 8:21 AM EDT documented as of this encounter Care Teams Ship Steward Relationship Specialty Start Date End Date Yandel Man MD [address] [place] [phone] PCP - General Internal Medicine 10/04/21 08/11/24 Rakan Mckinney MD [address] [place] [phone] PCP - General Internal Medicine 08/12/24 documented as of this encounter Additional Source Comments The information contained in this document represents components of the legal health record. It is not the complete legal health record.[facility]
--- OUTSIDE RECORDS SUMMARY | 2024-12-13 15:55 | XMS_ITS | Patient Health Record ---
Author Organization [facility] Address [address] [place] [address] [address] [place] [address] Care Team Providers Care Sheet Metal Operator Name Role Phone Bing Cary Unavailable [phone] Reason For Referral No Information Medications Medication [...] W/U Status Risk Notes Problem Essential hypertension (64371544) Unspecified essential hypertension (401.9) Active confirmed Major Problem Menopausal symptom (50532612) Symptomatic menopausal or female climacteric states (627.2) Active confirmed Major Problem Postmenopausal atrophic vaginitis (74010077) Postmenopausal atrophic vaginitis (627.3) Active confirmed Diag Problem Muscle pain (50953171) Unspecified myalgia and myositis (729.1) Active confirmed Major Problem Intracranial injury of other and unspecified nature without mention of open intracranial wound (854.0) Active confirmed Major Problem Gynecological examination normal (204488165773571) Routine gynecological examination (V72.31) Active confirmed Major Problem Screening for malignant neoplasm of colon (680572387) Special screening for malignant neoplasms, colon (V76.51) Active confirmed Major Plan Of Treatment No Information Insurance Providers Payer Name Payer Address Payer Phone Subscriber Number Group Number Insured Name Patient Relationship to Insured Coverage Start Date Coverage End Date [facility] [address] [address] [place] [address] [id number] LU HOOPER Self - patient is the insured
--- OUTSIDE RECORDS SUMMARY | 2024-12-13 15:55 | XMS_ITS | Encounter Summary ---
Author Organization [facility] Address 399 [facility] [address] [place] [address] Phone Care Team Providers Care Bond Clerk Name Role Phone Salvador Khoury MD Primary Care Provider + Salvador Khoury MD Primary Care Provider + Roney Tracey MD Primary Care Provider [phone] Roney Tracey MD Primary Care Provider [phone] Yandel Man MD Primary Care Provider Rakan Mckinney MD Primary Care Provid er Encounter Details Date Type Department Care Team (Late st Contact Info) Description 09/10/2018 Ancillary Orders [facility] Medical [facility] Orthopedics & Sports Medicine [address] [place] [address] Tiara Ruelas MD [address] [place] [address] Orthopedics & Sports Medicine, [facility] [place], [place] [id number] [email or web address] Social History Tobacco Use Types Packs/Day [...] 01/27/2025 12:30 PM EST Office Visit [facility] Gastroenterology Clinic 10 [place] [address] Faiza Mckeon, LEAD PROGRAMMER ANALYST [address] [address] [email or web address] documented as of this encounter Visit Diagnoses Not on filedocumented in this encounter Additional Health Concerns Infection Onset Date Last Indicated Resolved Time CoV-Risk 10/06/2021 10/06/2021 10/17/2021 1:21 AM EDT documented as of this encounter Care Teams Bond Clerk Relationship Specialty Start Date End Date Salvador Khoury MD [email or web address] PCP - General Family Medicine 06/06/1801/06/19 Salvador Khoury MD [email or web address] PCP - General Family Medicine 01/07/1908/06 Roney Tracey MD [address] [place] [phone] [email or web address] PCP - General Internal Medicine 08/22/19 07/19/20 Roney Tracey MD 40 [place] [address] [email or web address] PCP - General Internal Medicine 07/20/20 10/03/21 Yandel Man MD [address] [place] [phone] PCP - General Internal Medicine 10/04/21 08/11/24 Rakan Mckinney MD [address] [place] [phone] PCP - General Internal Medicine 08/12/24 documented as of this encounter Additional Source Comments The information contained in this document represents components of the legal health record. It is not the complete legal health record.[facility]
== END 2024-12-13 14:49 | disposition home or self-care (01) ==
PROVIDERS: PCP Internal Medicine; Visit Provider Nurse Practitioner Family
DX: S22.000A Wedge compression fracture of unspecified thoracic vertebra, initial encounter for closed fracture (principal); M54.9 Dorsalgia, unspecified; G89.29 Other chronic pain; M47.815 Spondylosis without myelopathy or radiculopathy, thoracolumbar region; M47.816 Spondylosis without myelopathy or radiculopathy, lumbar region
CPT/HCPCS: 99213; G2211

== ENCOUNTER → 2024-12-13 14:07 | Outpatient (BNVA) | payer MEDICARE, SELFPAY | PROVIDERS: PCP Internal Medicine; Visit Provider Nurse Practitioner Family | DX: M47.816 Spondylosis without myelopathy or radiculopathy, lumbar region (principal); M47.815 Spondylosis without myelopathy or radiculopathy, thoracolumbar region; M54.9 Dorsalgia, unspecified; G89.29 Other chronic pain; S22.000A Wedge compression fracture of unspecified thoracic vertebra, initial encounter for closed fracture | CPT/HCPCS: 99212 ==